=== PATIENT | female | born 1935 | race Caucasian/White ===

== ENCOUNTER → 2016-09-18 | Day surgery (SDC) | payer OTHER, MEDICARE ==
[2016-09-10 11:12] VITALS: Ht 162.6 cm; Wt 118.2 kg
[~2016-09-18] VITALS: Ht 162.6 cm; Wt 118.2 kg
[~2016-09-18] MED LIST: ALEN70TA4 PO; ASPCH81X PO; CALC500C70 PO; ENOX80IN SQ; HYDR12.55 PO; LIDOCAINE HCL 2% 2 ML VIAL (20MG/ML) ONE; LISI-461 PO; LPR25 PO; METO1TAB54 PO; MISCCAP80 PO; OMEP20CA9 PO; PHENYLEPHRINE 100MCG/ML 5ML SYR ONE; PITA2TAB PO; POTA1TAB97 PO; PROPOFOL IV EMULSION 10 MG/ML 20 ML VIAL IV ONE; SODIUM CHLORIDE 0.9% 500ML 500 ML IV ONE; SYN50 PO; WARF-246 PO; WARF-280 PO
--- NOTE | 2016-09-18 14:12 | Endo History and Physical ---
History & Physical Date of Service: Sep 18, 2016. Chief Complaint: Referring Physician: History of Present Illness hx polyps Past Surgical History Hx Cardiac Surgery: No Hx Internal Defibrillator: No Hx Pacemaker: No Hx Abdominal Surgery: Yes (APPY, EPI) Hx of Implantable Prosthesis: No Hx Post-Op Nausea and Vomiting: No Hx Cancer Surgery: No Hx Thoracic Surgery: No Hx Orthopedic: Yes (LUMBAR DISCECTOMY) Hx Urinary Tract Surgery: No Family History Colon CA Social History Smoking Status: Never Smoker Hx Substance Use: No Hx Alcohol Use: No Allergies Coded Allergies: Dipyridamole (Verified Allergy, Mild, 09/10/16) Methyldopa (Verified Allergy, Unknown, 09/10/16) Statins (Verified Allergy, Unknown, MUSCLE PAIN, 09/10/16) Sulfa Drugs (Verified Allergy, Unknown, RASH, 09/10/16) Uncoded Allergies: WOOL (Allergy, Unknown, ITCHING, 09/10/16) Current Medications Reported Home Medications Medications Dose Route/Sig Max Daily Dose Days Date Category Dose Instructions Lovenox (Enoxaparin Sodium) 80 Mg/0.8 Ml Inj 100 Mg SQ Q12H 09/18/16 Reported Aspirin Chewable (Aspirin) 81 Mg Chew 162 Mg PO QAM 09/10/16 Reported K-Tab (Potassium Chloride) 20 Meq Tab 1 Tab PO QAM 09/10/16 Reported Zestril (Lisinopril) 10 Mg Tab 10 Mg PO DAILY AT NOON 09/10/16 Reported Prilosec (Omeprazole) 20 Mg Cap 20 Mg PO QAM 09/10/16 Reported Reglan (Metoclopramide Hcl) 5 Mg Tab 5 Mg PO BID 09/10/16 Reported Probiotic (Probiotic Product) 1 Cap Cap 1 Cap PO QPM 09/10/16 Reported Fosamax (Alendronate Sodium) 70 Mg Tab 70 Mg PO WK 09/10/16 Reported Warfarin Sodium 2.5 Mg Tab 2.5 Mg PO 3XWK 03/18/13 Reported TUES,FRI,SUN Lopressor (Metoprolol Tartrate) 25 Mg Tab 1 Dose PO BID 03/18/13 Reported 2 TABS IN AM 1 TAB IN PM Hydrochlorothiazide 12.5 Mg Tab 12.5 Mg PO QAM 03/18/13 Reported Livalo (Pitavastatin Calcium) 2 Mg Tab 2 Mg PO QPM 03/18/13 Reported Warfarin Sodium 5 Mg Tab 5 Mg PO 4XWK 03/18/13 Reported MON,WED,THURS,SAT Synthroid * (Levothyroxine Sodium) 0.05 Mg Tab 0.05 Mg PO QAM 08/25/08 Reported Vital Signs Weight (Kilograms): 118.18 Height (Feet): 5 Height (Inches): 4 Physical Exam AAO x3 Nl s1s2 lungs CTA Abd soft NT/ND + BS - CCE Assessment and Plan colonoscopy
--- NOTE | 2016-09-18 15:07 | GI REPORT ---
Procedure Date: 09/18/2016 2:07 PM Procedure: Colonoscopy Indications: High risk colon cancer surveillance: Personal history of colonic polyps Medicines: Propofol per Anesthesia Complications: No immediate complications. Estimated blood loss: Minimal. Estimated Blood Loss: Estimated blood loss was minimal. Procedure: Pre-Anesthesia Assessment: - Prior to the procedure, a History and Physical was performed, and patient medications and allergies were reviewed. The patient's tolerance of previous anesthesia was also reviewed. The risks and benefits of the procedure and the sedation options and risks were discussed with the patient. All questions were answered, and informed consent was obtained. Prior Anticoagulants: The patient has taken no previous anticoagulant or antiplatelet agents. ASA Grade Assessment: III - A patient with severe systemic disease. After reviewing the risks and benefits, the patient was deemed in satisfactory condition to undergo the procedure. After I obtained informed consent, the scope was passed under direct vision. Throughout the procedure, the patient's blood pressure, pulse, and oxygen saturations were monitored continuously. The Scope was introduced through the anus and advanced to the terminal ileum, with identification of the appendiceal orifice and IC valve. The colonoscopy was performed without difficulty. The patient tolerated the procedure well. The quality of the bowel preparation was good. Findings: The perianal and digital rectal examinations were normal. Pertinent negatives include normal sphincter tone, no palpable rectal lesions and no anal lesion or abnormality was detected. A 3 mm polyp was found in the rectum. The polyp was sessile. The polyp was removed with a cold biopsy forceps. Resection and retrieval were complete. Estimated blood loss was minimal. Verification of patient identification for the specimen was done by the physician and construction services technician using the patient's name and medical record number. A localized area of mildly congested mucosa was found in the distal rectum. Biopsies were taken with a cold forceps for histology. Estimated blood loss was minimal. Verification of patient identification for the specimen was done by the physician and construction services technician using the patient's name and medical record number. Non-bleeding internal hemorrhoids were found during retroflexion. The hemorrhoids were mild. The exam was otherwise without abnormality. The terminal ileum appeared normal. No additional abnormalities were found on retroflexion. Impression: - One 3 mm polyp in the rectum, removed with a cold biopsy forceps. Resected and retrieved. - Congested mucosa in the distal rectum. Biopsied. - Non-bleeding internal hemorrhoids. - The examination was otherwise normal. - The examined portion of the ileum was normal. Recommendation: - Discharge patient to home (ambulatory). - Resume regular diet. - Return to referring physician as previously scheduled. MD Venkatesh Abreu MD 09/18/2016 3:07:13 PM This report has been signed electronically. Note Initiated On: 09/18/2016 2:07 PM
--- NOTE | 2016-09-18 15:10 | Discharge Instructions ---
Endoscopy Patient Instructions Date / Procedure(s) Performed Sep 18, 2016. Colonoscopy Allergy Information Coded Allergies: Dipyridamole (Verified Allergy, Mild, 09/10/16) Methyldopa (Verified Allergy, Unknown, 09/10/16) Sulfa Drugs (Verified Allergy, Unknown, RASH, 09/10/16) Statins (Verified Adverse Reaction, Unknown, MUSCLE PAIN, 09/18/16) Uncoded Allergies: WOOL (Allergy, Unknown, ITCHING, 09/10/16) Discharge Date / Findings Sep 18, 2016. polyp rectum ; mild rectal inflammation Medication Instructions Stopped Medication(s): stopped Warfarin on Friday,bridged with Lovenox,last dose last radha Restart Stopped Medication(s): Reported Home Medications Medications Dose Route/Sig Max Daily Dose Days Date Category Dose Instructions Lovenox (Enoxaparin Sodium) 80 Mg/0.8 Ml Inj 100 Mg SQ Q12H 09/18/16 Reported Aspirin Chewable (Aspirin) 81 Mg Chew 162 Mg PO QAM 09/10/16 Reported K-Tab (Potassium Chloride) 20 Meq Tab 1 Tab PO QAM 09/10/16 Reported Zestril (Lisinopril) 10 Mg Tab 10 Mg PO DAILY AT NOON 09/10/16 Reported Prilosec (Omeprazole) 20 Mg Cap 20 Mg PO QAM 09/10/16 Reported Reglan (Metoclopramide Hcl) 5 Mg Tab 5 Mg PO BID 09/10/16 Reported Probiotic (Probiotic Product) 1 Cap Cap 1 Cap PO QPM 09/10/16 Reported Fosamax (Alendronate Sodium) 70 Mg Tab 70 Mg PO WK 09/10/16 Reported Warfarin Sodium 2.5 Mg Tab 2.5 Mg PO 3XWK 03/18/13 Reported TUES,FRI,SUN Lopressor (Metoprolol Tartrate) 25 Mg Tab 1 Dose PO BID 03/18/13 Reported 2 TABS IN AM 1 TAB IN PM Hydrochlorothiazide 12.5 Mg Tab 12.5 Mg PO QAM 03/18/13 Reported Livalo (Pitavastatin Calcium) 2 Mg Tab 2 Mg PO QPM 03/18/13 Reported Warfarin Sodium 5 Mg Tab 5 Mg PO 4XWK 03/18/13 Reported MON,WED,THURS,SAT Synthroid * (Levothyroxine Sodium) 0.05 Mg Tab 0.05 Mg PO QAM 08/25/08 Reported Resume previous med and continue bridge per coagluation clinic Reported Home Medications Medications Dose Route/Sig Max Daily Dose Days Date Category Dose Instructions Lovenox (Enoxaparin Sodium) 80 Mg/0.8 Ml Inj 100 Mg SQ Q12H 09/18/16 Reported Aspirin Chewable (Aspirin) 81 Mg Chew 162 Mg PO QAM 09/10/16 Reported K-Tab (Potassium Chloride) 20 Meq Tab 1 Tab PO QAM 09/10/16 Reported Zestril (Lisinopril) 10 Mg Tab 10 Mg PO DAILY AT NOON 09/10/16 Reported Prilosec (Omeprazole) 20 Mg Cap 20 Mg PO QAM 09/10/16 Reported Reglan (Metoclopramide Hcl) 5 Mg Tab 5 Mg PO BID 09/10/16 Reported Probiotic (Probiotic Product) 1 Cap Cap 1 Cap PO QPM 09/10/16 Reported Fosamax (Alendronate Sodium) 70 Mg Tab 70 Mg PO WK 09/10/16 Reported Warfarin Sodium 2.5 Mg Tab 2.5 Mg PO 3XWK 03/18/13 Reported TUES,FRI,SUN Lopressor (Metoprolol Tartrate) 25 Mg Tab 1 Dose PO BID 03/18/13 Reported 2 TABS IN AM 1 TAB IN PM Hydrochlorothiazide 12.5 Mg Tab 12.5 Mg PO QAM 03/18/13 Reported Livalo (Pitavastatin Calcium) 2 Mg Tab 2 Mg PO QPM 03/18/13 Reported Warfarin Sodium 5 Mg Tab 5 Mg PO 4XWK 03/18/13 Reported MON,WED,THURS,SAT Synthroid * (Levothyroxine Sodium) 0.05 Mg Tab 0.05 Mg PO QAM 08/25/08 Reported resume coumadin tonight and lovenox per coag clinic Provider Instructions Activity Restrictions - No exercising or heavy lifting for 24 hours. - Do not drink alcohol the day of the procedure. - Do not drive a car or operate machinery until the day after the procedure. - Do not make any important decisions or sign important papers in 24 hours after the procedure. Following Day: - Return to full activity which may include returning to work/school. Diet Start your diet with liquids and light foods (jello, soup, juice, toast). Then eat your usual diet if not nauseated. Treatment For Common After Affects For mild abdominal pain, bloating, or excessive gas: - Rest - Eat lightly - Lie on right side Follow-Up Information Follow-up with Dr. Sharmaine Boggs as scheduled Anesthesia Information What You Should Know You have had a procedure that required some medicine to reduce anxiety and discomfort. This treatment is called moderate sedation. After receiving the treatment, you may be sleepy, but you will be able to breathe on your own. The effects of the treatment may last for several hours. Follow these instructions along with Activity/Diet recommendations noted above: * Do NOT do anything where dizziness or clumsiness would be dangerous. * Rest quietly at home today, then you can be up and about tomorrow. * Have a responsible person stay with you the rest of today. * You may have had an I.V. today. If so, you may take the dressing off later today. Recommendations Call your doctor if: * Trouble breathing * Continuous vomiting for more than 24 hours * Temperature above 101 degrees * Severe abdominal pain or bloating * Pain not relieved by pain medicine ordered * There is increased drainage or redness from any incision * A large amount of rectal bleeding greater than 2-3 tablespoons. (If you had a polyp/s removed or have hemorrhoids, a small amount of blood - from the rectum is to be expected.) * You have any unanswered questions or concerns. IN THE EVENT OF A SERIOUS EMERGENCY, GO TO THE NEAREST EMERGENCY ROOM Your discharge instructions were prepared by provider Venkatesh Fountain. Patient Instructions Signature Page Jessica Jon Patient (or Guardian) Signature/Date: I have read and understand the instructions given to me by my caregivers. Caregiver/RN/Doctor Signature/Date: The above-named patient and/or guardian has received patient instructions on this date. + Original Patient Signature Page (only) stays with chart. Please make copy for patient.
--- NOTE | 2016-09-18 15:40 | Anesthesiology Progress Note ---
Anesthesia Post Op Note Date & Time Sep 18, 2016 at 15:37 Vital Signs Pain Intensity: 0 Vital Signs Past 12 Hours Date Time Temp Pulse Resp B/P Pulse Ox O2 Delivery O2 Flow Rate FiO2 09/18/16 15:26 76 16 169/83 100 Room Air 09/18/16 15:16 76 16 126/64 98 Room Air 09/18/16 15:03 36.7 78 16 188/85 98 Room Air 09/18/16 13:59 36.7 78 16 188/85 98 Room Air Notes Mental Status: alert / awake / arousable, participated in evaluation Pt Amnestic to Procedure: Yes Nausea / Vomiting: adequately controlled Pain: adequately controlled Airway Patency, RR, SpO2: stable & adequate BP & HR: stable & adequate Hydration State: stable & adequate Anesthetic Complications: no major complications apparent The patient is an 81 y/o female with a h/o HTN s/p colonoscopy with Dr. Fountain. Her BP was elevated at 188/75 HR 70 on admission as she did not take her BP medication today. It improved to 169/83 HR 76. She was instructed to take her BP medication as soon as she goes home. She understands and agrees.
[2016-09-18 15:43] VITALS: BP 168/80; PULSE 72; O2SAT 98
== END | disposition home or self-care (01) ==
LOC: C.GI 13:24
PROVIDERS: ATTEND Internal Medicine Gastroenterology
DX: Z12.11 Encounter for screening for malignant neoplasm of colon (principal); Z86.010 Personal history of colon polyps; K62.1 Rectal polyp; K64.8 Other hemorrhoids; I48.91 Unspecified atrial fibrillation; E11.9 Type 2 diabetes mellitus without complications; Z88.2 Allergy status to sulfonamides; Z88.1 Allergy status to other antibiotic agents; Z90.89 Acquired absence of other organs; Z98.890 Other specified postprocedural states; Z79.01 Long term (current) use of anticoagulants; Z68.41 Body mass index [BMI] 40.0-44.9, adult; E66.01 Morbid (severe) obesity due to excess calories; Z80.0 Family history of malignant neoplasm of digestive organs

== ENCOUNTER → 2016-12-20 | Outpatient (CLI) | payer OTHER, MEDICARE ==
[~2016-12-20] MED LIST changes: -CALC500C70 PO; -LIDOCAINE HCL 2% 2 ML VIAL (20MG/ML) ONE; -PHENYLEPHRINE 100MCG/ML 5ML SYR ONE; -PROPOFOL IV EMULSION 10 MG/ML 20 ML VIAL IV ONE; -SODIUM CHLORIDE 0.9% 500ML 500 ML IV ONE
--- NOTE | 2016-12-20 12:35 | MAMMOGRAPHY REPORT ---
BILATERAL DIGITAL SCREENING MAMMOGRAM WITH CAD: 12/20/2016 TECHNIQUE: Current study was also evaluated with a Computer Aided Detection (CAD) system. Bilatera l CC and MLO views were obtained. COMPARISON: Comparison is made to exams dated: 12/15/2014 mammogram, 12/19/2015 mammogram, 11/19/2013 m ammogram, 11/06/2012 mammogram, 11/05/2011 mammogram, and 10/30/2009 mammogram - [facility] enter. BREAST COMPOSITION: There are scattered areas of fibroglandular density in both breasts. FINDINGS: No suspicious masses, calcifications, or areas of architectural distortion are noted in e ither breast. There has been no significant interval change compared to prior exams. There are stab le postsurgical changes from bilateral reduction mammoplasty. Bilateral benign-appearing calcificat ions are not significantly changed. IMPRESSION: ACR BI-RADS CATEGORY 2: BENIGN There is no mammographic evidence of malignancy. A 1 year screening mammogram is recommended. The p atient will receive written notification of the results. Approximately 10% of breast cancers are not detected with mammography. A negative mammographic repor t should not delay biopsy if a clinically suggestive mass is present. Stepahnia Abbott M.D. ah/:12/20/2016 12:25:27 Art Therapist: Tsering ORTIZ(Tomasa)(M), [facility] letter sent: Normal 1/2 BI-RADS Code: ACR BI-RADS Category 2: Benign
== END | disposition home or self-care (01) ==
LOC: C.MAMM 09:44
PROVIDERS: ATTEND Family Medicine
DX: Z12.31 Encounter for screening mammogram for malignant neoplasm of breast (principal)

== ENCOUNTER → 2017-04-04 | Outpatient (CLI) | payer OTHER, MEDICARE ==
--- NOTE | 2017-04-04 15:33 | DIAGNOSTIC IMAGING REPORT ---
RIGHT FINGER(S) MIN 2 VIEWS ROUTINE HISTORY: 82 years-old Female R THUMB INJURY/LACERATION Right COMPARISON: None available TECHNIQUE: 3 views of the right thumb. FINDINGS: There is mild soft tissue swelling of the distal first digit without right opaque foreign body. Severe joint space narrowing with subchondral sclerosis and marginal osteophytic spurring involves the first DIP joint. No erosive changes are seen. There is moderate osteoarthritis of the first carpometacarpal joint with mild metacarpophalangeal degenerative changes present. The bones are mildly demineralized. IMPRESSION: 1. Mild soft tissue swelling of the distal first digit without acute bony abnormality or radiopaque foreign body. 2. 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 The above report was generated using voice recognition software. It may contain grammatical, syntax or spelling errors. Electronically signed by: Aris Hilton M.D. 04/04/2017 3:32 PM Dictated Date/Time: 04/04/2017 3:30 PM
== END | disposition home or self-care (01) ==
LOC: C.RAD 14:56
PROVIDERS: ATTEND Physician Assistant Surgical
DX: S61.011A Laceration without foreign body of right thumb without damage to nail, initial encounter (principal); X58.XXXA Exposure to other specified factors, initial encounter; M18.11 Unilateral primary osteoarthritis of first carpometacarpal joint, right hand

== ENCOUNTER 2020-07-06 05:18 | Observation (INO) ==
--- NOTE | 2020-06-20 13:49 | PAT Medication Instructions ---
Medication Instructions Date of Service June 20, 2020 Home Medications hydrochlorothiazide 12.5 mg PO QAM levothyroxine 50 mcg PO QAM lisinopril 10 mg PO 1200 metoclopramide HCl 5 mg PO BID metoprolol tartrate 50 mg PO HS metoprolol tartrate 75 mg PO QAM potassium chloride 20 meq PO QAM pravastatin 40 mg PO HS warfarin 2.5 mg PO 2XWK warfarin 5 mg PO 3XWK Probiotic 0 mmu cells PO QPM omeprazole 20 mg PO QAM acetaminophen [Tylenol Extra Strength] 1,000 mg PO Q6H PRN aspirin [Aspir-81] 81 mg PO QAM ASK your prescriber and surgeon warfarin DO NOT take the morning of surgery hydrochlorothiazide 12.5 mg PO QAM lisinopril 10 mg PO 1200 potassium chloride 20 meq PO QAM Take morning of surgery With a small sip of water, OTHERWISE NOTHING TO EAT OR DRINK AFTER MIDNIGHT: levothyroxine 50 mcg PO QAM metoprolol tartrate 75 mg PO QAM metoclopramide HCl 5 mg PO BID omeprazole 20 mg PO QAM acetaminophen [Tylenol Extra Strength] 1,000 mg PO Q6H PRN (okay to take up to 4 hours prior to surgery if needed) aspirin [Aspir-81] 81 mg PO QAM Take evening before surgery metoclopramide HCl 5 mg PO BID metoprolol tartrate 50 mg PO HS pravastatin 40 mg PO HS Probiotic 0 mmu cells PO QPM acetaminophen [Tylenol Extra Strength] 1,000 mg PO Q6H PRN (if needed) Other Notes If you have any questions please call us at [phone] or [phone] or [phone] or [phone]
--- NOTE | 2020-06-21 12:03 | Anesthesiology Consultation ---
Date of Service June 21, 2020 Assessment & Plan (1) Encounter for pre-operative examination: COVID Status: As of 06/21 assessment, patient denies travel to endemic area, known exposure/sick contacts, or symptoms of COVID19. Patient instructed that they and their household members must follow strict social distancing guidelines, wear a mask in public and avoid travel for 14 days prior to surgery. Preoperative COVID19 testing to be completed prior to surgery per surgeon's ar rangements. Patient made aware to self-isolate as much as possible between COVID testing and surgery. Surgery previously scheduled for end of April 2020, but patient's was placed in hospice care and has since . Patient had medical and cardiac clearance done at that time. Cardio Clearance 02/23/20 = "No absolute contraindications to surgical knee replacement though elevated risk giving agent underlying morbidities. Will need anticoagulation managed closely perioperatively. Fluid status cautiously managed given underlying valvular disease." Patient reports she will not be seeing her PCP, but PCP will be sending new clearance letter to surgeon's office, presumably once pre-op labs are resulted. Chart Review Chart Review: Acceptable Risk for Surgery (pending surgeon-ordered PCP clearance letter) and Patient seen in Pre Admission Testing Teaching & Discussion Instructed NPO after midnight before surgery, except medications with 15 cc of water. Medication instructions provided according to the PAT guidelines. History Surgery Operation Date: 07/06/20 07:15 Proposed Procedures p Left Total Knee Arthroplasty - Godfrey Sam MD Height/Weight Height: 5 ft 4 in Weight: 75.6 kg Allergies Allergy/AdvReac Type Severity Reaction Status Date / Time benzethonium chloride Allergy Intermediate Rash Verified 06/13/20 09:48 [From Lanacane Shelby] benzocaine Allergy Intermediate Rash Verified 06/13/20 09:48 [From Lanacane Shelby] [id number]-Lvm Reductase Allergy Intermediate MUSCLE PAIN Verified 06/13/20 09:48 Inhibitor wool Allergy Intermediate Rash and Verified 06/13/20 09:48 Itching dipyridamole Allergy Mild Unknown Verified 06/13/20 09:48 sertraline Allergy Mild Rash Verified 06/13/20 09:48 Sulfa (Sulfonamide Allergy Mild RASH Verified 06/13/20 09:48 Antibiotics) venlafaxine Allergy Mild Rash Verified 06/13/20 09:48 methyldopa Allergy Unknown Unknown Verified 06/13/20 09:48 Medications Home Medications Medication Instructions Recorded Confirmed Last Taken hydrochlorothiazide 12.5 mg PO QAM 07/31/18 06/13/20 09/19/18 levothyroxine 50 mcg PO QAM 07/31/18 06/13/20 09/19/18 lisinopril 10 mg PO 1200 07/31/18 06/13/20 09/19/18 metoclopramide HCl 5 mg PO BID 07/31/18 06/13/20 09/19/18 metoprolol tartrate 50 mg PO HS 07/31/18 06/13/20 09/18/18 metoprolol tartrate 75 mg PO QAM 07/31/18 06/13/20 09/19/18 potassium chloride 20 meq PO QAM 07/31/18 06/13/20 09/19/18 pravastatin 40 mg PO HS 07/31/18 06/13/20 09/18/18 warfarin 2.5 mg PO 2XWK 07/31/18 06/13/20 09/17/18 18:00 warfarin 5 mg PO 3XWK 07/31/18 06/13/20 09/18/18 18:00 Probiotic 0 mmu cells PO QPM 09/19/18 06/13/20 09/18/18 omeprazole 20 mg PO QAM 12/03/19 06/13/20 Unknown acetaminophen [Tylenol Extra 1,000 mg PO Q6H PRN 04/06/20 06/13/20 Unknown Strength] aspirin [Aspir-81] 81 mg PO QAM 06/13/20 06/13/20 Unknown Past Medical History Medical History Arthritis Atrial fibrillation FOLLOWS WITH DR. FLORES, on Coumadin. Borderline diabetes DIET MANAGED Constipation CVA (cerebral vascular accident) ~ 2014. No long-term deficits, on ASA 81mg. GERD (gastroesophageal reflux disease) Hypercholesterolemia Hypertension Hypothyroidism SOBOE (shortness of breath on exertion) Spinal stenosis Exercise / Class Metabolic Activity III < 4 Walking/Shop/Light housework (Can do 1 FOS but does get SOB, denies any chest pain. No SOB or CP with ambulation.) Patient did not report chest pain today, but at 04/11/20 PAT appt, reported "Occasional "twinges" of chest pain under L breast at rest or with activity." Chronic for many years, cardio aware. Normal coronaries on caths x 3. Past Family History Family History Mother Diabetes Sister Family hx of colon cancer Father Diabetes Other Cervical malignancy GI malignancy Heart disease Liver malignancy Past Surgical History Surgical History Family history of reaction to anesthesia BROTHER-NAUSEA/VOMITING History of appendectomy History of cardiac catheterization X 3 (NO STENTS PLACED). Normal coronaries on last cath [address] Flores. History of colonoscopy History of discectomy LUMBAR History of tonsillectomy and adenoidectomy History of tooth extraction Hx of hysterectomy Past Anesthesia History No Hx of Anesthesia Complications and No Family Hx of Anesthesia Complications (other than borther PONV) History of PONV No Hx of PONV and No Hx of Motion Sickness Social History Smoking Status: Never smoker Do You Dip or Chew Tobacco: No Hx Alcohol Use: No Hx Substance Use: No substance use type: does not use Review of Systems Pt denies any recent chest pain, shortness of breath, palpitations, cough, fe arden, URI, or uncontrolled acid reflux (controlled with med). Physical Exam Vital Signs BP: 148/79 P: 73bpm SPO2: 98% RA T: 97.7 F R: 16 ENMT Mouth: + dental restorations (one corwn on molar upper R); no chipped teeth and no loose teeth Thyromental Distance: < 3.5 Finger Breadths (3) Mallampati Class: I Neck normal visual inspection; neck extension not limited Respiratory normal respiratory effort Auscultation: lungs clear to auscultation bilaterally Cardiovascular Rate/Rhythm: regular rate; + abnormal rhythm (irreg irreg) Heart Sounds: no murmur Vessels: + carotid bruit (? R sided, very soft) Testing Laboratory Results 06/21/20 12:14 06/21/20 12:14 PT 25.6 Seconds (9.0-12.0) H 06/21/20 12:14 INR 2.6 (0.9-1.1) H 06/21/20 12:14 APTT 35.2 Seconds (21.0-31.0) H 06/21/20 12:14 Hemoglobin A1c 6.1 % (4.5-5.6) H 06/21/20 12:14 Urine Color Yellow 06/21/20 12:14 Urine Appearance Clear (Clear) 06/21/20 12:14 Urine pH 7.0 (4.5-7.5) 06/21/20 12:14 Ur Specific [place] 1.013 (1.000-1.030) 06/21/20 12:14 Urine Protein Negative (Negative) 06/21/20 12:14 Urine Glucose (UA) Negative (Negative) 06/21/20 12:14 Urine Ketones Negative (Negative) 06/21/20 12:14 Urine Nitrite Negative (Negative) 06/21/20 12:14 Ur Leukocyte Esterase Negative (Negative) 06/21/20 12:14 Blood Type A Positive 06/21/20 12:14 Antibody Screen NEGATIVE 06/21/20 12:14 Other Testing Electrocardiogram Date: 02/23/20 Findings: + AFIB @ (86bpm) Anterior infarct, cited on or before 12/18/12. No significant change from 10/09/18. Echocardiogram Date: 02/23/20 EF: 55-59% RWMA: + none The rhythm during the transthoracic echo examination was atrial fibrillation with controlled ventricular response. The left atrium is mildly enlarged. Moderate to severe aortic regurgitation. Mild mitral regurgitation is present and posteriorly directed. Mild tricuspid regurgitation is present. Estimated PASP is 46 mmHg. The proximal ascending thoracic aorta is mildly enlarged. Stress Test Date: 11/18/18 Type: nuclear Resting EF: 64% Lexiscan nuclear stress test reveals a small sized reversible perfusion defect of mild intensity comes in the apical anterior, and apical segments consistent with ischemia in this territory. Gated SPECT imaging reveals normal myocardial thickening and wall motion. Heart rate response and blood pressure response to pharmacologic stress was normal. A. fib was noted throughout the study. *This was reviewed by cardiology at the time, and patient requested continued conservative medical management. "Chronic stable chest pain. History of normal coronary arteries by cardiac catheterization x 3."
[2020-06-21 12:55] LABS: Basophils # (auto) 0.01 K/uL (0-0.2); Basophils % (auto) 0.2 %; Eosinophils # (auto) 0.08 K/uL (0-0.5); Eosinophils % (auto) 1.3 %; Hematocrit (blood only) 39.6 % (37-47); Hemoglobin 12.5 g/dL (12.0-16.0); Immature Granulocytes # (auto) 0.01 K/uL (0.00-0.02); Immature Granulocytes % (auto) 0.2 %; Lymphocytes # (auto) 1.69 K/uL (1.2-3.4); Lymphocytes % (auto) 26.7 %; Mean Corpuscular Hemoglobin 29.3 pg (25-34); Mean Corpuscular Hgb Conc 31.6 g/dL (32-36); Mean Corpuscular Volume 92.7 fL (80-100); Mean Platelet Volume 9.6 fL (7.4-10.4); Monocytes # (auto) 0.51 K/uL (0.11-0.59); Neutrophils # (auto) 4.04 K/uL (1.4-6.5); Neutrophils % (auto) 63.6 %; Platelet Count 273 K/uL (130-400); RDW Coefficient of Variation 14.8 % (11.5-14.5); RDW Standard Deviation 50.4 fL (36.4-46.3); Red Blood Count 4.27 M/uL (4.2-5.4); White Blood Count 6.34 K/uL (4.8-10.8)
[2020-06-21 12:57] LABS: Appearance Urine Clear (Clear); Bilirubin Urine Negative (Negative); Blood Urine Negative (Negative); Color Urine Yellow; Glucose Urine UA Negative (Negative); Ketones Urine Negative (Negative); Leukocyte Esterase Urine Negative (Negative); Nitrite Urine Negative (Negative); Protein Urine Negative (Negative); Specific Gravity Urine 1.013 (1.000-1.030); Urobilinogen Urine Negative (Negative)
[2020-06-21 13:18] LABS: INR 2.6 (0.9-1.1); Partial Thromboplastin Ratio 1.3; Partial Thromboplastin Time 35.2 Seconds (21.0-31.0); Prothrombin Time 25.6 Seconds (9.0-12.0)
[2020-06-21 13:33] LABS: Estimated Average Glucose 128 mg/dl; Hemoglobin A1C 6.1 % (4.5-5.6)
[2020-06-21 14:35] LABS: Potassium 4.6 mmol/L (3.5-5.1)
[2020-06-21 15:31] LABS: BUN Creatinine Ratio 20.7 (10-20); Calcium 9.4 mg/dl (8.5-10.1); Creatinine Clr Calc Pharmacy 50.8 ml/min; Est GFR (African American) 76.2; Est GFR (Non-African American) 65.7
[2020-07-06] MEDS ORDERED: ceFAZolin 2000MG 2,000 MG/15 ML SYR IV SCH (06:00)
[2020-07-06] MEDS ORDERED: METOCLOPRAMIDE HCL 10 MG TABLET PO SCH (06:00)
[2020-07-06] MEDS ORDERED: traMADol HCL 50 MG TABLET PO SCH (06:00)
[2020-07-06] MEDS ORDERED: ACETAMINOPHEN 500 MG TAB PO SCH (06:00)
[2020-07-06] MEDS ORDERED: TRANEXAMIC ACID 1,000 MG **IV Pre-op IV SCH (06:00)
[2020-07-06] MEDS ORDERED: CeleBREX 200 MG CAP PO SCH (06:00)
[2020-07-06] MEDS ORDERED: LR 15ML/HR IV SCH (06:00)
[2020-07-06] MEDS ORDERED: dexAMETHasone 4 MG TAB PO SCH (06:00)
[2020-07-06] MEDS ORDERED: TRANEXAMIC ACID 1,000 MG **IV Intra-op IV SCH (06:00)
[2020-07-06] MEDS ORDERED: FAMOTIDINE 20 MG TAB PO SCH (06:00)
[2020-07-06] MEDS ORDERED: LR 60ML/HR IV SCH (06:00)
[2020-07-06] MEDS ORDERED: BUPIVACAINE 0.5 % 5 MG/1 ML PF 10ML VIAL ONE (06:31)
[2020-07-06] MEDS ORDERED: BUPIVACAINE 0.25% 30 ML VIAL ONE (06:32)
[2020-07-06 06:33] LABS: INR 1.1 (0.9-1.1); Prothrombin Time 11.6 Seconds (9.0-12.0)
[2020-07-06] MEDS ORDERED: LIDOCAINE HCL 2% 2 ML VIAL/AMP(20MG/ML) INFIL ONE (06:49)
[2020-07-06] MEDS ORDERED: PROPOFOL IV EMULSION 10 MG/ML 20 ML VIAL IV ONE (06:49)
[2020-07-06] MEDS ORDERED: fentaNYL citrate 100 MCG/2 ML VIAL ONE (06:52)
[2020-07-06] MEDS ORDERED: MIDAZOLAM HCL 1 MG/ML 2ML VIAL ONE (06:53)
[2020-07-06] MEDS ORDERED: ORTHO JOINT ANESTHETIC ONE (07:07)
--- NOTE | 2020-07-06 07:21 | History & Physical Bridge Note ---
Date of Service July 06, 2020 History & Physical Bridge Note I have examined the patient, reviewed the History & Physical and in the interval since the performance of the History & Physical I have noted the following changes of clinical significance: no changes noted
[2020-07-06] MEDS ORDERED: ROPIVACAINE 0.5% HCL/PF 150 MG, BUPIVACAINE 0.5% MPF 30 ML, EPINEPHrine 30MG/30ML (OR U... INSTIL ONE (07:30)
--- NOTE | 2020-07-06 07:32 | History & Physical Report ---
Date of Service July 06, 2020 Assessment & Plan Admission and Anticipated Discharge Date Admission Date: Assessment & Plan (1) Osteoarthritis of left knee: PRE-OP Diagnosis: Left knee osteoarthritis Planned Procedure: Left total knee arthroplasty Plan: Patient is scheduled to undergo this procedure at the [facility] on July 06, [address] Godfrey Sam. Risks and complications of the procedure such as: Infection, bleeding, pain, scarring, nerve or blood vessel damage, weakness, wound problems, stiffness, incomplete relief of symptoms, hardware failure, hardware loosening, wear, fracture, tendon or ligament injury, blood clots, embolism, heart attack, stroke and were explained to the patient at her visit today by Dr. Sam. Patient understood the risks and informed consent form the procedure was obtained. She also understands the risks of proceeding with surgical intervention during the COVID-19 pandemic. Currently she is asymptomatic and was advised that she will be tested for COVID prior to her surgery. Patient is scheduled for her preanesthesia appointment at the hospital later this afternoon. While she is at the hospital she will obtain a CBC with differential, complete metabolic panel, PT/INR, blood type and screen, urinalysis, urine culture and sensitivity, and EKG, hemoglobin A1c and a nasal culture for MRSA. We have already obtained preoperative medical clearance from the patient's technical services coordinator Dr. Ethan Flores, and we have obtained clearance from her primary care provider Dr. Sharmaine Kelly. During today's visit we discussed specifics of the surgery, the use of antibiotics prior to dental procedures, discharge planning, in-home physical therapy for 2 weeks, DVT prophylaxis, pain management and we reviewed the total knee arthroplasty packet. Patient states she does not need a handicap placard because she already has 1 for her vehicle. She has a walker that she will bring with her on the day of surgery. I advised her that we will provide her with medications for pain control upon discharge from the hospital. She is scheduled for her 2-week postoperative follow-up with myself. Patient verbalized understanding of all information provided during today's visit. She thanked us for the care she received. Patient states she has questions or concerns prior to her surgery, she will contact clinic. History of Present Illness Primary Care Provider: Sharmaine Kelly MD History of Present Illness Chief Complaint: Chief Complaint: Left knee pain Primary Care Provider: Sharmaine Kelly MD History of Present Illness (including history relevant to procedure): HPI this 85-year-old female presents the clinic today for her preoperative history and physical. Patient complains of a 2-year history of medial sided knee pain that is become persistent. She is failed conservative treatment with icing, injections, physical therapy, home exercise regimens, use of extra strength Tylenol and stretching. Patient is not able to take anti-inflammatory agents because of her atrial fibrillation. Past Medical History: Problems: Osteoarthritis of left knee Afib Pre-op evaluation Decubitus ulcer of sacral region, stage 2 Accidental fall Acute knee pain Chronic constipation Bright red rectal bleeding Mastalgia Cutaneous wart Acute sciatica Candidal vaginitis Hypothyroidism Stroke/cerebrovascular accident Hyperlipidemia Hypertension Atrial fibrillation Diabetes Arthritis Gastroparesis Procedure History Procedure Procedure Date Comments Appendectomy Total hysterectomy History of tonsillectomy Discectomy Mammogram 02/11/2019 - IMPRESSIN: ACR BI-RADS CATEGORY 2: BENIGNThere is no mammographic evidence of malignancy. A 1 year screening mammogram is recommended. (02/12/2020) The patient will receive written notification of the results. [facility]. Left basilar opacities suggest atelectasis2.. Cardiomegaly without overt pulmonary edema [facility] 1 injuries of the brachialis, biceps brachii, and triceps muscles2. Low grade tear of the common extensor tendons X-ray of right [facility] Moderate patellofemoral arthritic change2. No acute fractures CT of head [facility] No acute intracranial findings2. Old bilateral frontal lobe infarcts3. Acute nasal bone fractures4. Frontal scalp hematoma CT of face [facility]2018 [facility]. Acute nasal bone fractures2. Smal frontal scalp hematoma MRI of brain without contrast [facility]19[facility]2018 [facility] No acute intracranial findings2. No evidence of acute intracranial hemorrhage3. Old bilateral frontal lobe infarcts and moderate to extensive white matter disease likely on a small vessel ischemic basis4. No evidence of intracranial mass5. No evidence of acute or subacute infarction6. Frontal scalp hematoma CT scan - whole body 09/19/2018 - no acute intracranial findingsno evidence of acute intracranial hemorrhageold bilateral frontal lobe infarcts and moderate to extensive white matter discease likely on a small vessel ischemic basis. Eye examination 09/15/2018 - No evidence of retinopathy. [facility] BI-RADS CATEGORY 1: NEGATIVENo evidence of malignancy Eye examination 08/19/2017 - No evidence of retinopathy. Fingers X-ray 04/04/2017 - 1. Mild soft tissue swelling of the distal first digit without acute bony abnormality or radiopaque foreign body.2. Severe first digit interphlangeal and moderate carpometacarpal osteoarthritis. Mammogram 12/20/2016 - No mammographic evidence of malignancy. Colonoscopy 09/18/2016 - Pathology results: A) Rectum, plypectomy: nonspecific benign polyp B) Distal rectum, biopsy: benign rectal mucosa with specific abnormality. See comment. Comment: The rectal biopsy shows unremarkable architecture. There is no acute colitis. I do not see features of lymphocytic colitis or collagenous colitis. No granuloma are noted. I do not see clear evidence of colitis or any specific process. There is no evidence of a neoplasm. - One 3 mm polyp in the rectum , removed with a cold biopsy forceps, resected and retrieved. Congested mucosa in the distal rectum, biopsied. Non-bleeding internal hemorrhoids. the examination otherwise normal. The examined portion of the ileum was normal. [facility] Bone density scan 06/20/2016 - T-scores : spine 1.5; L femur neck -1.9; R femur neck -1.5; total femur -1.6; forearm -0.7; significantly improved from 04/17. - T-Score -2.3 Mammogram 12/19/2015 - There is no mammographic evidence of malignancy. A 1 year screening is recommended. Dilated retinal eye exam with interpretation by an jogger operator or employee development manager documented and reviewed (DM) 07/13/2015 - no retinopathy Mammogram 12/15/2014 - there is no mammographic evidence of malignancy. a 1 yr screen mamogram is recommeneded Mammogram 11/19/2013 - No evidence of malignancy. One year screening recommended. Holter monitor 09/03/2013 - Afib with controlled ventricular response rate. Average rate 80. Couple episodes of high rate episodes but not sustained. Rare PVC's. Eye examination 06/29/2013 - No diabetic retinopathy Coronary angiography 03/19/2013 - normal Dual energy X-ray absorptiometry (DEXA) scan T score 04/30/2010 - osteopenia at hip & forearm, spine normal Shoulder X-ray 04/13/2010 - Moderate degenerative changes and ostopenia.Downsloping acromion. CT scan of head 08/21/2009 - Actue/subacute ischemic infarct in left frontal lobe involving vascular territory of MCA without evidence of acute intracranial hemorrhage. Chronic right frontal lobe infarct.Periventricular and subcortical white matter hypodensities present which is nonspecific, commonly associated with chronic small vessel ischemic disease. CT of head 09/01/2008 - No acute intracranial findings. CT of brain 08/25/2008 - Very mild increase in size of posterior right frontal infarct.Secondary to normal evalution of infarct rather than true acute extension of structure.Mild chronic small vessel change.No evidence for actue intracranial abnormality. Chest x-ray 08/25/2008 - No acute process X-ray of abdomen 08/25/2008 - Mild ileus.No evidence for obstructive change at this time. CT of abdomen and pelvis 08/21/2008 - Abnormal mass in left rectus abdominis region of abdominal wall suggestion probable hematoma with active extravasation.No acute intraabdominal or intrapelvic process suspected. 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 CT of chest and abdomen 02/26/2008 - Mild atherosclerotic change of thoracic and abdominal aorta.No evidence for aneurysm or dissection.Remainder of study neg. US abdominal scan 02/26/2008 - Limited evidence of pancreas due to overlying bowel content.Eval of abdomen and abdominal aorta otherwise neg.No evidence for focal aneurysm. CT of head 03/10/2007 - No evidence of intracranial hemorrhage or mass effect.Focal encephalomalacic changes in right frontoparietal region suggestion chronic or subacute ischemic infarct.Decrease white matter attenuation suggestion chronic small vessel ischemic disease. Colonoscopy 03/25/2005 Breast reduction 09/08/1989 Allergies and Sensitivities: sulfa drugs Zocor(LFT elevation) Allergy Not found in Search Augmentin(diarrhea) sertraline(dizzy) venlafaxine(dizzy) methyldopa dipyridamole Social history: Patient denies tobacco or illicit drug use. She states she occasionally consumes an alcoholic beverage. Family history: Cancer, heart disease, diabetes, hypertension and stroke Current Home Meds: (Last Updated 04/11 12:48) (Tylenol Arthritis Extended Release) 1,300 mg PO q8h(aspirin 81 mg oral tablet) 81 mg PO Dailycarbonate (calcium (as carbonate) 600 mg oral tablet) 600 mg PO bidtopical (Voltaren 1% topical gel) 1 appl topical qid PRN: Pain 4g to affected area 4 times a day(hydroCHLOROthiazide 12.5 mg oral tablet) TAKE 1 TABLET EVERY DAY(levothyroxine 50 mcg (0.05 mg) oral tablet) TAKE 1 TABLET EVERY DAY(lisinopril 10 mg oral tablet) TAKE 1 TABLET EVERY DAY(metoclopramide 5 mg oral tablet) TAKE 1 TABLET TWICE DAILY(metoprolol tartrate 25 mg oral tablet) 3 tab PO in AM, 2 tab PO in evening; 90 day(omeprazole 20 mg oral delayed release capsule) TAKE 1 CAPSULE EVERY DAYchloride (potassium chloride 20 mEq oral tablet, extended release) TAKE 1 TABLET EVERY DAY(pravastatin 40 mg oral tablet) 40 mg PO Dailymedication (POTASSIUM CHLORIDE ER 20 MEQ Tablet Extended Release) TAKE 1 TABLET EVERY DAY(warfarin 5 mg oral tablet) take 1 tablet by mouth daily ON MON,FRI,,SAT and 1/2 tablet by mouth ON AND FRI Allergies Allergy/AdvReac Type Severity Reaction Status Date / Time [id number] Reductase Allergy Intermediate MUSCLE PAIN Verified 04/06/20 09:11 Inhibitor dipyridamole Allergy Mild Unknown Verified 04/06/20 09:11 sertraline Allergy Mild Rash Verified 04/06/20 09:11 Sulfa (Sulfonamide Allergy Mild RASH Verified 04/06/20 09:11 Antibiotics) venlafaxine Allergy Mild Rash Verified 04/06/20 09:11 benzethonium chloride Allergy Unknown Rash Verified 04/06/20 09:11 [From Lanacane Gardiner] benzocaine Allergy Unknown Rash Verified 04/06/20 09:11 [From Lanacane Gardiner] methyldopa Allergy Unknown Unknown Verified 04/06/20 09:11 WOOL Allergy Intermediate ITCHING, Uncoded 04/06/20 09:11 RASH Home Medications Home Medications Medication Instructions Recorded Confirmed Type aspirin [Aspir-81] 81 mg PO QAM 07/31/18 04/06/20 History hydrochlorothiazide 12.5 mg PO QAM 07/31/18 04/06/20 History levothyroxine 50 mcg PO QAM 07/31/18 04/06/20 History lisinopril 10 mg PO QAM 07/31/18 04/06/20 History metoclopramide HCl 5 mg PO BID 07/31/18 04/06/20 History metoprolol tartrate 50 mg PO HS 07/31/18 04/06/20 History metoprolol tartrate 75 mg PO QAM 07/31/18 04/06/20 History potassium chloride 20 meq PO QAM 07/31/18 04/06/20 History pravastatin 40 mg PO HS 07/31/18 04/06/20 History warfarin 2.5 mg PO 2XWK 07/31/18 04/06/20 History warfarin 5 mg PO 3XWK 07/31/18 04/06/20 History Probiotic 0 mmu cells PO QPM 09/19/18 04/06/20 History omeprazole 20 mg PO QAM 12/03/19 04/06/20 History acetaminophen [Tylenol Extra 1,000 mg PO Q6H PRN 04/06/20 04/06/20 History Strength] calcium carbonate-vitamin D3 1 cap PO QAM 04/06/20 04/06/20 History [Calcium 600 + D(3)] Past Med/Surg History Medical History Arthritis Atrial fibrillation (Chronic) FOLLOWS WITH DR. FLORES, on Coumadin. Borderline diabetes DIET MANAGED Constipation CVA (cerebral vascular accident) ~ 2014. No long-term deficits, on ASA 81mg. GERD (gastroesophageal reflux disease) Hypercholesterolemia Hypertension (Chronic) Hypothyroidism SOBOE (shortness of breath on exertion) Spinal stenosis Surgical History Family history of reaction to anesthesia BROTHER-NAUSEA/VOMITTING History of appendectomy History of cardiac catheterization X 3 (NO STENTS PLACED). Normal coronaries on last cath [address] Flores. History of colonoscopy History of discectomy LUMBAR History of tonsillectomy and adenoidectomy History of tooth extraction Hx of hysterectomy Family History Mother Diabetes Sister Family hx of colon cancer Father Diabetes Other Cervical malignancy GI malignancy Heart disease Liver malignancy Social History Smoking Status: Never smoker Second Hand Exposure: Yes (MOTHER SMOKED/SPOUSE YRS AGO); Hx Alcohol Use: No Hx Substance Use: No Preferred Language: Austrian Communication Ability: Effective Stone Engraver Required: No Beliefs That Will Affect Care: None marital status: Current Living Situation: Alone current occupational status: retired Feels Safe at Home: Yes Review of Systems All systems reviewed & are unremarkable except as noted in HPI & below Physical Exam Results & Data Laboratory Results Lab Results 04/11/20 04/11/20 04/11/20 Range/Units 15:12 15:17 15:17 WBC 5.35 (4.8-10.8) K/uL RBC 4.28 (4.2-5.4) M/uL Hgb 12.5 (12.0-16.0) g/dL Hct 39.3 (37-47) % MCV 91.8 (80-100) fL MCH 29.2 (25-34) pg MCHC 31.8 L (32-36) g/dL RDW Std Deviation 50.0 H (36.4-46.3) fL RDW Coeff of Charlene 14.8 H (11.5-14.5) % Plt Count 256 (130-400) K/uL MPV 9.5 (7.4-10.4) fL Immature Gran % (Auto) 0.2 % Neut % (Auto) 59.5 % Lymph % (Auto) 27.9 % [place] % (Auto) 10.7 % Eos % (Auto) 1.5 % Baso % (Auto) 0.2 % Neut # (Auto) 3.19 (1.4-6.5) K/uL Lymph # (Auto) 1.49 (1.2-3.4) K/uL [place] # (Auto) 0.57 (0.11-0.59) K/uL Eos # (Auto) 0.08 (0-0.5) K/uL Baso # (Auto) 0.01 (0-0.2) K/uL Immature Gran # (Auto) 0.01 (0.00-0.02) K/uL PT (9.0-12.0) Seconds INR (0.9-1.1) Sodium 138 (136-145) mmol/L Potassium 4.9 (3.5-5.1) mmol/L Chloride 103 (98-107) mmol/L Carbon Dioxide 27 (21-32) mmol/L Anion Gap 8.0 (3-11) BUN 20 H (7-18) mg/dl Creatinine 0.80 (0.6-1.2) mg/dl Est Cr Clr Drug Dosing 52.2 ml/min Est GFR ( Amer) 78.5 Est GFR (Non-Af Amer) 67.7 BUN/Creatinine Ratio 24.8 H (10-20) Glucose 91 (70-99) mg/dl Estimat Average Glucose mg/dl Hemoglobin A1c (4.5-5.6) % Calcium 9.7 (8.5-10.1) mg/dl Urine Color Urine Appearance (Clear) Urine pH (4.5-7.5) Ur Specific Kingsley (1.000-1.030) Urine Protein (Negative) Urine Glucose (UA) (Negative) Urine Ketones (Negative) Urine Blood (Negative) Urine Nitrite (Negative) Urine Bilirubin (Negative) Urine Urobilinogen (Negative) Ur Leukocyte Esterase (Negative) Urine WBC (Auto) (0-5) /hpf Urine RBC (Auto) (0-4) /hpf U Hyaline Cast (Auto) (0-5) /lpf U Epithel Cells (Auto) (0-5) /lpf Urine Bacteria (Auto) (Negative) Nasal Screen MRSA (PCR) (Negative) Blood Type A Positive Antibody Screen NEGATIVE 04/11/20 04/11/20 04/11/20 Range/Units 15:17 15:17 15:17 WBC (4.8-10.8) K/uL RBC (4.2-5.4) M/uL Hgb (12.0-16.0) g/dL Hct (37-47) % MCV (80-100) fL MCH (25-34) pg MCHC (32-36) g/dL RDW Std Deviation (36.4-46.3) fL RDW Coeff of Charlene (11.5-14.5) % Plt Count (130-400) K/uL MPV (7.4-10.4) fL Immature Gran % (Auto) % Neut % (Auto) % Lymph % (Auto) % [place] % (Auto) % Eos % (Auto) % Baso % (Auto) % Neut # (Auto) (1.4-6.5) K/uL Lymph # (Auto) (1.2-3.4) K/uL [place] # (Auto) (0.11-0.59) K/uL Eos # (Auto) (0-0.5) K/uL Baso # (Auto) (0-0.2) K/uL Immature Gran # (Auto) (0.00-0.02) K/uL PT 26.9 H (9.0-12.0) Seconds INR 2.7 H (0.9-1.1) Sodium (136-145) mmol/L Potassium (3.5-5.1) mmol/L Chloride (98-107) mmol/L Carbon Dioxide (21-32) mmol/L Anion Gap (3-11) BUN (7-18) mg/dl Creatinine (0.6-1.2) mg/dl Est Cr Clr Drug Dosing ml/min Est GFR ( Amer) Est GFR (Non-Af Amer) BUN/Creatinine Ratio (10-20) Glucose (70-99) mg/dl Estimat Average Glucose 128 mg/dl Hemoglobin A1c 6.1 H (4.5-5.6) % Calcium (8.5-10.1) mg/dl Urine Color Yellow Urine Appearance Clear (Clear) Urine pH 7.5 (4.5-7.5) Ur Specific Kingsley 1.010 (1.000-1.030) Urine Protein Negative (Negative) Urine Glucose (UA) Negative (Negative) Urine Ketones Negative (Negative) Urine Blood Negative (Negative) Urine Nitrite Negative (Negative) Urine Bilirubin Negative (Negative) Urine Urobilinogen Negative (Negative) Ur Leukocyte Esterase Trace H (Negative) Urine WBC (Auto) 1-5 (0-5) /hpf Urine RBC (Auto) 0-4 (0-4) /hpf U Hyaline Cast (Auto) 0 (0-5) /lpf U Epithel Cells (Auto) 5-10 H (0-5) /lpf Urine Bacteria (Auto) Negative (Negative) Nasal Screen MRSA (PCR) (Negative) Blood Type Antibody Screen 04/11/20 Range/Units 15:20 WBC (4.8-10.8) K/uL RBC (4.2-5.4) M/uL Hgb (12.0-16.0) g/dL Hct (37-47) % MCV (80-100) fL MCH (25-34) pg MCHC (32-36) g/dL RDW Std Deviation (36.4-46.3) fL RDW Coeff of Charlene (11.5-14.5) % Plt Count (130-400) K/uL MPV (7.4-10.4) fL Immature Gran % (Auto) % Neut % (Auto) % Lymph % (Auto) % [place] % (Auto) % Eos % (Auto) % Baso % (Auto) % Neut # (Auto) (1.4-6.5) K/uL Lymph # (Auto) (1.2-3.4) K/uL [place] # (Auto) (0.11-0.59) K/uL Eos # (Auto) (0-0.5) K/uL Baso # (Auto) (0-0.2) K/uL Immature Gran # (Auto) (0.00-0.02) K/uL PT (9.0-12.0) Seconds INR (0.9-1.1) Sodium (136-145) mmol/L Potassium (3.5-5.1) mmol/L Chloride (98-107) mmol/L Carbon Dioxide (21-32) mmol/L Anion Gap (3-11) BUN (7-18) mg/dl Creatinine (0.6-1.2) mg/dl Est Cr Clr Drug Dosing ml/min Est GFR ( Amer) Est GFR (Non-Af Amer) BUN/Creatinine Ratio (10-20) Glucose (70-99) mg/dl Estimat Average Glucose mg/dl Hemoglobin A1c (4.5-5.6) % Calcium (8.5-10.1) mg/dl Urine Color Urine Appearance (Clear) Urine pH (4.5-7.5) Ur Specific Kingsley (1.000-1.030) Urine Protein (Negative) Urine Glucose (UA) (Negative) Urine Ketones (Negative) Urine Blood (Negative) Urine Nitrite (Negative) Urine Bilirubin (Negative) Urine Urobilinogen (Negative) Ur Leukocyte Esterase (Negative) Urine WBC (Auto) (0-5) /hpf Urine RBC (Auto) (0-4) /hpf U Hyaline Cast (Auto) (0-5) /lpf U Epithel Cells (Auto) (0-5) /lpf Urine Bacteria (Auto) (Negative) Nasal Screen MRSA (PCR) Negative (Negative) Blood Type Antibody Screen Diagnostic Findings Studies (relevant to the procedure): X-rays: Show continued erosion of the proximal medial tibia with a obvious depression of the subchondral bone. Allergies Allergy/AdvReac Type Severity Reaction Status Date / Time benzethonium chloride Allergy Intermediate Rash Verified 07/06/20 05:38 [From Lanacane Gardiner] benzocaine Allergy Intermediate Rash Verified 07/06/20 05:38 [From Lanacane Gardiner] Hhanhhc-Hjv-Eek Reductase Allergy Intermediate MUSCLE PAIN Verified 07/06/20 05:38 Inhibitor wool Allergy Intermediate Rash and Verified 07/06/20 05:38 Itching dipyridamole Allergy Mild Unknown Verified 07/06/20 05:38 sertraline Allergy Mild Rash Verified 07/06/20 05:38 Sulfa (Sulfonamide Allergy Mild RASH Verified 07/06/20 05:38 Antibiotics) venlafaxine Allergy Mild Rash Verified 07/06/20 05:38 methyldopa Allergy Unknown Unknown Verified 07/06/20 05:38 Home Medications Home Medications Medication Instructions Recorded Confirmed Type hydrochlorothiazide 12.5 mg PO QAM 07/31/18 07/06/20 History levothyroxine 50 mcg PO QAM 07/31/18 06/13/20 History lisinopril 10 mg PO 1200 07/31/18 06/13/20 History metoclopramide HCl 5 mg PO BID 07/31/18 07/06/20 History metoprolol tartrate 50 mg PO HS 07/31/18 07/06/20 History metoprolol tartrate 75 mg PO QAM 07/31/18 06/13/20 History potassium chloride 20 meq PO QAM 07/31/18 07/06/20 History pravastatin 40 mg PO HS 07/31/18 07/06/20 History warfarin 2.5 mg PO 2XWK 07/31/18 07/06/20 History warfarin 5 mg PO 3XWK 07/31/18 07/06/20 History Probiotic 0 mmu cells PO QPM 09/19/18 07/06/20 History omeprazole 20 mg PO QAM 12/03/19 06/13/20 History acetaminophen [Tylenol Extra 1,000 mg PO Q6H PRN 04/06/20 07/06/20 History Strength] aspirin [Aspir-81] 81 mg PO QAM 06/13/20 06/13/20 History Lovenox 07/06/20 History Past Med/Surg History Medical History Arthritis Atrial fibrillation FOLLOWS WITH DR. FLORES, on Coumadin. Borderline diabetes DIET MANAGED Constipation CVA (cerebral vascular accident) ~ 2014. No long-term deficits, on ASA 81mg. GERD (gastroesophageal reflux disease) Hypercholesterolemia Hypertension Hypothyroidism SOBOE (shortness of breath on exertion) Spinal stenosis Surgical History Family history of reaction to anesthesia BROTHER-NAUSEA/VOMITING History of appendectomy History of cardiac catheterization X 3 (NO STENTS PLACED). Normal coronaries on last cath [address] Flores. History of colonoscopy History of discectomy LUMBAR History of tonsillectomy and adenoidectomy History of tooth extraction Hx of hysterectomy Family History Mother Diabetes Sister Family hx of colon cancer Father Diabetes Other Cervical malignancy GI malignancy Heart disease Liver malignancy Social History Smoking Status: Never smoker Second Hand Exposure: Yes (MOTHER SMOKED/SPOUSE YRS AGO); Do You Dip or Chew Tobacco: No; Tobacco Cessation Education Requested by Patient: No Hx Alcohol Use: No Hx Substance Use: No Preferred Language: Austrian Communication Ability: Effective Stone Engraver Required: No Beliefs That Will Affect Care: None marital status: Current Living Situation: Alone current occupational status: retired Other Information That Helps Us Care for You: No Feels Safe at Home: Yes Safety Concerns: Feels Safe At This Time Assistive Devices: Glasses Review of Systems All systems reviewed & are unremarkable except as noted in Subjective Physical Exam Physical Exam: Physical Exam: Physical Exam: (relevant to the procedure, including heart and lung evaluation) General: Alert and oriented x3 with proper grooming and hygiene Eyes: Pupils are equal and reactive to light with accommodation. Extraocular movements are intact Cardiac: Irregularly irregular rate and rhythm with no murmurs or gallops appreciated Lungs: Clear to auscultation throughout with no wheezing, rales or rhonchi Abdomen: Nonobese, nondistended, nontender with normal active bowel sounds Extremities: Left knee exam shows the patient's range of motion to be from 0-120 degrees today. She has a medial more than lateral joint line tenderness. Mild peripatellar tenderness. She has a 1+ effusion. Neuro: Cranial nerves II through XII are intact with no motor or sensory deficit Skin: Normal in appearance no open skin areas or discharge Results & Data ([facility]) Vital Signs (Past 12 Hours) Vital Signs Temp Pulse Resp BP Pulse Ox 07/06/20 06:15 72 20 158/90 H 99 07/06/20 05:40 36.5 C 85 20 171/100 H 99
[2020-07-06] MEDS ORDERED: ePHEDrine sulfate 50 MG/ML AMP IV PRN (07:38)
[2020-07-06] MEDS ORDERED: ONDANSETRON INJ 2 MG/ML 2 ML VIAL IV PRN ×2 (07:38→09:42)
[2020-07-06] MEDS ORDERED: fentaNYL citrate 100 MCG/2 ML VIAL IV PRN (07:38)
[2020-07-06] MEDS ORDERED: ATROPINE SULFATE 0.1 MG/ML 10ML SYR IV PRN (07:38)
[2020-07-06] MEDS ORDERED: MAGNESIUM HYDROXIDE SUSP 30 ML UDC PO PRN (09:42)
[2020-07-06] MEDS ORDERED: NALOXONE HCL 0.4 MG/1 ML VIAL/CARP IV PRN (09:42)
[2020-07-06] MEDS ORDERED: ALUMINUM/MAGNESIUM SUSP 30 ML UDC PO PRN (09:42)
[2020-07-06] MEDS ORDERED: diphenhydrAMINE 50 MG/ML VIAL IV PRN (09:42)
[2020-07-06] MEDS ORDERED: METOCLOPRAMIDE HCL INJ 5 MG/ML 2 ML VIAL IV PRN (09:42)
[2020-07-06] MEDS ORDERED: traMADol HCL 50 MG TABLET PO PRN (09:42)
[2020-07-06] MEDS ORDERED: bisacodyL 10 MG SUPP PR PRN (09:42)
--- NOTE | 2020-07-06 09:42 | Operative Report ---
Post Operative Report Pre & Post Diagnosis Operation Date: 07/06/20 07:15 Pre-Op Diagnosis: Left Knee Osteoarthritis Post-Op Diagnosis: Left Knee Osteoarthritis I identified the patient and participated in the time-out.: Yes Procedure Operation Date: 07/06/20 07:15 Actual Procedures p Left Total Knee Arthroplasty(Left) - Godfrey Sam MD Surgeon Godfrey Sam MD Judicial Administrative Assistant Cara Fitch PAKg Estimated Blood Loss 50 Findings Consistent with Post-Op Diagnosis Specimens none Complications none Disposition Accompanied Patient To Recovery: Yes Disposition: Recovery Room Description of Procedure I was present during the entire procedure assisting with positioning, prepping, draping, retraction, wound closure and dressing application. No fellow available. Please see Dr. Sam procedure note for specifics of the case. I attest to the content of the Intraoperative Record and any orders documented therein. Any exceptions are noted below.
--- NOTE | 2020-07-06 09:45 | Operative Report ---
Post Operative Report Pre & Post Diagnosis Operation Date: 07/06/20 07:15 Pre-Op Diagnosis: Left Knee Osteoarthritis Post-Op Diagnosis: Left Knee Osteoarthritis I identified the patient and participated in the time-out.: Yes Procedure Operation Date: 07/06/20 07:15 Actual Procedures p Left Total Knee Arthroplasty(Left) - Godfrey Sam MD Surgeon Godfrey Sam MD Assembly Technician CHIKI Fitch PA-C Estimated Blood Loss 50 Findings Consistent with Post-Op Diagnosis Specimens Bone and soft tissue contents from the left knee Drains None Anesthesia Type Spinal MAC Complications none Disposition Accompanied Patient To Recovery: No Disposition: Recovery Room Indications 85-year-old female with left knee pain refractory to conservative management. X-rays show [id number] arthritis with some collapse of the medial tibial plateau. I had a long discussion with her about the risks and benefits of surgery, alternatives to surgery, and expected outcomes. After reviewing all these she elected to proceed with surgery. All questions were answered. Informed consent was signed. Description of Procedure Patient was identified in the preoperative holding area where the surgical site, left knee, was marked. Patient was brought back to the operating room, placed on the operating room table, and IV sedation was administered. All bony prominences were padded. Perioperative antibiotics and tranexamic acid were administered. Exam under anesthesia was performed. She had mild pseudolaxity to valgus stressing, opening about 5 mm, range of motion 5 to 135. Ortiz catheter was then placed using sterile technique. The surgical site was prepped and draped in the normal sterile fashion. Prior to incision a multidisciplinary timeout was called. All in the room were in agreement. We began by exsanguinating the limb with an Esmarch bandage. Tourniquet was inflated to 250 mmHg. A 14 cm long incision was made over the anterior aspect of the knee. Varicose veins were identified and cauterized. I dissected through the subcutaneous tissues to the level of the fascia. Full-thickness flaps are raised above the fascia. A median parapatellar arthrotomy was made. Half the fat pad was excised. A medial release was performed with Bovie electrocautery on the proximal tibia. Synovitis in the suprapatellar pouch was removed. The patella was then everted and held with 2 towel clips. The thickness of the patella was measured at 23 mm. Patellar resection was performed. Caliper showed the patella thickness now to be 14 mm. A size 38 mm trial was placed and had a great fit. The 3 drill holes were placed then the trial button was placed. The patellar thickness was now 23 mm which I was very happy with. The patellar trial was then removed, the patella was everted and the knee was flexed up. Osteophytes were removed from the femoral condyles and intercondylar notch. The ACL and PCL were excised. Intramedullary drill guide was drilled into the femur. Distal femoral cutting guide was placed set at 5 degrees of valgus to resect 11 mm off the distal femur. Distal femoral resection was made without difficulty. The tibia was then exposed. The lateral meniscus was sharply excised. The tibial cutting jig was positioned to resect 10 mm off the less involved compartment. The jig was then pinned in position and the tibial cut was made. We then brought the knee into full extension. Lamina spreaders were placed. The medial meniscus was excised. The extension block was then placed for 10 mm thickness poly. This gave us full extension and excellent stability to varus and valgus. Next the knee was flexed up and the femoral sizing guide was placed. The patient sized to a size [] femur. The 3 degree external rotation jig was used to create 2 holes in the distal femur. The jig was removed and the holes were compared to Whitesides axis and the epicondylar axis. We were happy with the rotation, and therefore placed a size three 4-in-1 cutting jig and pinned this into position. Our 4 cuts were made. The cutting jig was removed. The flexion block was then placed with the knee held at 90 degrees. There was excellent stability to varus and valgus at 90 degrees with no gapping medially or laterally. Next the box cutting jig was placed on the distal femur. The box cut was made and the femoral trial was impacted into position. The tibia was sized to a 3 for an all-polyethylene component. The tibial tray was positioned in external rotation on the cut tibial surface and the knee was brought through a full range of motion. Bovie was used to millie the rotation of the tibial component. We then pinned the tibial tray into position and used the intramedullary drill followed by the keel punch. The trial polyethylene was then placed and the knee was brought through a full range of motion. I was very happy with the stability through a full range of motion, and the patellar tracking was excellent. Next the trial components were removed. The bone cuts were then irrigated and dried while the cement was mixed on the back table. The femoral component was cemented on first. Excess cement was removed. A lap sponge was placed over the femoral component for protection, then the tibia was subluxated anteriorly. The tibial component was then cemented in place. Again excess cement was removed. The trial polyethylene was then placed and the knee was brought into full extension and held there until the cement cured. The patella was cemented and clamped. Dilute Betadine solution was then allowed to irrigate the knee while the cement cured. Once the cement was fully cured, the tourniquet was let down and meticulous hemostasis was ensured. The wound was irrigated out with copious amounts normal saline. The knee was brought through a full range of motion and we are very happy with the patella tracking and the stability. Therefore, the trial tibial polyethylene was removed and the real size 3 polyethylene 10 mm thickness was placed. We then began to close. Interrupted 0 Vicryl suture was used to repair the patellar retinaculum in fi [id number] fashion. The quadriceps and patellar tendons were run with #1 Ethibond. The deep dermal layer was closed with interrupted 2-0 Vicryl. Zipline was used for the skin. A compressive dressing was placed. Patient's sedation was lifted and was transferred to recovery room in stable condition. Summary of implants: Depuy Sigma Posterior Stabilized Cemented Femur, size 4 Tibia all-polyethylene implant, 10 mm thickness, size 3 Oval come patella, size 38 mm 2 batches of simplex bone cement Postoperative course: Patient will be admitted to the floor for pain control and monitoring. Weightbearing as tolerated with no knee range of motion for 48 hours. Aspirin for DVT prophylaxis. I attest to the content of the Intraoperative Record and any orders documented therein. Any exceptions are noted below.
[2020-07-06] MEDS ORDERED: HYDROmorphone INJ 0.5 MG/0.5 ML SYR IV PRN (09:47)
[2020-07-06] MEDS ORDERED: ACETAMINOPHEN 500 MG TAB PO PRN (09:51)
--- NOTE | 2020-07-06 10:16 | XRay Report ---
XR knee LT 1 or 2V routine HISTORY: 85 years-old Female Surgical Post Op left knee total joint arthroplasty COMPARISON: Left knee radiographs 04/11/2020 TECHNIQUE: 2 views of the left knee FINDINGS: Left knee total joint arthroplasty and patella resurfacing. Expected postsurgical soft tissue swellin g and deep tissue air. No acute fracture unexpected opaque foreign body. Satisfactory alignment. Daniela rial calcifications. IMPRESSION: Left knee total joint arthroplasty with expected postoperative changes. ACT 112: Negative or not required by law. The above report was generated using voice recognition software. It may contain grammatical, syntax o r spelling errors. Electronically signed by: Aris Hilton M.D. 07/06/2020 10:14 AM
--- NOTE | 2020-07-06 12:38 | Anesthesiology Progress Note ---
Date of Service July 06, 2020 Anesthesia Post Procedure Vital Signs Vital Signs: Temp Pulse Pulse Resp BP Pulse Ox 07/06/20 12:30 78 17 156/75 H 96 07/06/20 12:15 36.4 C L 77 20 136/88 97 07/06/20 12:05 74 19 141/85 H 98 07/06/20 11:55 90 24 153/77 H 98 07/06/20 11:45 84 15 145/85 H 95 07/06/20 11:35 36.7 C 80 19 154/85 H 98 07/06/20 11:25 71 21 140/84 98 07/06/20 11:15 65 12 133/87 97 07/06/20 11:05 70 18 124/54 L 97 07/06/20 10:55 69 15 136/75 99 07/06/20 10:45 68 19 134/79 98 07/06/20 10:35 36.6 C 75 16 128/62 97 07/06/20 10:25 72 12 131/74 96 07/06/20 10:15 68 23 136/68 98 07/06/20 10:05 72 18 125/57 L 97 07/06/20 09:55 82 19 125/79 98 07/06/20 09:46 36.3 C L 76 17 106/72 100 07/06/20 06:15 72 20 158/90 H 99 07/06/20 05:40 36.5 C 85 20 171/100 H 99 Pain Intensity Left Knee: Pain Intensity: 0 Transfer of Care Handoff Completed per policy Notes Mental Status: alert / awake / arousable and participated in evaluation Nausea / Vomiting: adequately controlled Pain: adequately controlled Airway Patency, RR, SpO2: stable & adequate BP & HR: stable & adequate Hydration State: stable & adequate Neuraxial Anesthesia: was administered and sensory block is resolving Anesthetic Complications: no major complications apparent and Pt Satisfied with anesthetic care
[2020-07-06] MEDS ORDERED: INFLUENZA ADMINISTRATION CHARGE ONE (13:04)
[2020-07-06] MEDS ORDERED: INFLUENZA VIRUS QUAD VACCINE 0.5 ML SYR IM ONE (13:04)
[2020-07-06] MEDS: SODIUM CHLORIDE 0.9% 1000ML 1,000 ML IV SCH ×2 (13:26→23:57)
[2020-07-06] MEDS ORDERED: Nursing to Pharmacy Communication SCH (13:30)
[2020-07-06] MEDS ORDERED: ORTHO WARFARIN NOMOGRAM SCH (14:00)
[2020-07-06] MEDS: lisinopril 10 MG TAB PO SCH (14:50)
[2020-07-06] MEDS: ceFAZolin 2000MG 2,000 MG/15 ML SYR IV SCH ×2 (14:50→21:45)
[2020-07-06] MEDS: ACETAMINOPHEN 500 MG TAB PO SCH ×2 (14:51→21:45)
[2020-07-06] MEDS: KETOROLAC TROMETHAMINE 15 MG/ML VIAL IV SCH ×2 (14:52→20:37)
[2020-07-06] MEDS ORDERED: COUGH DROP (SUGAR FREE) LOZ 24 LOZ/1 BOX BUCCAL PRN (15:50)
[2020-07-06] MEDS ORDERED: WARFARIN SOD 5 MG TAB PO SCH (16:00)
[2020-07-06] MEDS ORDERED: Scopolamine CHECK PATCH PLACEMENT SCH (16:00)
[2020-07-06] MEDS ORDERED: WARFARIN SOD 5 MG TAB PO ONE (16:00)
[2020-07-06] MEDS: METOCLOPRAMIDE HCL 5 MG TABLET PO SCH (20:34)
[2020-07-06] MEDS: DOCUSATE SODIUM 100 MG CAP PO SCH (20:37)
[2020-07-06] MEDS ORDERED: PRAVASTATIN SOD 40 MG TAB PO SCH (21:00)
[2020-07-06] MEDS ORDERED: SENNA 8.6 MG TAB PO SCH (21:00)
[2020-07-06] MEDS ORDERED: METOPROLOL TARTRATE 50 MG TAB PO SCH (21:00)
[2020-07-06] MEDS ORDERED: ADVANCED PROBIOTIC 1250 MG CAPSULE PO SCH (21:00)
[2020-07-07] MEDS: KETOROLAC TROMETHAMINE 15 MG/ML VIAL IV SCH ×2 (02:50→08:43)
[2020-07-07] MEDS: ACETAMINOPHEN 500 MG TAB PO SCH (05:57)
[2020-07-07 05:58] LABS: Hematocrit (blood only) 30.8 % (37-47); Hemoglobin 9.8 g/dL (12.0-16.0); Mean Corpuscular Hemoglobin 29.4 pg (25-34); Mean Corpuscular Hgb Conc 31.8 g/dL (32-36); Mean Corpuscular Volume 92.5 fL (80-100); Mean Platelet Volume 9.7 fL (7.4-10.4); Platelet Count 223 K/uL (130-400); RDW Coefficient of Variation 15.1 % (11.5-14.5); RDW Standard Deviation 50.8 fL (36.4-46.3); Red Blood Count 3.33 M/uL (4.2-5.4); White Blood Count 13.17 K/uL (4.8-10.8)
[2020-07-07 06:20] LABS: INR 1.1 (0.9-1.1); Prothrombin Time 11.9 Seconds (9.0-12.0)
[2020-07-07 06:30] LABS: BUN Creatinine Ratio 26.3 (10-20); Creatinine Clr Calc Pharmacy 39.7 ml/min; Est GFR (African American) 56.5; Est GFR (Non-African American) 48.7; Potassium 4.5 mmol/L (3.5-5.1)
[2020-07-07] MEDS ORDERED: LEVOTHYROXINE SODIUM 50 MCG TABLET PO SCH (06:30)
[2020-07-07] MEDS ORDERED: dexAMETHasone 4 MG TAB PO SCH (08:00)
[2020-07-07] MEDS: METOCLOPRAMIDE HCL 5 MG TABLET PO SCH (08:41)
[2020-07-07] MEDS: DOCUSATE SODIUM 100 MG CAP PO SCH (08:42)
[2020-07-07] MEDS ORDERED: METOPROLOL TARTRATE 25 MG TAB PO SCH (09:00)
[2020-07-07] MEDS ORDERED: MULTIVITAMIN TAB PO SCH (09:00)
[2020-07-07] MEDS ORDERED: ASPIRIN 81 MG ECTAB PO SCH (09:00)
[2020-07-07] MEDS ORDERED: PANTOprazole 40 MG TAB PO SCH (09:00)
[2020-07-07] MEDS ORDERED: POTASSIUM CHLORIDE 20 MEQ TABCR PO SCH (09:00)
[2020-07-07] MEDS ORDERED: hydroCHLOROthiazide 25 MG TAB PO SCH (09:00)
--- NOTE | 2020-07-07 10:52 | Orthopedic Progress Note ---
Date of Service July 07, 2020 Assessment & Plan (1) S/P total knee replacement using cement: Weightbearing as tolerated with immobilizer and walker assistance. Immobilizer use for the first 48 hours postoperatively PT/OT Keep Silverlon dressing in place until 2-week follow-up DVT prophylaxis with NADYA stockings and Coumadin INR checks twice weekly for 6 weeks with goal INR of 1.8-2.2 Ice with EZ WRAP Pain control with p.o. meds Plan on discharge home today with in-home therapy Follow-up with [facility] orthopedics in 2 weeks as you were previously scheduled With questions call [phone] Admission and Anticipated Discharge Date Admission Date: July 06, 2020 Subjective This 85-year-old female seen today, 1 day following a left total knee arthroplasty. Patient states she is doing very well. She states she had physical therapy and occupational therapy this morning, and was able to do all activities without difficulty. Currently she is sitting in the bedside chair with her immobilizer in place and with ice over her knee. She states that her pain has been well managed with the p.o. pain medication. Currently she denies chest pain, shortness of breath, fever, chills, sweats, nausea, vomiting, numbness or tingling in the left lower extremity or lethargy. She states that she is ready to be discharged home after lunch today. She states that her sister is going to help her for the next few weeks, and she plans on having in- home therapy work with her on range of motion and strengthening of the left lower extremity. Review of Systems Review of Systems: All systems reviewed & are unremarkable except as noted in Subjective Physical Exam Physical Exam: Left knee: Patient is able to perform a straight leg raise test without difficulty. She is able to flex her knee to 90 degrees without pain. Her dressing was clean dry and intact. I remove the dressing and there is scant amount of bloody drainage on the ABD pads. Zipper was in place with no palpable fluctuance or active drainage. A Silverlon dressing was applied over the zipper and patient is to keep this in place until her 2-week postoperative follow-up visit. Patient is able to actively dorsi and plantarflex her foot without difficulty. Her calf is soft and supple nontender to palpation. Her peripheral pulses were 2+. Her capillary refill is less than 2 seconds. Patient was neurovascularly intact in left lower extremity and she was easily able to transition from seated to a standing position. Results & Data ([facility]) Vital Signs (Past 12 Hours) Vital Signs Temp Pulse Resp BP Pulse Ox 07/07/20 07:30 36.5 C 77 16 136/57 L 95 07/07/20 04:06 36.2 C L 80 16 105/61 97 Laboratory Results 07/07/20 07/07/20 07/07/20 Range/Units 05:21 05:21 05:21 WBC 13.17 H (4.8-10.8) K/uL RBC 3.33 L (4.2-5.4) M/uL Hgb 9.8 L (12.0-16.0) g/dL Hct 30.8 L (37-47) % MCV 92.5 (80-100) fL MCH 29.4 (25-34) pg MCHC 31.8 L (32-36) g/dL RDW Std Deviation 50.8 H (36.4-46.3) fL RDW Coeff of Charlene 15.1 H (11.5-14.5) % Plt Count 223 (130-400) K/uL MPV 9.7 (7.4-10.4) fL PT 11.9 (9.0-12.0) Seconds INR 1.1 (0.9-1.1) Sodium 137 (136-145) mmol/L Potassium 4.5 (3.5-5.1) mmol/L Chloride 105 (98-107) mmol/L Carbon Dioxide 24 (21-32) mmol/L Anion Gap 8.0 (3-11) BUN 28 H (7-18) mg/dl Creatinine 1.05 (0.6-1.2) mg/dl Est Cr Clr Drug Dosing 39.7 ml/min Est GFR ( Amer) 56.5 Est GFR (Non-Af Amer) 48.7 BUN/Creatinine Ratio 26.3 H (10-20) Glucose 129 H (70-99) mg/dl Calcium 8.0 L (8.5-10.1) mg/dl
--- NOTE | 2020-07-07 10:53 | Discharge Summary ---
Date of Service July 07, 2020 Admission HPI Per Admitting Provider History of Present Illness Chief Complaint: Chief Complaint: Left knee pain Primary Care Provider: Sharmaine Kelly MD History of Present Illness (including history relevant to procedure): HPI this 85-year-old female presents the clinic today for her preoperative history and physical. Patient complains of a 2-year history of medial sided knee pain that is become persistent. She is failed conservative treatment with icing, injections, physical therapy, home exercise regimens, use of extra strength Tylenol and stretching. Patient is not able to take anti-inflammatory agents because of her atrial fibrillation. Past Medical History: Problems: Osteoarthritis of left knee Afib Pre-op evaluation Decubitus ulcer of sacral region, stage 2 Accidental fall Acute knee pain Chronic constipation Bright red rectal bleeding Mastalgia Cutaneous wart Acute sciatica Candidal vaginitis Hypothyroidism Stroke/cerebrovascular accident Hyperlipidemia Hypertension Atrial fibrillation Diabetes Arthritis Gastroparesis Procedure History Procedure Procedure Date Comments Appendectomy Total hysterectomy History of tonsillectomy Discectomy Mammogram 02/11/2019 - IMPRESSIN: ACR BI-RADS CATEGORY 2: BENIGNThere is no mammographic evidence of malignancy. A 1 year screening mammogram is recommended. (02/12/2020) The patient will receive written notification of the results. [facility]. Left basilar opacities suggest atelectasis2.. Cardiomegaly without overt pulmonary edema [facility] 1 injuries of the brachialis, biceps brachii, and triceps muscles2. Low grade tear of the common extensor tendons X-ray of right [facility]. Moderate patellofemoral arthritic change2. No acute fractures CT of head [facility] No acute intracranial findings2. Old bilateral frontal lobe infarcts3. Acute nasal bone fractures4. Frontal scalp hematoma CT of face [facility]. Acute nasal bone fractures2. Smal frontal scalp hematoma MRI of brain without contrast [facility] No acute intracranial findings2. No evidence of acute intracranial hemorrhage3. Old bilateral frontal lobe infarcts and moderate to extensive white matter disease likely on a small vessel ischemic basis4. No evidence of intracranial mass5. No evidence of acute or subacute infarction6. Frontal scalp hematoma CT scan - whole body 09/19/2018 - no acute intracranial findingsno evidence of acute intracranial hemorrhageold bilateral frontal lobe infarcts and moderate to extensive white matter discease likely on a small vessel ischemic basis. Eye examination 09/15/2018 - No evidence of retinopathy. [facility] ACR BI-RADS CATEGORY 1: NEGATIVENo evidence of malignancy Eye examination 08/19/2017 - No evidence of retinopathy. Fingers X-ray 04/04/2017 - 1. Mild soft tissue swelling of the distal first digit without acute bony abnormality or radiopaque foreign body.2. Severe first digit interphlangeal and moderate carpometacarpal osteoarthritis. Mammogram 12/20/2016 - No mammographic evidence of malignancy. Colonoscopy 09/18/2016 - Pathology results: A) Rectum, plypectomy: nonspecific benign polyp B) Distal rectum, biopsy: benign rectal mucosa with specific abnormality. See comment. Comment: The rectal biopsy shows unremarkable architecture. There is no acute colitis. I do not see features of lymphocytic colitis or collagenous colitis. No granuloma are noted. I do not see clear evidence of colitis or any specific process. There is no evidence of a neoplasm. - One 3 mm polyp in the rectum , removed with a cold biopsy forceps, resected and retrieved. Congested mucosa in the distal rectum, biopsied. Non-bleeding internal hemorrhoids. the examination otherwise normal. The examined portion of the ileum was normal. [facility] Bone density scan 06/20/2016 - T-scores : spine 1.5; L femur neck -1.9; R femur neck -1.5; total femur - 1.6; forearm -0.7; significantly improved from 04/17. - T-Score -2.3 Mammogram 12/19/2015 - There is no mammographic evidence of malignancy. A 1 year screening is recommended. Dilated retinal eye exam with interpretation by an tunnel worker or visual developer documented and reviewed (DM) 07/13/2015 - no retinopathy Mammogram 12/15/2014 - there is no mammographic evidence of malignancy. a 1 yr screen mamogram is recommeneded Mammogram 11/19/2013 - No evidence of malignancy. One year screening recommended. Holter monitor 09/03/2013 - Afib with controlled ventricular response rate. Average rate 80. Couple episodes of high rate episodes but not sustained. Rare PVC's. Eye examination 06/29/2013 - No diabetic retinopathy Coronary angiography 03/19/2013 - normal Dual energy X-ray absorptiometry (DEXA) scan T score 04/30/2010 - osteopenia at hip & forearm, spine normal Shoulder X-ray 04/13/2010 - Moderate degenerative changes and ostopenia.Downsloping acromion. CT scan of head 08/21/2009 - Actue/subacute ischemic infarct in left frontal lobe involving vascular territory of MCA without evidence of acute intracranial hemorrhage. Chronic right frontal lobe infarct.Periventricular and subcortical white matter hypodensities present which is nonspecific, commonly associated with chronic small vessel ischemic disease. CT of head 09/01/2008 - No acute intracranial findings. CT of brain 08/25/2008 - Very mild increase in size of posterior right frontal infarct.Secondary to normal evalution of infarct rather than true acute extension of structure.Mild chronic small vessel change.No evidence for actue intracranial abnormality. Chest x-ray 08/25/2008 - No acute process X-ray of abdomen 08/25/2008 - Mild ileus.No evidence for obstructive change at this time. CT of abdomen and pelvis 08/21/2008 - Abnormal mass in left rectus abdominis region of abdominal wall suggestion probable hematoma with active extravasation.No acute intraabdominal or intrapelvic process suspected. 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 CT of chest and abdomen 02/26/2008 - Mild atherosclerotic change of thoracic and abdominal aorta.No evidence for aneurysm or dissection.Remainder of study neg. US abdominal scan 02/26/2008 - Limited evidence of pancreas due to overlying bowel content.Eval of abdomen and abdominal aorta otherwise neg.No evidence for focal aneurysm. CT of head 03/10/2007 - No evidence of intracranial hemorrhage or mass effect.Focal encephalomalacic changes in right frontoparietal region suggestion chronic or subacute ischemic infarct.Decrease white matter attenuation suggestion chronic small vessel ischemic disease. Colonoscopy 03/25/2005 Breast reduction 09/08/1989 Allergies and Sensitivities: sulfa drugs Zocor(LFT elevation) Allergy Not found in Search Augmentin(diarrhea) sertraline(dizzy) venlafaxine(dizzy) methyldopa dipyridamole Social history: Patient denies tobacco or illicit drug use. She states she occasionally consumes an alcoholic beverage. Family history: Cancer, heart disease, diabetes, hypertension and stroke Current Home Meds: (Last Updated 04/11 12:48) (Tylenol Arthritis Extended Release) 1,300 mg PO q8h(aspirin 81 mg oral tablet) 81 mg PO Dailycarbonate (calcium (as carbonate) 600 mg oral tablet) 600 mg PO bidtopical (Voltaren 1% topical gel) 1 appl topical qid PRN: Pain 4g to affected area 4 times a day(hydroCHLOROthiazide 12.5 mg oral tablet) TAKE 1 TABLET EVERY DAY(levothyroxine 50 mcg (0.05 mg) oral tablet) TAKE 1 TABLET EVERY DAY(lisinopril 10 mg oral tablet) TAKE 1 TABLET EVERY DAY(metoclopramide 5 mg oral tablet) TAKE 1 TABLET TWICE DAILY(metoprolol tartrate 25 mg oral tablet) 3 tab PO in AM, 2 tab PO in evening; 90 day(omeprazole 20 mg oral delayed release capsule) TAKE 1 CAPSULE EVERY DAYchloride (potassium chloride 20 mEq oral tablet, extended release) TAKE 1 TABLET EVERY DAY(pravastatin 40 mg oral tablet) 40 mg PO Dailymedication (POTASSIUM CHLORIDE ER 20 MEQ Tablet Extended Release) TAKE 1 TABLET EVERY DAY(warfarin 5 mg oral tablet) take 1 tablet by mouth daily ON FRI,FRI,,FRI and 1/2 tablet by mouth ON AND FRI Allergies Allergy/AdvReac Type Severity Reaction Status Date / Time [id number]-[id number]-[id number] Reductase Allergy Intermediate MUSCLE PAIN Verified 04/06/20 09:11 Inhibitor dipyridamole Allergy Mild Unknown Verified 04/06/20 09:11 sertraline Allergy Mild Rash Verified 04/06/20 09:11 Sulfa (Sulfonamide Allergy Mild RASH Verified 04/06/20 09:11 Antibiotics) venlafaxine Allergy Mild Rash Verified 04/06/20 09:11 benzethonium chloride Allergy Unknown Rash Verified 04/06/20 09:11 [From Lanacane Copan] benzocaine Allergy Unknown Rash Verified 04/06/20 09:11 [From Lanacane Copan] methyldopa Allergy Unknown Unknown Verified 04/06/20 09:11 WOOL Allergy Intermediate ITCHING, Uncoded 04/06/20 09:11 RASH Home Medications Home Medications Medication Instructions Recorded Confirmed Type aspirin [Aspir-81] 81 mg PO QAM 07/31/18 04/06/20 History hydrochlorothiazide 12.5 mg PO QAM 07/31/18 04/06/20 History levothyroxine 50 mcg PO QAM 07/31/18 04/06/20 History lisinopril 10 mg PO QAM 07/31/18 04/06/20 History metoclopramide HCl 5 mg PO BID 07/31/18 04/06/20 History metoprolol tartrate 50 mg PO HS 07/31/18 04/06/20 History metoprolol tartrate 75 mg PO QAM 07/31/18 04/06/20 History potassium chloride 20 meq PO QAM 07/31/18 04/06/20 History pravastatin 40 mg PO HS 07/31/18 04/06/20 History warfarin 2.5 mg PO 2XWK 07/31/18 04/06/20 History warfarin 5 mg PO 3XWK 07/31/18 04/06/20 History Probiotic 0 mmu cells PO QPM 09/19/18 04/06/20 History omeprazole 20 mg PO QAM 12/03/19 04/06/20 History acetaminophen [Tylenol Extra 1,000 mg PO Q6H PRN 04/06/20 04/06/20 History Strength] calcium carbonate-vitamin D3 1 cap PO QAM 04/06/20 04/06/20 History [Calcium 600 + D(3)] Past Med/Surg History Medical History Arthritis Atrial fibrillation (Chronic) FOLLOWS WITH DR. FLORES, on Coumadin. Borderline diabetes DIET MANAGED Constipation CVA (cerebral vascular accident) ~ 2014. No long-term deficits, on ASA 81mg. GERD (gastroesophageal reflux disease) Hypercholesterolemia Hypertension (Chronic) Hypothyroidism SOBOE (shortness of breath on exertion) Spinal stenosis Surgical History Family history of reaction to anesthesia BROTHER-NAUSEA/VOMITTING History of appendectomy History of cardiac catheterization X 3 (NO STENTS PLACED). Normal coronaries on last cath [address] Flores. History of colonoscopy History of discectomy LUMBAR History of tonsillectomy and adenoidectomy History of tooth extraction Hx of hysterectomy Family History Mother Diabetes Sister Family hx of colon cancer Father Diabetes Other Cervical malignancy GI malignancy Heart disease Liver malignancy Social History Smoking Status: Never smoker Second Hand Exposure: Yes (MOTHER SMOKED/SPOUSE YRS AGO); Hx Alcohol Use: No Hx Substance Use: No Preferred Language: Ivorian Communication Ability: Effective Broker Required: No Beliefs That Will Affect Care: None marital status: Current Living Situation: Alone current occupational status: retired Feels Safe at Home: Yes Review of Systems All systems reviewed & are unremarkable except as noted in HPI & below Results & Data Laboratory Results Lab Results 04/11/20 04/11/20 04/11/20 Range/Units 15:12 15:17 15:17 WBC 5.35 (4.8-10.8) K/uL RBC 4.28 (4.2-5.4) M/uL Hgb 12.5 (12.0-16.0) g/dL Hct 39.3 (37-47) % MCV 91.8 (80-100) fL MCH 29.2 (25-34) pg MCHC 31.8 L (32-36) g/dL RDW Std Deviation 50.0 H (36.4-46.3) fL RDW Coeff of Charlene 14.8 H (11.5-14.5) % Plt Count 256 (130-400) K/uL MPV 9.5 (7.4-10.4) fL Immature Gran % (Auto) 0.2 % Neut % (Auto) 59.5 % Lymph % (Auto) 27.9 % [place] % (Auto) 10.7 % Eos % (Auto) 1.5 % Baso % (Auto) 0.2 % Neut # (Auto) 3.19 (1.4-6.5) K/uL Lymph # (Auto) 1.49 (1.2-3.4) K/uL [place] # (Auto) 0.57 (0.11-0.59) K/uL Eos # (Auto) 0.08 (0-0.5) K/uL Baso # (Auto) 0.01 (0-0.2) K/uL Immature Gran # (Auto) 0.01 (0.00-0.02) K/uL PT (9.0-12.0) Seconds INR (0.9-1.1) Sodium 138 (136-145) mmol/L Potassium 4.9 (3.5-5.1) mmol/L Chloride 103 (98-107) mmol/L Carbon Dioxide 27 (21-32) mmol/L Anion Gap 8.0 (3-11) BUN 20 H (7-18) mg/dl Creatinine 0.80 (0.6-1.2) mg/dl Est Cr Clr Drug Dosing 52.2 ml/min Est GFR ( Amer) 78.5 Est GFR (Non-Af Amer) 67.7 BUN/Creatinine Ratio 24.8 H (10-20) Glucose 91 (70-99) mg/dl Estimat Average Glucose mg/dl Hemoglobin A1c (4.5-5.6) % Calcium 9.7 (8.5-10.1) mg/dl Urine Color Urine Appearance (Clear) Urine pH (4.5-7.5) Ur Specific [place] (1.000-1.030) Urine Protein (Negative) Urine Glucose (UA) (Negative) Urine Ketones (Negative) Urine Blood (Negative) Urine Nitrite (Negative) Urine Bilirubin (Negative) Urine Urobilinogen (Negative) Ur Leukocyte Esterase (Negative) Urine WBC (Auto) (0-5) /hpf Urine RBC (Auto) (0-4) /hpf U Hyaline Cast (Auto) (0-5) /lpf U Epithel Cells (Auto) (0-5) /lpf Urine Bacteria (Auto) (Negative) Nasal Screen MRSA (PCR) (Negative) Blood Type A Positive Antibody Screen NEGATIVE 04/11/20 04/11/20 04/11/20 Range/Units 15:17 15:17 15:17 WBC (4.8-10.8) K/uL RBC (4.2-5.4) M/uL Hgb (12.0-16.0) g/dL Hct (37-47) % MCV (80-100) fL MCH (25-34) pg MCHC (32-36) g/dL RDW Std Deviation (36.4-46.3) fL RDW Coeff of Charlene (11.5-14.5) % Plt Count (130-400) K/uL MPV (7.4-10.4) fL Immature Gran % (Auto) % Neut % (Auto) % Lymph % (Auto) % [place] % (Auto) % Eos % (Auto) % Baso % (Auto) % Neut # (Auto) (1.4-6.5) K/uL Lymph # (Auto) (1.2-3.4) K/uL [place] # (Auto) (0.11-0.59) K/uL Eos # (Auto) (0-0.5) K/uL Baso # (Auto) (0-0.2) K/uL Immature Gran # (Auto) (0.00-0.02) K/uL PT 26.9 H (9.0-12.0) Seconds INR 2.7 H (0.9-1.1) Sodium (136-145) mmol/L Potassium (3.5-5.1) mmol/L Chloride (98-107) mmol/L Carbon Dioxide (21-32) mmol/L Anion Gap (3-11) BUN (7-18) mg/dl Creatinine (0.6-1.2) mg/dl Est Cr Clr Drug Dosing ml/min Est GFR ( Amer) Est GFR (Non-Af Amer) BUN/Creatinine Ratio (10-20) Glucose (70-99) mg/dl Estimat Average Glucose 128 mg/dl Hemoglobin A1c 6.1 H (4.5-5.6) % Calcium (8.5-10.1) mg/dl Urine Color Yellow Urine Appearance Clear (Clear) Urine pH 7.5 (4.5-7.5) Ur Specific [place] 1.010 (1.000-1.030) Urine Protein Negative (Negative) Urine Glucose (UA) Negative (Negative) Urine Ketones Negative (Negative) Urine Blood Negative (Negative) Urine Nitrite Negative (Negative) Urine Bilirubin Negative (Negative) Urine Urobilinogen Negative (Negative) Ur Leukocyte Esterase Trace H (Negative) Urine WBC (Auto) 1-5 (0-5) /hpf Urine RBC (Auto) 0-4 (0-4) /hpf U Hyaline Cast (Auto) 0 (0-5) /lpf U Epithel Cells (Auto) 5-10 H (0-5) /lpf Urine Bacteria (Auto) Negative (Negative) Nasal Screen MRSA (PCR) (Negative) Blood Type Antibody Screen 04/11/20 Range/Units 15:20 WBC (4.8-10.8) K/uL RBC (4.2-5.4) M/uL Hgb (12.0-16.0) g/dL Hct (37-47) % MCV (80-100) fL MCH (25-34) pg MCHC (32-36) g/dL RDW Std Deviation (36.4-46.3) fL RDW Coeff of Charlene (11.5-14.5) % Plt Count (130-400) K/uL MPV (7.4-10.4) fL Immature Gran % (Auto) % Neut % (Auto) % Lymph % (Auto) % [place] % (Auto) % Eos % (Auto) % Baso % (Auto) % Neut # (Auto) (1.4-6.5) K/uL Lymph # (Auto) (1.2-3.4) K/uL [place] # (Auto) (0.11-0.59) K/uL Eos # (Auto) (0-0.5) K/uL Baso # (Auto) (0-0.2) K/uL Immature Gran # (Auto) (0.00-0.02) K/uL PT (9.0-12.0) Seconds INR (0.9-1.1) Sodium (136-145) mmol/L Potassium (3.5-5.1) mmol/L Chloride (98-107) mmol/L Carbon Dioxide (21-32) mmol/L Anion Gap (3-11) BUN (7-18) mg/dl Creatinine (0.6-1.2) mg/dl Est Cr Clr Drug Dosing ml/min Est GFR ( Amer) Est GFR (Non-Af Amer) BUN/Creatinine Ratio (10-20) Glucose (70-99) mg/dl Estimat Average Glucose mg/dl Hemoglobin A1c (4.5-5.6) % Calcium (8.5-10.1) mg/dl Urine Color Urine Appearance (Clear) Urine pH (4.5-7.5) Ur Specific [place] (1.000-1.030) Urine Protein (Negative) Urine Glucose (UA) (Negative) Urine Ketones (Negative) Urine Blood (Negative) Urine Nitrite (Negative) Urine Bilirubin (Negative) Urine Urobilinogen (Negative) Ur Leukocyte Esterase (Negative) Urine WBC (Auto) (0-5) /hpf Urine RBC (Auto) (0-4) /hpf U Hyaline Cast (Auto) (0-5) /lpf U Epithel Cells (Auto) (0-5) /lpf Urine Bacteria (Auto) (Negative) Nasal Screen MRSA (PCR) Negative (Negative) Blood Type Antibody Screen Diagnostic Findings Studies (relevant to the procedure): X-rays: Show continued erosion of the proximal medial tibia with a obvious depression of the subchondral bone. Admission Exam Per Admitting Provider Physical Exam: Physical Exam: (relevant to the procedure, including heart and lung evaluation) General: Alert and oriented x3 with proper grooming and hygiene Eyes: Pupils are equal and reactive to light with accommodation. Extraocular movements are intact Cardiac: Irregularly irregular rate and rhythm with no murmurs or gallops appreciated Lungs: Clear to auscultation throughout with no wheezing, rales or rhonchi Abdomen: Nonobese, nondistended, nontender with normal active bowel sounds Extremities: Left knee exam shows the patient's range of motion to be from 0-120 degrees today. She has a medial more than lateral joint line tenderness. Mild peripatellar tenderness. She has a 1+ effusion. Neuro: Cranial nerves II through XII are intact with no motor or sensory deficit Skin: Normal in appearance no open skin areas or discharge Principal Diagnosis Left knee osteoarthritis Discharge Exam Left knee: Patient is able to perform a straight leg raise test without diffic ulty. She is able to flex her knee to 90 degrees without pain. Her dressing was clean dry and intact. I remove the dressing and there is scant amount of bloody drainage on the ABD pads. Zipper was in place with no palpable fluctuance or active drainage. A Silverlon dressing was applied over the zipper and patient is to keep this in place until her 2-week postoperative follow-up visit. Patient is able to actively dorsi and plantarflex her foot without difficulty. Her calf is soft and supple nontender to palpation. Her peripheral pulses were 2+. Her capillary refill is less than 2 seconds. Patient was neurovascularly intact in left lower extremity and she was easily able to transition from seated to a standing position. Discharge Data Allergies Allergy/AdvReac Type Severity Reaction Status Date / Time benzethonium chloride Allergy Intermediate Rash Verified 07/06/20 05:38 [From Lanacane Copan] benzocaine Allergy Intermediate Rash Verified 07/06/20 05:38 [From Lanacane Copan] Xacceqq-Rkp-Jyc Reductase Allergy Intermediate MUSCLE PAIN Verified 07/06/20 05:38 Inhibitor wool Allergy Intermediate Rash and Verified 07/06/20 05:38 Itching dipyridamole Allergy Mild Unknown Verified 07/06/20 05:38 sertraline Allergy Mild Rash Verified 07/06/20 05:38 Sulfa (Sulfonamide Allergy Mild RASH Verified 07/06/20 05:38 Antibiotics) venlafaxine Allergy Mild Rash Verified 07/06/20 05:38 methyldopa Allergy Unknown Unknown Verified 07/06/20 05:38 Consultations 07/06/20 09:42 Consult Case Management - Discharge Planning Routine Procedures Performed Operation Date: 07/06/20 07:15 Actual Procedures p Left Total Knee Arthroplasty(Left) - Godfrey Sam MD Ordered Studies 07/06/20 05:00 US - OR guided needle placemen Routine Hospital Course (1) S/P total knee replacement using cement: Patient's overnight stay was essentially unremarkable, except she states that after having a dose of Benadryl last evening she became slightly disoriented, and almost tripped over her foot pump cords while attempting to go to the bathroom. Patient states that she feels it was a combination of the anesthesia medication, the p.o. pain medication and the use of Benadryl. Today she is doing very well, and had no difficulty performing tasks with PT or OT. Patient wishes to be discharged home and will do in-home therapy with [facility]. She states her sister is planning on staying with her for the first 2 weeks postoperatively to provide her assistance. Weightbearing as tolerated with immobilizer and walker assistance. Immobilizer use for the first 48 hours postoperatively PT/OT Keep Silverlon dressing in place until 2-week follow-up DVT prophylaxis with NADYA stockings and Coumadin INR checks twice weekly for 6 weeks with goal INR of 1.8-2.2 Ice with EZ WRAP Pain control with p.o. meds Plan on discharge home today with in-home therapy Follow-up with [facility] orthopedics in 2 weeks as you were previously scheduled With questions call [phone] Total Time Total Time Spent Total Time Spent (In Minutes): 20 minutes Total Time Includes: Examination of the Patient, Discharge Planning and Medication Reconciliation Discharge Plan Discharge Items Patient Disposition: Home - Home Health Services Reason For Visit: Left Knee Osteoarthritis Discharge Diagnosis: Left knee osteoarthritis Activity: As commented below Lifting: None Bathing: Keep incision dry Bathing Comment: May shower tomorrow Sexual Activity: Wait until after follow-up appointment Exercise/Sports: Wait until after follow-up appointment Driving/Machine Use: No driving until cleared by fitness specialist Weightbearing: Left weightbearing Weightbearing Comment: as tolerated with immobilizer and walker Non-emergency contact: Primary Care Provider Call non-emergency contact if: you have any medication questions, your pain is not controlled, your temperature is above 101.5, your wound has increased drainage and your wound pain has increased Follow-up/Referrals: Sharamine Kelly MD [Primary Care Provider] - Diet: Regular Addtl Attending Provider Instructions: Post-operative Instructions Dear Patient and Family/Friends, Before you are discharged from the hospital, it is important to know what to expect when you get home after surgery. To that end, we have created this sheet of discharge instructions which covers many commonly asked questions. Make sure you go through this sheet in its entirety with your nurse before you are discharged. Please note that we will go over the specifics of your surgery and recovery when you return for your first post-operative visit. Sincerely, Dr. Sam Medications 1. Coumadin 2.5 mg: You will be discharged on 2.5 mg of Coumadin daily. We will check your INR on Friday07/10/20 and adjust your dosage accordingly. 2. Tramadol 50 mg: take 1 tab PO q 4-6 hours for pain control. This will be sent to your pharmacy. 3. Diclofenac Sodium 50 mg: take 1 tab twice daily for post op pain/inflammation control. This will be sent to your pharmacy. 4. Extra Strength Tylenol 500mg: take 2 tabs every 6-8 hours as needed for pain relief. Please purchase. Pain Expect to be in a fair amount of pain after surgery. Remember, our goal is not to eliminate your pain, but to make it tolerable. It is a good idea to stay ahead of your pain by taking the medications you were prescribed once you get home. Typically, the pain starts improving 3-7 days after surgery. You should start weaning off the narcotic pain medication (oxycodone, hydrocodone, hydromorphone, morphine) as soon as your pain improves. Please call our office if your pain is not adequately controlled. Ice Ice your operative site at least 5 times a day for 15-30 minutes at a time. Make sure you have a thin cloth between the ice or cooling unit and your skin to prevent pierre bite. This is especially important if you received a nerve block. Continue icing your operative site for the first 5-7 days after surgery, then as needed. Diet/Nausea/Vomiting Start by drinking clear liquids and eating crackers. If you can tolerate this, then you may resume your normal diet. If you feel nauseated or vomit, take Zofran/ondansetron (if prescribed). Please call our office if you have intractable nausea or vomiting, or, if after hours, you may go to the Emergency Room for help. Constipation Constipation is a common side effect of narcotic pain medication. If you have not had a bowel movement within 2 days after surgery, we recommend purchasing an over the counter laxative such as Milk of Magnesia, Dulcolax, or Miralax from a local pharmacy, and taking it as instructed. Call our clinic if any questions. Slings and Braces If you were placed in a sling or brace, it must be worn at all times, including sleep. You may remove your sling or brace for physical therapy, home exercises, and showering. The length of time you will be in your brace and range of motion restrictions depends on what surgery you had; these details will be reviewed at your first post-operative appointment. Nerve block The anesthesia team sometimes places a nerve block to help with post-operative pain control. This results in significant numbness and inability to move the extremity. The nerve block usually wears off in 8-12 hours, but sometimes can last up to 24 hours. Please call our office if you are still unable to move your extremity after 24 hours, unless you received a pain pump to take home. Nerve blocks typically wear off quickly, so start taking pain medication as soon as you start feeling soreness near your surgical site. Weight bearing and Range of Motion. Do not bear any weight through your operative extremity immediately after surgery. If you had upper extremity surgery, do not lift anything with that arm. If you are in a knee brace, keep it locked in place until your follow-up. We will discuss your weight bearing, range of motion, and lifting restrictions in detail at your first post-operative appointment. Continuous Passive Motion (CPM) Machine If you were prescribed a CPM machine, it will start after your first post- operative appointment, at which time we will give you instructions on the range of motion settings and duration of treatment Physical therapy You will be given a prescription for physical therapy or occupational therapy at your first post-operative appointment. Typically, patients start therapy within 1 week of surgery Wound care and showering We will inspect your wound at your first post-operative visit, and may do a dressing change at that time. Most patients will be in a water-proof dressing that is removed 14 days after surgery. It is normal to see some dried blood on the dressing. Do not remove your dressing, paper strips or sutures yourself unless you are given permission. Showering is allowed the day after surgery. Do not scrub or remove any dressings. The wound should not be submerged underwater (i.e. in a bathtub or pool) until 4 weeks after surgery NADYA stockings If you were given white stockings, these are to be worn at all times except to shower (on both legs) for the first 2 weeks after surgery. Driving You may not drive while taking narcotic pain medication or while in a cast, splint, sling or brace. You, the patient, need to make the final determination about when you are safe to drive, however, the earliest you may consider driving after surgery is below: Hand/Wrist/Elbow Surgery: 3 days Shoulder Surgery: 2 weeks Hip,/Knee/Ankle Surgery: 4 weeks Fracture repair: 6 weeks Return to Work Your return to work depends on what surgery was done and what type of work you do. Please bring any paperwork your employer needs completed to your first post-operative visit. Also, bring a description of your job duties, as this helps us to understand what risks you may face at work. Travel Avoid long distance travel (greater than 1 hour) in airplanes and cars for the first 6 weeks after surgery. If you must travel, you need to have a Doppler ultrasound done before you travel to rule out a blood clot in your legs. Follow-up You should have a follow-up appointment already scheduled 1-2 days after surgery. If not, please contact our office to make this appointment before you leave the hospital. When to call the office It is normal to have swelling and bruising in the limb that was operated on. This will improve with time. It is also normal to have fevers for the first 2 days after surgery. Reasons you should call your doctor include: Uncontrolled pain; Nausea, vomiting, or constipation that does not improve with medication; Fevers over 101.5, chills, sweats; Drainage or bleeding from the wound; Foul odor; Spreading areas of redness; Any other concerns Pending Studies at Discharge: No Stand-Alone Forms: My [facility] Medications and DC Order Prescriptions: New tramadol 50 mg tablet 50 mg PO Q6H MDD Max 6 tabs per day Qty: 30 RF: 0 diclofenac sodium 50 mg tablet,delayed release (DR/EC) 50 mg PO Q12H Qty: 60 RF: 1 Continued omeprazole 20 mg Tablet,Delayed Release (Dr/Ec) 20 mg PO QAM RF: 0 acetaminophen [Tylenol Extra Strength] 500 mg Tablet 1,000 mg PO Q6H PRN (Reason: Pain) RF: 0 pravastatin 40 mg tablet 40 mg PO HS RF: 0 potassium chloride 20 mEq tablet,ER particles/crystals 20 meq PO QAM RF: 0 metoclopramide HCl 5 mg tablet 5 mg PO BID RF: 0 levothyroxine 50 mcg tablet 50 mcg PO QAM RF: 0 lisinopril 10 mg tablet 10 mg PO 1200 RF: 0 metoprolol tartrate 25 mg tablet 75 mg PO QAM RF: 0 metoprolol tartrate 25 mg tablet 50 mg PO HS RF: 0 hydrochlorothiazide 12.5 mg tablet 12.5 mg PO QAM RF: 0 Probiotic 3 billion cell Capsule 0 mmu cells PO QPM RF: 0 aspirin 81 mg Tablet,Delayed Release (Dr/Ec) 81 mg PO QAM RF: 0 Lovenox RF: 0 Changed warfarin 5 mg tablet 2.5 mg PO DAILY Qty: 90 RF: 0 Discontinued warfarin 5 mg tablet 5 mg PO 3XWK RF: 0 Discharge Orders: Discharge Order (Routine); Ordered 07/07/20 Ordered By: Cb Ceron/Other Patient Handouts: A1C Admission Data Admit Date/Time: 07/06/20 09:42 Attending Provider: Godfrey Sam Admit Provider: Godfrey Sam Primary Care Provider: Sharmaine Kelly Other Providers: [facility] [place]
[2020-07-07] MEDS: lisinopril 10 MG TAB PO SCH (11:59)
[2020-07-08] MEDS ORDERED: WARFARIN SOD 2.5 MG TAB PO SCH (16:00)
== END 2020-07-07 13:56 | disposition home health service (06) ==
LOC: 3E 05:18 → ASU 05:18
DX: I48.20 Chronic atrial fibrillation, unspecified; Z86.73 Personal history of transient ischemic attack (TIA), and cerebral infarction without residual deficits; Z79.01 Long term (current) use of anticoagulants; Z79.899 Other long term (current) drug therapy; E03.9 Hypothyroidism, unspecified; M17.12 Unilateral primary osteoarthritis, left knee; E11.43 Type 2 diabetes mellitus with diabetic autonomic (poly)neuropathy; I10 Essential (primary) hypertension; Z79.890 Hormone replacement therapy; L89.152 Pressure ulcer of sacral region, stage 2; E78.5 Hyperlipidemia, unspecified; Z88.8 Allergy status to other drugs, medicaments and biological substances; Z88.2 Allergy status to sulfonamides; Z79.82 Long term (current) use of aspirin

== ENCOUNTER 2024-02-06 19:41 | Inpatient (IN) ==
[2024-02-06 20:59] LABS: Alanine Aminotransferase 13 U/L (7-52); Albumin Globulin Ratio 1.3 (0.9-2); Albumin Level 4.6 gm/dl (3.4-5.0); Alkaline Phosphatase 43 U/L (34-104); Anion Gap 10 (3-11); Aspartate Aminotransferase 23 U/L (13-39); BUN Creatinine Ratio 22.7 (10-20); Bilirubin,Total 1.4 mg/dl (0.2-1.0); Blood Urea Nitrogen 17 mg/dl (6-23); Calcium 9.9 mg/dl (8.6-10.3); Carbon Dioxide 26 mmol/L (21-32); Chloride 89 mmol/L (98-107); Est GFR (African American) 83.1 ml/min; Est GFR (Non-African American) 71.7 ml/min; Globulin 3.5 gm/dl (2.5-4.0); Glucose 106 mg/dl (70-99(Fasting)); Lipase 29 U/L (11-82); Potassium 4.2 mmol/L (3.5-5.1); Sodium 125 mmol/L (136-145); Total Protein 8.1 gm/dl (6.0-8.3)
[2024-02-06 21:17] LABS: Basophils # (auto) 0.02 K/uL (0.00-0.20); Basophils % (auto) 0.3 %; Eosinophils # (auto) 0.03 K/uL (0.00-0.50); Eosinophils % (auto) 0.5 %; Hematocrit (blood only) 35.9 % (37.0-47.0); Hemoglobin 11.6 g/dl (12.0-16.0); Immature Granulocytes # (auto) 0.03 K/uL (0.01-0.20); Immature Granulocytes % (auto) 0.5 %; Lymphocytes # (auto) 0.85 K/uL (1.20-3.40); Lymphocytes % (auto) 13.3 %; Mean Corpuscular Hemoglobin 26.8 pg (25.0-34.0); Mean Corpuscular Hgb Conc 32.3 g/dL (32.0-36.0); Mean Corpuscular Volume 82.9 fL (80.0-100.0); Mean Platelet Volume 9.6 fL (9.4-12.4); Monocytes # (auto) 0.69 K/uL (0.11-0.59); Monocytes % (auto) 10.8 %; Neutrophils # (auto) 4.78 K/uL (1.40-6.50); Neutrophils % (auto) 74.6 %; Platelet Count 288 K/uL (130-400); RDW Coefficient of Variation 14.6 % (11.5-14.5); RDW Standard Deviation 43.9 fL (36.4-46.3); Red Blood Count 4.33 M/uL (4.20-5.40)
--- NOTE | 2024-02-06 21:47 | CT Scan Report ---
Exam(s): CT ABDOMEN + PELVIS Without Contrast EXAM: CT Abdomen and Pelvis Without Intravenous Contrast CLINICAL HISTORY: Reason for exam: poss obstruc. TECHNIQUE: Axial computed tomography images of the abdomen and pelvis without intravenous contrast. CTDI is 18.96 mGy and DLP is 818.76 mGy-cm. Automated exposure control was utilized for the study. A dose lowering technique was utilized adhering to the principles of ALARA. COMPARISON: No relevant prior studies available. FINDINGS: Lung bases: Unremarkable. No mass. No consolidation. ABDOMEN: Liver: Unremarkable. Gallbladder and bile ducts: Unremarkable. No calcified stones. No ductal dilation. Pancreas: Unremarkable. No ductal dilation. Spleen: Unremarkable. No splenomegaly. Adrenals: Unremarkable. No mass. Kidneys and ureters: Atrophy/scarring in the RIGHT kidney. No hydronephrosis or obstructive uropathy. Stomach and bowel: Diverticulosis, without acute diverticulitis. No small bowel obstruction. No free intraperitoneal air. PELVIS: Appendix: No findings to suggest acute appendicitis. Bladder: Unremarkable. No stones. Reproductive: Hysterectomy. ABDOMEN and PELVIS: Intraperitoneal space: Unremarkable. No free air. No significant fluid collection. Bones/joints: Degenerative changes of the spine. No acute fracture. No dislocation. Soft tissues: Unremarkable. Vasculature: Atherosclerotic changes of the aorta. No abdominal aortic aneurysm. Lymph nodes: Unremarkable. No enlarged lymph nodes. IMPRESSION: 1. Atrophy/scarring in the RIGHT kidney. No hydronephrosis or obstructive uropathy. 2. Hysterectomy. 3. Diverticulosis, without acute diverticulitis. No small bowel obstruction. No free intraperitoneal air. Electronically signed by: Shay Hua MD 02/06/24 21:46 PM
--- NOTE | 2024-02-06 22:00 | Emergency Department Note ---
Impression & Plan Acute hyponatremia, Constipation, Nausea & vomiting ED Provider Note CHIEF COMPLAINT: Abdominal pain, vomiting HISTORY OF PRESENTING ILLNESS: This 88-year-old female patient presents to the emergency department with her sister and daughter for evaluation of abdominal pain and vomiting. The patient has been having issues with her bowel movements for the past week and has been following with her PCP. The patient was started on magnesium citrate and took her first dose at 1800 tonight. However, the patient started vomiting after the mag citrate. The patient felt like her stomach was very full all day today and wasn't really able to eat or drink much. Only got a small amount of the mag citrate down. The patient contacted her family doctor who was concerned for a possible bowel blockage and referred her to the ER. The patient states that she feels SOB, dizzy, and woozy and feels dehydrated. Has not really been eating or drinking much over the past couple of days because of the symptoms. Denies chest pain. Chronic lower back pain from spinal stenosis, but no recent changes. Denies any urinary symptoms. She is on Coumadin for history of stroke. REVIEW OF SYSTEMS: See HPI for pertinent positives and pertinent negatives. ALLERGIES: See below MEDICATIONS: See below PAST MEDICAL HISTORY: See below PHYSICAL EXAM: VITALS: Vitals are noted on the nurse's note and reviewed by myself. GENERAL: Non toxic, no acute distress, non-diaphoretic. SKIN: Capillary refill <2 sec. EYES: PERRLA. EOMI. Conjunctivae without injection, sclerae without icterus. NOSE: Patent without discharge. MOUTH: Mucous membranes moist. Uvula midline. Airway patent. NECK: Supple without nuchal rigidity. HEART: Regular rate and rhythm without murmurs gallops or rubs. LUNGS: Clear to auscultation bilaterally without wheezes, rales or rhonchi. No retractions or accessory muscle use. ABDOMEN: Positive bowel sounds x 4. Normal tympanic percussion. Soft, diffusely tender to palpation with no maximal area of tenderness. No masses or organomegaly. Salazar sign negative. No guarding or rebound tenderness. No focal RLQ or LLQ tenderness. MUSCULOSKELETAL: No gross musculoskeletal defects. NEURO: Patient was alert and oriented. No focal neurological deficits. DIFFERENTIAL DIAGNOSIS: Differential diagnosis includes hepatitis, pancreatitis, cholecystitis, cholelithiasis, appendicitis, kidney stone, pyelonephritis, UTI, gastritis, gastroenteritis, mesenteric adenitis, obstruction, constipation, hernia, abdominal abscess, perforation, diverticulitis, IBD, ischemic colitis, abdominal aortic aneurysm, , ectopic , ovarian cyst, ovarian torsion, acute salpingitis, or others. ED COURSE AND MEDICAL DECISION MAKING: HISTORY FROM INDEPENDENT HISTORIAN: Additional history obtained from the patient's daughter and sister MONITOR: Continuous clinical research monitor: Order was placed for continuous clinical research monitor. Patient was placed on the clinical research monitor and continuous pulse ox. Patient was noted to be in normal sinus rhythm at an initial rate of 80 bpm per my interpretation. EKG: EKG was interpreted by myself as atrial fibrillation at 86 bpm with no acute ST or T wave changes and no acute change from her previous EKG. MEDICATIONS GIVEN: 250 mL normal saline solution bolus. Pepcid 20 mg IV. Zofran 4 mg IV. INTERPRETATION OF LABS: I interpreted the labs with full lab results as below in the lab section of this note. White blood cell count normal at 6.40. Hemoglobin low at 11.6. Platelet count normal at 288. INR 1.5 and PT 15.6. APTT and PTT normal. Sodium low at 125, chloride 89, glucose 106 and total bilirubin 1.4. CMP otherwise without acute abnormalities. Magnesium normal. High-sensitivity troponin normal. Lipase normal. TSH normal. Urinalysis with trace ketones, but otherwise normal. INTERPRETATION OF IMAGING: Chest x-ray as interpreted by myself was negative for acute changes compared to her previous chest x-ray. Radiology report is still pending. CT scan of the abdomen and pelvis with IV contrast was interpreted by myself and read by radiology as below. It showed atrophy/scarring in the right kidney, but no hydronephrosis or obstructive uropathy. Status post hysterectomy. Diverticulosis without diverticulitis. No evidence for small bowel obstruction. No free intraperitoneal air. CONSULTATIONS: On-call hospitalist MDM SUMMARY: The patient was seen during a time of extreme volume and extreme acuity. Nursing triage protocols were initiated with IV lock, labs, and/or imaging studies conducted by protocol in the triage area. The patient was initially evaluated in a sub-waiting room and then re-examined once they were taken back to an exam room. The patient has been having problems with constipation recently. Having progressively worsening early satiety, abdominal pain, and now nausea and vomiting. The patient has not been eating or drinking much at home. She saw her PCP and was advised to start magnesium citrate for the constipation. She was only able to take a small amount of magnesium citrate, but feels that it made her symptoms worse. The patient was given 250 mL normal saline solution bolus, Pepcid 20 mg IV, and Zofran 4 mg IV with mild improvement of her symptoms. Her sodium was low at 125. Total bilirubin 1.4. Remainder the laboratory studies without significant abnormalities. EKG, chest x-ray, and high-sensitivity troponin without acute abnormalities. Low suspicion for ACS at this time. CT scan of the abdomen and pelvis with IV contrast showed no evidence for obstruction, but did show other nonemergent findings as above. I had a meaningful discussion about this patient with Dr. Bunch who agrees with my assessment and the treatment plan. We feel the patient requires admission for further management due to her hyponatremia, difficulty tolerating oral intake at home, and vomiting. I spoke with the on-call hospitalist who agreed to admit the patient for further evaluation and treatment. Please refer to their dictation for further details. The patient's care was transferred in stable condition. DIAGNOSIS: Hyponatremia Constipation Nausea and vomiting Past Med/Surg History Problem List (Updated 02/07/24 @ 06:36 by Ella Pena PA-C) Nausea & vomiting (Acute) Constipation (Acute) Acute hyponatremia (Acute) Dehydration Atrial fibrillation dx a long time ago. FOLLOWS WITH DR. DUVAL, on Coumadin. no hx cardioversion. Constipation Hyponatremia Nonsustained ventricular tachycardia Vulvitis Closed rib fracture S/P total knee replacement using cement Osteoarthritis of left knee Encounter for pre-operative examination DVT prophylaxis Hypothyroidism Syncope (Acute) Atrial fibrillation, rapid (Acute) Elevated troponin (Acute) Closed head injury (Acute) Spinal stenosis (Acute) Sciatica (Acute) Leg pain (Acute) Medical History Difficulty swallowing with pills , since stroke. History of colon polyps History of Mohs micrographic surgery for skin cancer History of basal cell cancer forehead/removed. History of kidney stones Overactive bladder SOBOE (shortness of breath on exertion) Arthritis Constipation Borderline diabetes diet managed Atrial fibrillation dx a long time ago. FOLLOWS WITH DR. DUVAL, on Coumadin. no hx cardioversion. CVA (cerebral vascular accident) ~ 2014. No long-term deficits, on ASA 81mg. Trouble swallowing pills since stroke. GERD (gastroesophageal reflux disease) Spinal stenosis scheduled for epidural injections in Sep 2022 Hypercholesterolemia Hypertension Hypothyroidism Surgical History History of cataract surgery History of left knee replacement History of bilateral breast reduction surgery Family history of reaction to anesthesia Hx of hysterectomy History of discectomy History of appendectomy History of tooth extraction History of tonsillectomy and adenoidectomy History of cardiac catheterization History of colonoscopy Family History (Updated 11/11/23 @ 13:44 by Elisa Montesinos MD, FACOG) Mother Diabetes Ovarian cancer Sister Family hx of colon cancer Father Diabetes Myocardial infarction Stroke Aunt Breast cancer Brother Myocardial infarction Sister Uterine cancer sarcoma Sister Cancer of peritoneum Other Cervical malignancy GI malignancy Heart disease Liver malignancy Denies family history of Prostate cancer Colorectal cancer Social History Smoking Status: Never smoker Second Hand Exposure: No; Do You Dip or Chew Tobacco: No; Hx Alcohol Use: No Hx Substance Use: No Preferred Language: Ghanaian Communication Ability: Effective Communication Ability Comment: pt requests lester oconnor help with phone call. 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 Beliefs That Will Affect Care: None marital status: Current Living Situation: Alone current occupational status: retired Feels Safe at Home: Yes Assistive Devices: Glasses Allergies Allergies Allergy/AdvReac Type Severity Reaction Status Date / Time alendronate sodium Allergy Severe Swelling Verified 02/06/24 23:38 [From Fosamax] of Lip/Tongue/Throat benzethonium chloride Allergy Intermediate Rash Verified 02/06/24 23:38 [From Lanacane Galva] benzocaine Allergy Intermediate Rash Verified 02/06/24 23:38 [From Lanacane Galva] sertraline Allergy Intermediate rash Verified 02/06/24 23:38 remembered by pt, dizzy listed on notes. Sulfa (Sulfonamide Allergy Intermediate RASH Verified 02/06/24 23:38 Antibiotics) wool Allergy Intermediate Rash and Verified 02/06/24 23:38 Itching dipyridamole Allergy Unknown pt not sure Verified 02/06/24 23:38 methyldopa Allergy Unknown pt not Verified 02/06/24 23:38 sure / doesn't remember amoxicillin [From Augmentin] AdvReac Intermediate Diarrhea Verified 02/06/24 23:38 clavulanic acid AdvReac Intermediate Diarrhea Verified 02/06/24 23:38 [From Augmentin] simvastatin [From Zocor] AdvReac Intermediate elevated Verified 02/06/24 23:38 LFT Fvronsx-LNH-PfV Reductase AdvReac Intermediate MUSCLE PAIN Verified 02/06/24 23:38 Inhibitor [Vyzbsym-Nbo-Zid Reductase Inhibitor] venlafaxine AdvReac Intermediate pt doesn't Verified 02/06/24 23:38 remember, dizzy listed on notes. Home Meds Home Medications Medication Instructions Recorded Confirmed hydrochlorothiazide 12.5 mg tablet 12.5 mg PO QAM 07/31/18 02/06/24 levothyroxine 50 mcg tablet 50 mcg PO QAM 07/31/18 02/06/24 lisinopril 10 mg tablet 10 mg PO QDL 07/31/18 02/06/24 metoclopramide HCl 5 mg tablet 5 mg PO QAM 07/31/18 02/06/24 (Reglan) metoprolol tartrate 25 mg tablet 50 mg PO BID 07/31/18 02/06/24 pravastatin 40 mg tablet 40 mg PO QPM 07/31/18 02/06/24 omeprazole 20 mg tablet,delayed 20 mg PO QAM 12/03/19 02/06/24 release aspirin 81 mg tablet,delayed 81 mg PO QAM 06/13/20 02/06/24 release mirabegron 25 mg tablet,extended 25 mg PO QAM 07/02/21 02/06/24 release 24 hr (Myrbetriq) calcium carbonate (Calcium 600) 600 mg PO QAM 01/30/22 02/06/24 warfarin 5 mg tablet See Rx Instructions .Route 01/30/22 02/06/24 .COMPLEX DVT prophylaxis Lactobacillus 1 cap PO QPM 12/29/22 02/06/24 acidophilus-Bifidobac.animalis 2 billion cell capsule (TruBiotics) acetaminophen 650 mg 1,300 mg PO Q8H PRN Pain 12/29/22 02/06/24 tablet,extended release cyanocobalamin (vitamin B-12) 50 3,000 mcg PO QAM 12/29/22 02/06/24 mcg tablet potassium chloride 10 mEq 10 meq PO QAM 12/29/22 02/06/24 tablet,extended release diclofenac sodium 1 % topical gel 2 g topical QID PRN Pain 11/11/23 02/06/24 (Voltaren Arthritis Pain) Results & Data (ED) Vital Signs Vital Signs - 24 hr 02/06/24 19:55 02/06/24 23:08 02/06/24 23:12 Temperature 36.7 C Temperature Source Temporal Artery Scan Pulse Rate 70 83 91 H Pulse Rate from SpO2 Sensor 90 Respiratory Rate 18 22 Respiratory Effort / Characteristics Non-Labored Spontaneous Respiratory Depth Normal Respiratory Pattern Regular Blood Pressure 197/82 H Blood Pressure Mean 120 Blood Pressure Position Sitting Pulse Oximetry 100 100 Oxygen Delivery Method Room Air Sepsis Recent Fever Within 48 Hours No Sepsis New/Unexplained Change in Mental Status No Sepsis Action Taken by Nursing No Action Required 02/06/24 23:39 02/06/24 23:47 Temperature Temperature Source Pulse Rate 78 71 Pulse Rate from SpO2 Sensor 83 Respiratory Rate 20 Respiratory Effort / Characteristics Respiratory Depth Respiratory Pattern Blood Pressure 169/75 H Blood Pressure Mean 119 Blood Pressure Position Pulse Oximetry 96 Oxygen Delivery Method Sepsis Recent Fever Within 48 Hours Sepsis New/Unexplained Change in Mental Status Sepsis Action Taken by Nursing Laboratory Data 02/07/24 04:28 02/07/24 04:28 Lab Results 02/06/24 02/06/24 Range/Units 20:30 23:55 WBC 6.40 (4.8-10.8) K/ul RBC 4.33 (4.20-5.40) M/uL Hgb 11.6 L (12.0-16.0) g/dl Hct 35.9 L (37.0-47.0) % MCV 82.9 (80.0-100.0) fL MCH 26.8 (25.0-34.0) pg MCHC 32.3 (32.0-36.0) g/dL RDW Std Deviation 43.9 (36.4-46.3) fL RDW Coeff of Charlene 14.6 H (11.5-14.5) % Plt Count 288 (130-400) K/uL MPV 9.6 (9.4-12.4) fL Immature Gran % (Auto) 0.5 % Neut % (Auto) 74.6 % Lymph % (Auto) 13.3 % Garrett % (Auto) 10.8 % Eos % (Auto) 0.5 % Baso % (Auto) 0.3 % Neut # (Auto) 4.78 (1.40-6.50) K/uL Lymph # (Auto) 0.85 L (1.20-3.40) K/uL Garrett # (Auto) 0.69 H (0.11-0.59) K/uL Eos # (Auto) 0.03 (0.00-0.50) K/uL Baso # (Auto) 0.02 (0.00-0.20) K/uL Immature Gran # (Auto) 0.03 (0.01-0.20) K/uL Sodium 125 L (136-145) mmol/L Potassium 4.2 (3.5-5.1) mmol/L Chloride 89 L (98-107) mmol/L Carbon Dioxide 26 (21-32) mmol/L Anion Gap 10 (3-11) BUN 17 (6-23) mg/dl Creatinine 0.75 (0.6-1.2) mg/dl Est Cr Clr Drug Dosing Not Reportable Est GFR ( Amer) 83.1 ml/min Est GFR (Non-Af Amer) 71.7 ml/min BUN/Creatinine Ratio 22.7 H (10-20) Glucose 106 H (70-99(Fasting)) mg/dl Osmolality 268 L (280-300) mOsm/kg Calcium 9.9 (8.6-10.3) mg/dl Magnesium 2.0 (1.7-2.4) mg/dl Total Bilirubin 1.4 H (0.2-1.0) mg/dl AST 23 (13-39) U/L ALT 13 (7-52) U/L Alkaline Phosphatase 43 (34-104) U/L Troponin I High Sens 6.5 (0-14) pg/ml Total Protein 8.1 (6.0-8.3) gm/dl Albumin 4.6 (3.4-5.0) gm/dl Globulin 3.5 (2.5-4.0) gm/dl Albumin/Globulin Ratio 1.3 (0.9-2) Lipase 29 (11-82) U/L TSH 1.128 (0.300-4.500) uIu/ml Urine Color Yellow Urine Appearance Clear (Clear) Urine pH 8.0 H (4.5-7.5) Ur Specific [place] 1.006 (1.000-1.030) Urine Protein Negative (Negative) Urine Glucose (UA) Negative (Negative) Urine Ketones Trace H (Negative) Urine Blood Negative (Negative) Urine Nitrite Negative (Negative) Urine Bilirubin Negative (Negative) Urine Urobilinogen Negative (Negative) Ur Leukocyte Esterase Negative (Negative) Urine Osmolality 196 L (500-800) mOsm/kg Administered Medications Enoxaparin Sodium (Enoxaparin 80 Mg/0.8 Ml Syr) 70 mg SQ Q12H DAVID Stop: 03/08/24 04:14 Last Admin: 02/07/24 04:39 Dose: 70 mg Documented By: ASHER Amiodarone HCl/Dextrose (Nexterone / D5w) 360 mg in 200 mls @ 33.333 mls/hr IV ONE ONE Stop: 02/07/24 09:57 Last Admin: 02/07/24 04:32 Dose: 1 mg/min, 33.3 mls/hr Documented By: ASHER Co-signed By: OLIVER Discontinued Medications Bisacodyl (Bisacodyl 10 Mg Supp) 10 mg NV NOW STA Stop: 02/07/24 00:10 Last Admin: 02/07/24 01:08 Dose: 10 mg Documented By: WILL Famotidine (Pepcid 20mg Iv Push) 20 mg in 5 mls @ 2.5 mls/min IV NOW STA Stop: 02/06/24 22:15 Last Admin: 02/06/24 23:04 Dose: 2.5 mls/min Documented By: TERESA Sodium Chloride (Nss) 250 mls @ 999 mls/hr IV .Q16M ONE Stop: 02/06/24 22:29 Last Infusion: 02/06/24 23:30 Dose: Infused Documented By: Admin: 02/06/24 23:04 Dose: 999 mls/hr Documented By: TERESA Pantoprazole Sodium 40 mg/ (Syringe) 10 mls @ 5 mls/min IV NOW STA Stop: 02/07/24 00:08 Last Admin: 02/07/24 01:07 Dose: 5 mls/min Documented By: WILL Potassium Chloride/Sodium Chloride (Normal Saline W/20 Meq Kcl) 20 meq in 1,000 mls @ 100 mls/hr IV .Q10H STA; Protocol Stop: 02/07/24 10:06 Last Admin: 02/07/24 01:06 Dose: 100 mls/hr Documented By: WILL Amiodarone HCl/Dextrose (Nexterone / D5w) 150 mg in 100 mls @ 600 mls/hr IV NOW STA Stop: 02/07/24 03:57 Last Infusion: 02/07/24 04:33 Dose: Infused Documented By: ASHER Co-signed By: OLIVER Admin: 02/07/24 04:19 Dose: 600 mls/hr Documented By: ASHER Co-signed By: NICK Metoprolol Tartrate (Metoprolol Tartrate 1 Mg/Ml Vial) 2.5 mg IV Q4 DAVID Stop: 03/08/24 03:59 Last Admin: 02/07/24 04:23 Dose: Not Given Documented By: ASHER Ondansetron HCl (Ondansetron Inj 2 Mg/Ml 2 Ml Vial) 4 mg IV NOW STA Stop: 02/06/24 22:15 Last Admin: 02/06/24 23:04 Dose: 4 mg Documented By: TERESA Imaging Data Radiologist's Impression: Abdomen/Pelvis CT 02/06/24 20:39 Exam(s): CT ABDOMEN + PELVIS Without Contrast EXAM: CT Abdomen and Pelvis Without Intravenous Contrast CLINICAL HISTORY: Reason for exam: poss obstruc. TECHNIQUE: Axial computed tomography images of the abdomen and pelvis without intravenous contrast. CTDI is 18.96 mGy and DLP is 818.76 mGy-cm. Automated exposure control was utilized for the study. A dose lowering technique was utilized adhering to the principles of ALARA. COMPARISON: No relevant prior studies available. FINDINGS: Lung bases: Unremarkable. No mass. No consolidation. ABDOMEN: Liver: Unremarkable. Gallbladder and bile ducts: Unremarkable. No calcified stones. No ductal dilation. Pancreas: Unremarkable. No ductal dilation. Spleen: Unremarkable. No splenomegaly. Adrenals: Unremarkable. No mass. Kidneys and ureters: Atrophy/scarring in the RIGHT kidney. No hydronephrosis or obstructive uropathy. Stomach and bowel: Diverticulosis, without acute diverticulitis. No small bowel obstruction. No free intraperitoneal air. PELVIS: Appendix: No findings to suggest acute appendicitis. Bladder: Unremarkable. No stones. Reproductive: Hysterectomy. ABDOMEN and PELVIS: Intraperitoneal space: Unremarkable. No free air. No significant fluid collection. Bones/joints: Degenerative changes of the spine. No acute fracture. No dislocation. Soft tissues: Unremarkable. Vasculature: Atherosclerotic changes of the aorta. No abdominal aortic aneurysm. Lymph nodes: Unremarkable. No enlarged lymph nodes. IMPRESSION: 1. Atrophy/scarring in the RIGHT kidney. No hydronephrosis or obstructive uropathy. 2. Hysterectomy. 3. Diverticulosis, without acute diverticulitis. No small bowel obstruction. No free intraperitoneal air. Electronically signed by: Shay Hua MD 02/06/24 21:46 PM Discharge Plan Visit Data Chief Complaint: Referred by Doctor Stated Complaint: BOWEL BLOCKAGE, VOMIT, ED Provider: Nikolai Bunch ED Midlevel Provider: Ella Pena Discharge Problem: Acute hyponatremia, Constipation, Nausea & vomiting Patient Disposition: Admitted As Inpatient Condition: Good Discharge Instructions Interventions: ED Discharge Assessment Last Done: 02/07/24 02:24 Discharge Problem: Constipation Qualifiers: Constipation type: unspecified constipation type Qualified Code(s): K59.00 - Constipation, unspecified Nausea & vomiting Qualifiers: Vomiting type: unspecified Qualified Code(s): R11.2 - Nausea with vomiting, unspecified
[2024-02-06 22:51] LABS: Troponin I High Sensitivity 6.5 pg/ml (0-14)
[2024-02-06 23:00] LABS: Thyroid Stimulating Hormone 1.128 uIu/ml (0.300-4.500)
[2024-02-06] MEDS: SODIUM CHLORIDE 0.9% 250 ML IV ONE (23:04)
[2024-02-06] MEDS: ONDANSETRON INJ 2 MG/ML 2 ML VIAL IV STA (23:04)
[2024-02-06] MEDS: FAMOTIDINE 20MG IV PUSH 20 MG/5 ML SYR IV STA (23:04)
--- NOTE | 2024-02-06 23:30 | Emergency Department Note ---
ED Visit Note I was consulted by the Advanced Practice Provider. The case was discussed at length. I personally made/approved the management plan and take responsibility for the patient management. I performed a substantive portion of the visit. This includes the aspects of: [-I independently interpreted the following studies:][Chest x-ray shows chronic changes, there is no pneumonia, free air or acute mediastinal widening.] The patient presents with concerns for bowel obstruction. CT imaging does not show obstruction. The patient was found to have a low sodium. She is not doing well with oral intake. Admission/observation was felt warranted. .
--- NOTE | 2024-02-07 00:11 | History & Physical Report ---
Date of Service February 07, 2024 Assessment & Plan (1) Nonsustained ventricular tachycardia: (2) Atrial fibrillation: (3) Hyponatremia: (4) Dehydration: (5) Constipation: (6) Hypothyroidism: Plan Nonsustained ventricular tachycardia/history of atrial fibrillation- The patient will be admitted to telemetry for serial cardiac enzymes, serial EKG's, cardiac rhythm monitoring and a 2-D echocardiogram with Dopplers. While in the emergency department, patient had a 30 beat run of nonsustained V. tach that was asymptomatic She had missed her evening dosages of Lopressor and warfarin. The plan was initially to have the patient on low-dose Lopressor 2.5 mg IV every 4 hours with hold parameters, however, that was discontinued. Patient was placed on amiodarone bolus and drip per protocol. Patient has been on warfarin, however, her INR was 1.5 on admission, and will therefore be placed on therapeutic Lovenox 1 mg/kg SQ every 12 hours in the interim Hold metoprolol, lisinopril, HCTZ, potassium chloride and aspirin She follows with [facility] cardiology, who will be consulted Hyponatremia- Sodium 125, serum osmolality 268, urine osmolality 196 These labs suggest polydipsia, however, more likely contaminated by the use of HCTZ, which will be held. Patient has had very restricted oral intake over the past several days due to nausea and constipation Patient did receive 1 L normal saline from the ED Will continue NSS at 60 mL/h x 1 L, and should have a fluid restriction of 15 00ml, trying to leave enough fluid to help with relief of constipation Follow serial laboratories in the a.m. Constipation- As noted, patient had attempted to take mag citrate in the outpatient setting as directed, however, after one third of the dose, she vomited. CT scan abdomen and pelvis negative for obstruction Gentle rehydration as above Given Dulcolax suppository now, and then daily as needed History of Present Illness Chief Complaint: The patient presents to the emergency department with her sister, who helps to provide most of her HPI and review of systems. The patient has had 10 days of abdominal pain, nausea, weakness in the knees, lightheadedness, decreased oral intake for liquids and solids. She saw the outpatient PCP at 230 this afternoon, due to concerns regarding constipation, and was told to take magnesium citrate. She took about one third of the dose, and within minutes had significant vomiting, and with that event she was brought to the ED for assessment. Family reports that she has not taken any of her medications all day due to worsening of her symptoms Primary Care Provider: Sharmaine Kelly MD The patient is a 88-year-old female with a past medical history including stage III pressure ulcer of buttock/sacral region, vulvitis, syncope, hypothyroidism, A-fib with RVR, lumbar spinal stenosis with history of radiculopathy, B12 deficiency, hypertension, GERD and hyperlipidemia. The patient has had 10 days of symptoms as noted above, which were amplified after trying to take a small dose of magnesium citrate to get her bowels moving this evening prior to arrival. She reports that over the past few days, she has periodically had to lean over against furniture and rest due to fatigue. She does not feel that she would be able to take in any oral food or medications at this time. CT scan of abdomen and pelvis was negative for obstruction. Allergies Allergy/AdvReac Type Severity Reaction Status Date / Time alendronate sodium Allergy Severe Swelling Verified 02/06/24 23:38 [From Fosamax] of Lip/Tongue/Throat benzethonium chloride Allergy Intermediate Rash Verified 02/06/24 23:38 [From [place]] benzocaine Allergy Intermediate Rash Verified 02/06/24 23:38 [From [place]] sertraline Allergy Intermediate rash Verified 02/06/24 23:38 remembered by pt, dizzy listed on notes. Sulfa (Sulfonamide Allergy Intermediate RASH Verified 02/06/24 23:38 Antibiotics) wool Allergy Intermediate Rash and Verified 02/06/24 23:38 Itching dipyridamole Allergy Unknown pt not sure Verified 02/06/24 23:38 methyldopa Allergy Unknown pt not Verified 02/06/24 23:38 sure / doesn't remember amoxicillin [From Augmentin] AdvReac Intermediate Diarrhea Verified 02/06/24 23:38 clavulanic acid AdvReac Intermediate Diarrhea Verified 02/06/24 23:38 [From Augmentin] simvastatin [From Zocor] AdvReac Intermediate elevated Verified 02/06/24 23:38 LFT Njotfed-EIQ-UcR Reductase AdvReac Intermediate MUSCLE PAIN Verified 02/06/24 23:38 Inhibitor [Wlrrpqo-Moe-Vxn Reductase Inhibitor] venlafaxine AdvReac Intermediate pt doesn't Verified 02/06/24 23:38 remember, dizzy listed on notes. Home Medications Medication Instructions Recorded Confirmed Type hydrochlorothiazide 12.5 mg tablet 12.5 mg PO QAM 07/31/18 02/06/24 History levothyroxine 50 mcg tablet 50 mcg PO QAM 07/31/18 02/06/24 History lisinopril 10 mg tablet 10 mg PO QDL 07/31/18 02/06/24 History metoclopramide HCl 5 mg tablet 5 mg PO QAM 07/31/18 02/06/24 History (Reglan) metoprolol tartrate 25 mg tablet 50 mg PO BID 07/31/18 02/06/24 History pravastatin 40 mg tablet 40 mg PO QPM 07/31/18 02/06/24 History omeprazole 20 mg tablet,delayed 20 mg PO QAM 12/03/19 02/06/24 History release aspirin 81 mg tablet,delayed 81 mg PO QAM 06/13/20 02/06/24 History release mirabegron 25 mg tablet,extended 25 mg PO QAM 07/02/21 02/06/24 History release 24 hr (Myrbetriq) calcium carbonate (Calcium 600) 600 mg PO QAM 01/30/22 02/06/24 History warfarin 5 mg tablet See Rx Instructions .Route 01/30/22 02/06/24 History .COMPLEX DVT prophylaxis Lactobacillus 1 cap PO QPM 12/29/22 02/06/24 History acidophilus-Bifidobac.animalis 2 billion cell capsule (TruBiotics) acetaminophen 650 mg 1,300 mg PO Q8H PRN Pain 12/29/22 02/06/24 History tablet,extended release cyanocobalamin (vitamin B-12) 50 3,000 mcg PO QAM 12/29/22 02/06/24 History mcg tablet potassium chloride 10 mEq 10 meq PO QAM 12/29/22 02/06/24 History tablet,extended release diclofenac sodium 1 % topical gel 2 g topical QID PRN Pain 11/11/23 02/06/24 History (Voltaren Arthritis Pain) Past Med/Surg History Problem List (Updated 02/07/24 @ 06:03 by Umair Lindsay MD) Dehydration Atrial fibrillation dx a long time ago. FOLLOWS WITH DR. DUVAL, on Coumadin. no hx cardioversion. Constipation Hyponatremia Nonsustained ventricular tachycardia Vulvitis Closed rib fracture S/P total knee replacement using cement Osteoarthritis of left knee Encounter for pre-operative examination DVT prophylaxis Hypothyroidism Syncope (Acute) Atrial fibrillation, rapid (Acute) Elevated troponin (Acute) Closed head injury (Acute) Spinal stenosis (Acute) Sciatica (Acute) Leg pain (Acute) Medical History Difficulty swallowing with pills , since stroke. History of colon polyps History of Mohs micrographic surgery for skin cancer History of basal cell cancer forehead/removed. History of kidney stones Overactive bladder SOBOE (shortness of breath on exertion) Arthritis Constipation Borderline diabetes diet managed Atrial fibrillation dx a long time ago. FOLLOWS WITH DR. DUVAL, on Coumadin. no hx cardioversion. CVA (cerebral vascular accident) ~ 2014. No long-term deficits, on ASA 81mg. Trouble swallowing pills since stroke. GERD (gastroesophageal reflux disease) Spinal stenosis scheduled for epidural injections in Sep 2022 Hypercholesterolemia Hypertension Hypothyroidism Surgical History History of cataract surgery History of left knee replacement History of bilateral breast reduction surgery Family history of reaction to anesthesia Hx of hysterectomy History of discectomy History of appendectomy History of tooth extraction History of tonsillectomy and adenoidectomy History of cardiac catheterization History of colonoscopy Family History (Updated 11/11/23 @ 13:44 by Elisa Montesinos MD, FACOG) Mother Diabetes Ovarian cancer Sister Family hx of colon cancer Father Diabetes Myocardial infarction Stroke Aunt Breast cancer Brother Myocardial infarction Sister Uterine cancer sarcoma Sister Cancer of peritoneum Other Cervical malignancy GI malignancy Heart disease Liver malignancy Denies family history of Prostate cancer Colorectal cancer Social History Smoking Status: Never smoker Second Hand Exposure: No; Do You Dip or Chew Tobacco: No; Hx Alcohol Use: No Hx Substance Use: No Preferred Language: [place]ian Communication Ability: Effective Communication Ability Comment: pt requests lester help with phone call. Visual Impairment: No Limitations Hearing Ability: Normal Pet Care Technician Required: No Beliefs That Will Affect Care: None marital status: Current Living Situation: Alone current occupational status: retired Feels Safe at Home: Yes Assistive Devices: Glasses Review of Systems Review of Systems: The patient and family denies chest pain, palpitations, shortness of breath, dyspnea on exertion, cough, lower extremity swelling, sore throat, fevers, chills, sweats, blood in urine or stool, dysuria, urinary frequency or urgency, loss of consciousness, rash, abnormal bruising or bleeding, focal weakness, numbness or tingling in arms or legs, generalized arthralgias or myalgias, back or neck pain, or night sweats. The review of systems is otherwise negative other than for that already noted above, and at least 10 systems have been reviewed. Physical Exam Physical Exam: The patient is awake, alert and oriented 3, well developed and well nourished, normocephalic and atraumatic, lying in bed and in no acute distress. HEENT--PERRL, EOMI, mucous membranes and oropharynx dry. Neck-- No JVD. No bruits. Thyroid normal, trachea midline, no adenopathy. Heart-atrial fibrillation. No murmurs, rubs or gallops. Lungs--clear bilaterally, no respiratory distress, no accessory muscle use. Abdomen--normal bowel sounds and soft. Nontender. Mildly distended. No hernias or masses, no organomegaly. Extremities--No edema. Dermatologic--normal skin turgor, normal color, no abnormal lymph nodes, no rash. Neurologic--cranial nerves II through XII grossly intact. Rheumatologic--normal range of motion. Psychiatric--normal affect. Results & Data Results & Data Vital Signs (Past 12 Hours) Vital Signs Temp Pulse Resp BP Pulse Ox O2 Del Method 02/06/24 23:08 83 02/06/24 19:55 36.7 C 70 18 197/82 H 100 Room Air Laboratory Results Laboratory Results WBC 5.06 K/ul (4.8-10.8) 02/07/24 04:28 RBC 4.28 M/uL (4.20-5.40) 02/07/24 04:28 Hgb 11.5 g/dl (12.0-16.0) L 02/07/24 04:28 Hct 35.6 % (37.0-47.0) L 02/07/24 04:28 MCV 83.2 fL (80.0-100.0) 02/07/24 04:28 MCH 26.9 pg (25.0-34.0) 02/07/24 04:28 MCHC 32.3 g/dL (32.0-36.0) 02/07/24 04:28 RDW Std Deviation 44.3 fL (36.4-46.3) 02/07/24 04: RDW Coeff of Charlene 14.7 % (11.5-14.5) H 02/07/24 04:28 Plt Count 275 K/uL (130-400) 02/07/24 04:28 MPV 10.9 fL (9.4-12.4) 02/07/24 04:28 Immature Gran % (Auto) 0.6 % 02/07/24 04:28 Neut % (Auto) 67.8 % 02/07/24 04:28 Lymph % (Auto) 16.0 % 02/07/24 04:28 [place] % (Auto) 14.2 % 02/07/24 04:28 Eos % (Auto) 1.0 % 02/07/24 04:28 Baso % (Auto) 0.4 % 02/07/24 04:28 Neut # (Auto) 3.43 K/uL (1.40-6.50) 02/07/24 04:28 Lymph # (Auto) 0.81 K/uL (1.20-3.40) L 02/07/24 04:28 [place] # (Auto) 0.72 K/uL (0.11-0.59) H 02/07/24 04:28 Eos # (Auto) 0.05 K/uL (0.00-0.50) 02/07/24 04:28 Baso # (Auto) 0.02 K/uL (0.00-0.20) 02/07/24 04:28 Immature Gran # (Auto) 0.03 K/uL (0.01-0.20) 02/07/24 04:28 PT 15.6 Seconds (9.0-12.0) H 02/07/24 00:37 INR 1.5 (0.9-1.1) H 02/07/24 00:37 APTT 28 Seconds (21-31) 02/07/24 00:37 PTT Ratio 1.0 02/07/24 00:37 Sodium TNP 02/07/24 04:28 Potassium TNP 02/07/24 04:28 Chloride 95 mmol/L (98-107) L 02/07/24 04:28 Carbon Dioxide 25 mmol/L (21-32) 02/07/24 04:28 Anion Gap TNP 02/07/24 04:28 BUN 15 mg/dl (6-23) 02/07/24 04:28 Creatinine 0.67 mg/dl (0.6-1.2) 02/07/24 04:28 Est Cr Clr Drug Dosing 54.6 ml/min 02/07/24 04:28 Est GFR ( Amer) 91.6 ml/min 02/07/24 04:28 Est GFR (Non-Af Amer) 79.0 ml/min 02/07/24 04:28 BUN/Creatinine Ratio 22.4 (10-20) H 02/07/24 04:28 Glucose 101 mg/dl (70-99(Fasting)) H 02/07/24 04:28 Osmolality 268 mOsm/kg (280-300) L 02/06/24 20:30 Calcium 9.3 mg/dl (8.6-10.3) 02/07/24 04:28 Phosphorus 3.3 mg/dl (2.5-4.9) 02/07/24 04:28 Magnesium TNP 02/07/24 04:28 Total Bilirubin 1.4 mg/dl (0.2-1.0) H 02/06/24 20:30 AST 23 U/L (13-39) 02/06/24 20:30 ALT 13 U/L (7-52) 02/06/24 20:30 Alkaline Phosphatase 43 U/L (34-104) 02/06/24 20:30 Troponin I High Sens 6.5 pg/ml (0-14) 02/06/24 20:30 Total Protein 8.1 gm/dl (6.0-8.3) 02/06/24 20:30 Albumin 4.2 gm/dl (3.4-5.0) 02/07/24 04:28 Globulin 3.5 gm/dl (2.5-4.0) 02/06/24 20:30 Albumin/Globulin Ratio 1.3 (0.9-2) 02/06/24 20:30 Lipase 29 U/L (11-82) 02/06/24 20:30 TSH 1.128 uIu/ml (0.300-4.500) 02/06/24 20:30 Urine Color Yellow 02/06/24 23:55 Urine Appearance Clear (Clear) 02/06/24 23:55 Urine pH 8.0 (4.5-7.5) H 02/06/24 23:55 Ur Specific [place] 1.006 (1.000-1.030) 02/06/24 23:55 Urine Protein Negative (Negative) 02/06/24 23:55 Urine Glucose (UA) Negative (Negative) 02/06/24 23:55 Urine Ketones Trace (Negative) H 02/06/24 23:55 Urine Blood Negative (Negative) 02/06/24 23:55 Urine Nitrite Negative (Negative) 02/06/24 23:55 Urine Bilirubin Negative (Negative) 02/06/24 23:55 Urine Urobilinogen Negative (Negative) 02/06/24 23:55 Ur Leukocyte Esterase Negative (Negative) 02/06/24 23:55 Urine Osmolality 196 mOsm/kg (500-800) L 02/06/24 23:55 Impressions Abdomen/Pelvis CT 02/06/24 20:39 Exam(s): CT ABDOMEN + PELVIS Without Contrast EXAM: CT Abdomen and Pelvis Without Intravenous Contrast CLINICAL HISTORY: Reason for exam: poss obstruc. TECHNIQUE: Axial computed tomography images of the abdomen and pelvis without intravenous contrast. CTDI is 18.96 mGy and DLP is 818.76 mGy-cm. Automated exposure control was utilized for the study. A dose lowering technique was utilized adhering to the principles of ALARA. COMPARISON: No relevant prior studies available. FINDINGS: Lung bases: Unremarkable. No mass. No consolidation. ABDOMEN: Liver: Unremarkable. Gallbladder and bile ducts: Unremarkable. No calcified stones. No ductal dilation. Pancreas: Unremarkable. No ductal dilation. Spleen: Unremarkable. No splenomegaly. Adrenals: Unremarkable. No mass. Kidneys and ureters: Atrophy/scarring in the RIGHT kidney. No hydronephrosis or obstructive uropathy. Stomach and bowel: Diverticulosis, without acute diverticulitis. No small bowel obstruction. No free intraperitoneal air. PELVIS: Appendix: No findings to suggest acute appendicitis. Bladder: Unremarkable. No stones. Reproductive: Hysterectomy. ABDOMEN and PELVIS: Intraperitoneal space: Unremarkable. No free air. No significant fluid collection. Bones/joints: Degenerative changes of the spine. No acute fracture. No dislocation. Soft tissues: Unremarkable. Vasculature: Atherosclerotic changes of the aorta. No abdominal aortic aneurysm. Lymph nodes: Unremarkable. No enlarged lymph nodes. IMPRESSION: 1. Atrophy/scarring in the RIGHT kidney. No hydronephrosis or obstructive uropathy. 2. Hysterectomy. 3. Diverticulosis, without acute diverticulitis. No small bowel obstruction. No free intraperitoneal air. Electronically signed by: Shay Hua MD 02/06/24 21:46 PM Code Status & VTE Plan Code Status Full code VTE Prophylaxis Plan VTE Prophylaxis will be ordered: Yes PG Care Time/CCT Total # of Minutes Spent Total Time Spent with Patient: Total time spent is greater than 50% in coordination of care (as documented) at patient's floor/unit and/or counseling patient: Coding Level of Care Code 84951 INT INP/OBS CARE 3/75MIN Diagnoses Nonsustained ventricular tachycardia I47.29 Atrial fibrillation I48.91 Hyponatremia E87.1 Dehydration E86.0 Constipation K59.00 Acquired hypothyroidism E03.9 Hypothyroidism type: acquired (6) Hypothyroidism Hypothyroidism type: acquired Qualified Code(s): E03.9 - Hypothyroidism, unspecified
[2024-02-07 00:32] LABS: Appearance Urine Clear (Clear); Bilirubin Urine Negative (Negative); Blood Urine Negative (Negative); Color Urine Yellow; Glucose Urine UA Negative (Negative); Ketones Urine Trace (Negative); Leukocyte Esterase Urine Negative (Negative); Nitrite Urine Negative (Negative); Protein Urine Negative (Negative); Specific Gravity Urine 1.006 (1.000-1.030); Urobilinogen Urine Negative (Negative)
[2024-02-07] MEDS: NSS + 20MEQ KCL 20 MEQ/1,000 ML BAG IV STA (01:06)
[2024-02-07] MEDS: PANTOprazole 40 MG in SYRINGE 0 ML IV STA (01:07)
[2024-02-07] MEDS: bisacodyL 10 MG SUPP PR STA (01:08)
[2024-02-07 01:22] LABS: INR 1.5 (0.9-1.1); Partial Thromboplastin Time 28 Seconds (21-31); Prothrombin Time 15.6 Seconds (9.0-12.0)
[2024-02-07] MEDS ORDERED: ACETAMINOPHEN 1000 MG/100 ML IV IV PRN (02:23)
[2024-02-07] MEDS ORDERED: ACETAMINOPHEN 1,000 MG/100 ML VIAL IV PRN (02:30)
[2024-02-07] MEDS ORDERED: 0.2 MICRON FILTER SET 1 EACH IV STA (03:48)
[2024-02-07] MEDS ORDERED: STAT IV Infusion **Titration per Protocol STA (03:48)
[2024-02-07] MEDS ORDERED: AMIODARONE IV BOLUS & DRIP IV STA (03:48)
[2024-02-07] MEDS: AMIODARONE / D5W 150 MG/100 ML BAG IV STA (04:19)
[2024-02-07] MEDS: METOPROLOL TARTRATE 1 MG/ML VIAL IV SCH (04:23)
[2024-02-07] MEDS: AMIODARONE / D5W 360 MG/200 ML BAG IV ONE (04:32)
[2024-02-07] MEDS: ENOXAPARIN 80 MG/0.8 ML SYR SQ SCH (04:39)
[2024-02-07 05:31] LABS: Albumin Level 4.2 gm/dl (3.4-5.0); BUN Creatinine Ratio 22.4 (10-20); Blood Urea Nitrogen 15 mg/dl (6-23); Calcium 9.3 mg/dl (8.6-10.3); Carbon Dioxide 25 mmol/L (21-32); Chloride 95 mmol/L (98-107); Creatinine Clr Calc Pharmacy 54.6 ml/min; Est GFR (African American) 91.6 ml/min; Glucose 101 mg/dl (70-99(Fasting)); Phosphorus 3.3 mg/dl (2.5-4.9)
[2024-02-07 05:51] LABS: Basophils # (auto) 0.02 K/uL (0.00-0.20); Basophils % (auto) 0.4 %; Eosinophils # (auto) 0.05 K/uL (0.00-0.50); Hematocrit (blood only) 35.6 % (37.0-47.0); Hemoglobin 11.5 g/dl (12.0-16.0); Immature Granulocytes # (auto) 0.03 K/uL (0.01-0.20); Immature Granulocytes % (auto) 0.6 %; Lymphocytes # (auto) 0.81 K/uL (1.20-3.40); Mean Corpuscular Hemoglobin 26.9 pg (25.0-34.0); Mean Corpuscular Hgb Conc 32.3 g/dL (32.0-36.0); Mean Corpuscular Volume 83.2 fL (80.0-100.0); Mean Platelet Volume 10.9 fL (9.4-12.4); Monocytes # (auto) 0.72 K/uL (0.11-0.59); Monocytes % (auto) 14.2 %; Neutrophils # (auto) 3.43 K/uL (1.40-6.50); Neutrophils % (auto) 67.8 %; Platelet Count 275 K/uL (130-400); RDW Coefficient of Variation 14.7 % (11.5-14.5); RDW Standard Deviation 44.3 fL (36.4-46.3); Red Blood Count 4.28 M/uL (4.20-5.40); White Blood Count 5.06 K/ul (4.8-10.8)
[2024-02-07] MEDS: SODIUM CHLORIDE 0.9% 1,000 ML IV SCH (07:36)
[2024-02-07] MEDS: bisacodyL 10 MG SUPP PR PRN (07:58)
--- NOTE | 2024-02-07 08:12 | XRay Report ---
XR chest 1V not portable HISTORY: Shortness of breath. COMPARISON: Chest 09/25/2023. FINDINGS: No pneumothorax. No pleural effusions. There are healed left-sided rib fractures. No focal lung consolidations to suggest a pneumonia. No evidence for pulmonary edema. The cardiac silhouette i s mildly enlarged. Incidental note is made of a right azygos lobe. IMPRESSION: No acute process. ACT 112: Negative or not required by law. Electronically signed by: Tad Minor M.D. 02/07/2024 8:10 AM
[2024-02-07 09:24] LABS: Magnesium 2.1 mg/dl (1.7-2.4); Potassium 4.2 mmol/L (3.5-5.1)
[2024-02-07] MEDS: AMIODARONE / D5W 360 MG/200 ML BAG IV SCH (10:15)
[2024-02-07] MEDS: PANTOprazole 40 MG in SYRINGE 0 ML IV SCH (11:57)
--- NOTE | 2024-02-07 13:33 | Communication Note ---
Date of Service: February 07, 2024 Please refer to the H&P dictated earlier this morning for details of presentation on admission. In brief, the patient has had abdominal pain, nausea, weakness, poor oral intake for the last few days. Her PCP diagnosed her with constipation and ordered magnesium citrate. When she took the magnesium, she vomited and thus presented to the emergency room. In the ER, she was noted to be hyponatremic and was found to have nonsustained V. tach. She was given a dose of suppository last night with good response. She feels like she still has not evacuated completely and needs to have further bowel movements. She was given another dose of suppository today. She would like to try a clear liquid diet. She says that she is not nauseous at this point. Clear liquid diet ordered. Her sodium has improved with hydration. The patient has a history of atrial fibrillation and was found to have nonsustained V. tach. Currently she is on amiodarone. She had missed her doses of Lopressor and Coumadin. Her INR was subtherapeutic and that she was given a dose of therapeutic Lovenox. Cardiology consulted
[2024-02-07] MEDS: hydrALAZINE HCL 20 MG/ML VIAL IV STA (18:03)
--- OUTSIDE RECORDS SUMMARY | 2024-02-07 20:04 | External Medical Summary | Continuity of Care Document ---
Author Name Unknown Organization [address] Address [address] [place], [place] [id number] Care Team Providers Care Tube M[employer] Name Role Phone Sharmaine Kelly Primary Care Physician [phone] [id number] Date(s): 01/06/24 - 01/06/[address], [address] [place] [address] [phone] Encounter Diagnosis Hypothyroidism, unspecified(Final) - Acute bilateral back pain(Discharge Diagnosis) - 01/05/24 Chronic constipation(Discharge Diagnosis) - 01/05/24 Decubitus ulcer of buttock(Discharge Diagnosis) - 01/05/24 IFG (impaired fasting glucose)(Discharge Diagnosis) - 01/05/24 Hypertension(Discharge Diagnosis) - 01/05/24 Pressure sore on heel(Discharge Diagnosis) - 01/05/24 Afib(Discharge Diagnosis) - 01/05/24 LAY (dyspnea on exertion)(Discharge Diagnosis) - 01/06/24 Upper abdominal pain, unspecified(Discharge Diagnosis) - 01/06/24 Discharge Disposition: Home or Self Care Attending Physician: MD Kelly Amy L Allergies, Adverse Reactions, Alerts Substance Reaction Severity Status methyldopa Active dipyridamole Active Allergy Not found in Search 1 Active [place] Redness Mild Active sertraline dizzy Active venlafaxine dizzy Active Augmentin diarrhea Active sulfa drugs 2 Active Zocor LFT elevation Active Fosamax Acute allergic reaction Mild Acti ve 1wool alcohol (lanolin alcohol) 2lips & throat swelling Assessment and Plan Extracted from: Title:Office Visit Note Author:MD Kelly Amy L D ate:01/06/24 1.Afib STATUS : chronic, stable. DATA : hx & exam reviewed. GOAL : maintain euvolemia, stable cardiac rhythm. PLAN : continue cardiology follow up. Recentlabs showedlipids to be at goal. 2.Upper abdominal pain, unspecified STATUS: Chronic stable. DATA: hx & exam reviewed. GOAL: eval & tx cause of sx. PLAN: she refers to this as chest pain, but points to upper abdomen as location of pain. Her sx could sound suggestive of intestinal angina. Of note, she is not a smoker & is anticoagulated & on daily statin. Will need to follow. 3.Acute bilateral back pain STATUS: sub-acute,stable DATA: hx & exam reviewed. GOAL: resolve pain. PLAN: will get x-rays of lumbar spine & left hip, since this pain did start after fall. She is currently using therapeutic doses of tylenol, requests something else for pain. Discussed options of oral meds, vs PT/chiropractic. Will trialTramadol 50mg q 12 hrs prn.ConsiderPT, if x-rays negative. 4.LAY (dyspnea on exertion) STATUS: Chronic stable. DATA: hx & exam reviewed. GOAL: evaluate cause of sx, maintain respiratory stability. PLAN: discussed with pt & family. By hx, this sounds most consistent with deconditioning. Since she feels that sx may have decreased somewhat, as she has continued to try to do more walking, willcontinue current observation. 5.Decubitus ulcer of buttock Healed & she is pushing herself to avoid long duration of sitting. 6.Pressure sore on heel Healed. 7.IFG (impaired fasting glucose) Status : chronic, well-controlled. Data : dietreviewed. Goal : maintain normal blood sugars. Plan : reviewed huddN4S of 6% (with our goal being under 8%). 8.Chronic constipation STATUS : chronic, stable. DATA : hx & exam reviewed. GOAL : restore normal stooling pattern. PLAN: discussed chronic constipation. She feels that daily use ofMetamucil has been very helpful. 9.Hypertension Status : chronic, controlled. Data : BP readings reviewed. Goal : maintain normal BP. Plan : continue current BP meds. Return in 2-3 months. Time:Total time spent with this patient on day of evaluation including chart review, ordering, education and coordination of care elements: 38_ minutes Immunizations Given and Recorded Vaccine Date Status Refusal Reason pneumococcal 20-valent conjugate vaccine 10/11/22 Given influenza virus vaccine, inactivated 10/09/21 Give n influenza virus vaccine, inactivated 08/20/19 Give n influenza virus vaccine, inactivated 06/03/18 Give n influenza virus vaccine, inactivated 05/20/16 Give n influenza virus vaccine, inactivated 07/12/14 Give n SARS-CoV-2 (COVID-19) mRNA BNT-162b2 vax 01/10/21 Recorded SARS-CoV-2 (COVID-19) mRNA BNT-162b2 vax 12/20/20 Recorded pneumococcal 13-valent vaccine 05/20/16 Given tetanus/diphtheria/pertuss, acel (Tdap) 05/12/15 G iven pneumococcal 23-valent vaccine 07/12/14 Given Medications aspirin 81 mg oral tablet Start: 05/04/14 13:35:00 EDT, 1 tab, PO, Daily Start Date: 05/04/14 Status: Ordered hydroCHLOROthiazide 12.5 mg oral tablet Start: 06/23/23 16:06:00 EDT, 1 tab, PO, Daily, Disp# 90 tab, Refills: 3, Pharmacy: [facility] Start Date: 06/23/23 Status: Ordered ketoconazole 2% topical cream Start: 10/27/23 9:36:00 EST, 1 appl, topical, bid, Disp# 30 g, Refills: 2, Thin layer to groin creases or extrenal vulva BID PRN, Pharmacy: [id number] Start Date: 10/27/23 Status: Ordered levothyroxine 50 mcg (0.05 mg) oral tablet Start: 09/09/23 14:27:00 EST, See Instructions, Disp# 26 tab, Refills: 3, 1 tab PO qD on 6 days of week, omit dose on 1 day of week, Pharmacy: [facility] Start Date: 09/09/23 Status: Ordered lisinopril 10 mg oral tablet Start: 08/11/23 20:19:00 EST, 1 tab, PO, Daily, Disp# 90 tab, Refills: 3, Pharmacy: [facility] Start Date: 08/11/23 Status: Ordered metoclopramide 5 mg oral tablet Start: 10/09/22 11:34:00 EST, 1 tab, PO, qhs, Disp# 90 tab, Refills: 1, other Start Date: 10/09/22 Status: Ordered metoprolol tartrate Start: 01/06/24 10:39:00 EDT, 25 mg =, 2 tablets in AM 2 tablets in PM Start Date: 01/06/24 Status: Ordered Myrbetriq 25 mg oral tablet, extended release Start: 08/18/23 18:36:00 EST, 1 tab, PO, Daily, Disp# 30 tab, Refills: 6, take 1 tablet by mouth once daily, Pharmacy: [id number] Start Date: 08/18/23 Status: Ordered omeprazole 20 mg oral delayed release capsule Start: 08/11/23 20:19:00 EST, 1 cap, PO, Daily, Disp# 90 cap, Refills: 3, Pharmacy: [facility] Start Date: 08/11/23 Status: Ordered Potassium Chloride (Eqv-K-Tab) 10 mEq oral tablet, extended release Start: 11/07/23 15:49:00 EST, 1 tab, PO, Daily, Disp# 90 tab, Refills: 3, Pharmacy: [facility] Start Date: 11/07/23 Status: Ordered pravastatin 40 mg oral tablet Start: 12/03/16 14:00:00, 1 tab, PO, Daily Start Date: 12/03/16 Status: Ordered traMADol 50 mg oral tablet Start: 01/06/24 11:11:00 EDT, 1 tab, PO, q12h, Disp# 40 tab, Refills: 1, PRN: as needed for pain, Pharmacy: [id number] Start Date: 01/06/24 Status: Ordered Tylenol Arthritis Extended Release Start: 09/29/18 15:40:00 EST, 1,300 mg =, PO, q8h Start Date: 09/29/18 Status: Ordered Vitamin B12 50 mcg oral tablet Start: 06/27/21 11:32:00 EDT, 1 tab, PO, Daily Start Date: 06/27/21 Status: Ordered warfarin 5 mg oral tablet Start: 12/08/23 11:56:00 EDT, See Instructions, Disp# 30 tab, Refills: 6, take 1 tablet by mouth daily ON FRIDAY,FRIDAY, FRIDAY, AND FRIDAY, THEN TAKE 1/2 TABLET ON AND FRIDAY, Pharmacy: [id number] Start Date: 12/08/23 Status: Ordered Mental Status 01/06/24 Barriers to Learning one year None evide nt Mandatory Health Literacy Documentation Yes Health Literacy Communication Barriers N ever Primary Language Tajik Problem List Condition Confirmation Course Effective Dates Status H ealth Status Informant Acquired scoliosis Confirmed Active Arthritis Confirmed Active Atrial fibrillation Confirmed Active Afib Confirmed Active Acute bilateral back pain Confirmed Active Basal cell carcinoma (BCC) of forehead Confirmed Active Bereavement Confirmed Active Candidal dermatitis Confirmed Active Candidal vaginitis Confirmed Active Stroke/cerebrovascula r accident Confirmed Active Changing skin lesion Confirmed Active CNH (chondrodermatitis nodularis helicis) Confirmed Active Chronic constipation Confirmed Active Constipation Confirmed Active Diabetes Confirmed Active LAY (dyspnea on exertion) Confirmed Active Vulvar rash Confirmed Active GERD (gastroesophageal reflux disease) Confirmed Active Angioma Confirmed Active History of basal cell carcinoma of skin Confirmed Active Status post total left knee replacement Confirmed Active Hyperlipidemia Confirmed Active Hypertension Confirmed Active Hypothyroidism Confirmed Active IFG (impaired fasting glucose) Confirmed Active IFG (impaired fasting glucose) Confirmed Active Intertrigo Confirmed Active Right lumbar radiculopathy Confirmed Active Nevus of cheek Confirmed Active Osteoarthritis of left knee Confirmed Active Borderline osteopenia Confirmed Active OP (osteoporosis) Confirmed Active Pre-op evaluation Confirmed Active Breast cancer screening by mammogram Confirmed Active Osteopenia after menopause Confirmed Active Pressure ulcer Confirmed Active Decubitus ulcer of buttock Confirmed Active Pressure sore on heel Confirmed Active Decubitus ulcer of sacral region, stage 2 Confirmed Active Bright red rectal bleeding Confirmed Active Seborrheic keratoses Confirmed Active Cataract, senile Confirmed Active Anterior shoulder pain Confirmed Active Lumbar spinal stenosis Confirmed Active Steroid purpura Confirmed Active Upper abdominal pain, unspecified Confirmed Active Daily urinary incontinence Confirmed Active Cutaneous wart Confirmed Active Diagnosis Diagnosis Type Effective Dates Health Status Clinical Service Informant Chronic constipation Discharge Diagnosis 01/05/24 IFG (impaired fasting glucose) Discharge Diagnosis 01/05/24 Acute bilateral back pain Discharge Diagnosis 01/05/24 Hypertension Discharge Diagnosis 01/05/24 Pressure sore on heel Discharge Diagnosis 01/05/24 Decubitus ulcer of buttock Discharge Diagnosis 01/05/24 Afib Discharge Diagnosis 01/05/24 LAY (dyspnea on exertion) Discharge Diagnosis 01/06/24 Non-Specified Upper abdominal pain, unspecified Discharge Diagnosis 01/06/24 Non-Specified Procedures Procedure Date Related Diagnosis Body Site Status Plain X-ray of lumbar spine 1 01/07/24 Completed Cataract surgery 08/2023 Complete d Mammogram 2 07/24/23 Completed Mammogram 3 07/23/22 Completed Chest x-ray 4 01/30/22 Completed X-ray of humerus 5 01/30/22 [facility] Mohs micrographic surgery 07/10/21 Completed Shave biopsy 6 06/27/21 Completed Barium swallow 7 05/04/21 Complete d Bone density scan 8 03/06/21 Compl eted Mammogram 9 03/06/21 Completed Knee arthroplasty 10 07/06/20 Comp leted Total knee arthroplasty 11 07/06/20 Completed Mammogram 12 02/11/19 Completed Chest x-ray 13 10/03/18 Completed MRI of left upper extremity 14 09/28/[address] of face 15 09/19/[address] of head 16 09/19/[address] scan - whole body 17 09/19/18 C ompleted MRI of brain without contrast 18 09/19/18 Completed X-ray of right knee 19 09/19/18 Co mpleted Eye examination 20 09/15/18 [facility]ple [facility] Mammogram 21 12/22/17 Completed Eye examination 22 08/19/17 [facility] Fingers X-ray 23 04/04/17 Complete d Mammogram 24 12/20/16 Completed Colonoscopy 25, 26 09/18/16 Comple [facility] Eye examination 27 07/18/16 [facility] Bone density scan 28, 29 06/20/16 Completed Mammogram 30 12/19/15 Completed Dilated retinal eye exam wit h interpretation by an flatwork catcher or yeast supervisor documented and reviewed (DM) 31 07/13/15 Completed Mammogram 32 12/15/14 Completed Mammogram 33 11/19/13 Completed Holter monitor 34 09/03/13 Complet ed Eye examination 35 06/29/13 [facility] Coronary angiography 36 03/19/13 C ompleted Dual energy X-ray absorptiom etry (DEXA) scan T score 37 04/30/10 Completed Shoulder X-ray 38 04/13/[address] [facility] [address] scan of head 39 08/21/09 [facility] CT of head 40 09/01/08 Completed Chest x-ray 41 08/25/[address] of brain 42 08/25/08 Completed X-ray of abdomen 43 08/25/[address] of abdomen and pelvis 44 08/21/08 Completed Cardiac catheterization 45, 46 08/15/[address] of chest and abdomen 47 02/26/08 Completed US abdominal scan 48 02/26/[address] of head 49 03/10/07 Completed Colonoscopy 03/25/05 Completed Breast reduction 09/08/89 Complete d Appendectomy Completed Discectomy Completed History of tonsillectomy Completed Total hysterectomy Comple [facility] 11. No acute bony abnormality in the lumbar spine. 2.Osteopenia with advanced lumbosacral spondylosis and scoliosis as above [facility]: ACR BI-RADS CATEGORY 2: BENIGN 1. No evidence of malignancy 3No mammographic evidence of malignancy. 1 year screening is recommended. 4[facility] Impression: 1. No acute cardiopulmonary findings. Cardiomegaly 5[facility] Left humerus Impression: 1. No acute osseous pathology 2. Degenerative change at the AC joint 6central forehead 7Moderate aspiration. Correlation with speech pathology consultation and video swallow study recommended. 8[facility] Total Mean T-score: -2.1, BMD: 0.745g/cm Left Forearm T-score: -2.1, BMD: 0.555g/cm 9No mammographic evidence of malignancy. 1 year screening is recommended. 10left knee arthroplasty 11Left knee 12IMPRESSIN: ACR BI-RADS CATEGORY 2: BENIGN There is no mammographic evidence of malignancy. A 1 year screening mammogram is recommended. (02/12/2020) The patient will receive written notification of the results. [facility] Imp[facility]: 1. Left basilar opacities suggest atelectasis 2.. Cardiomegaly without overt pulmonary edema 14[facility] Impression: 1. Grade 1 injuries of the brachialis, biceps brachii, and triceps muscles 2. Low grade tear of the common extensor tendons 15[facility] Impression: 1. Acute nasal bone fractures 2. Smal frontal scalp hematoma 16[facility] Impression: 1. No acute intracranial findings 2. 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 Acute nasal bone fractures 4. Frontal scalp hematoma 17no acute intracranial findings no evidence of acute intracranial hemorrhage old bilateral frontal lobe infarcts and moderate to extensive white matter discease likely on a small vessel ischemic basis. 18[facility] Impression: 1. No acute intracranial findings 2. No evidence of acute intracranial hemorrhage 3. 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 No evidence of intracranial mass 5. No evidence of acute or subacute infarction 6. Frontal scalp hematoma 19[facility] Impression: 1. Moderate patellofemoral arthritic change 2. No acute fractures 20No evidence of retinopathy. 21[facility] Impression: ACR BI-RADS CATEGORY 1: NEGATIVE No evidence of malignancy 22No evidence of retinopathy. 231. Mild soft tissue swelling of the distal first digit without acute bony abnormality or radiopaqueforeign body. 2. Severe first digit interphlangeal and moderate carpometacarpal osteoarthritis. 24No mammographic evidence of malignancy. 25Pathology results: A) Rectum, plypectomy: nonspecific benign polyp B) Distal rectum, biopsy: benignrectal mucosa with specific abnormality. See comment. Comment: The rectal biopsy shows unremarkablearchitecture. There is no acute colitis. I do not see features of lymphocytic colitis or collagenous colitis. No granuloma are noted. I do not see clear evidence of colitis or any specific process. There is no evidence of a neoplasm. 26One 3 mm polyp in the rectum , removed with a cold biopsy forceps, resected and retrieved. Congested mucosa in the distal rectum, biopsied. Non-bleeding internal hemorrhoids. the examination otherwise normal. The examined portion of the ileum was normal. 27[facility] No evidence of retinopathy 28T-scores : spine 1.5; L femur neck -1.9; R femur neck -1.5; total femur -1.6; forearm -0.7; significantly improved from 8/10. 29T-Score -2.3 30There is no mammographic evidence of malignancy. A 1 year screening is recommended. 31no retinopathy 32there is no mammographic evidence of malignancy. a 1 yr screen mamogram is recommeneded 33No evidence of malignancy. One year screening recommended. 34Afib with controlled ventricular response rate. Average rate 80. Couple episodes of high rate episodes but not sustained. Rare PVC's. 35No diabetic retinopathy 36normal 37osteopenia at hip & forearm, spine normal 38Moderate degenerative changes and ostopenia. Downsloping acromion. 39Actue/subacute ischemic infarct in left frontal lobe involving vascular territory of MCA without evidence of acute intracranial hemorrhage. Chronic right frontal lobe infarct. Periventricular and subcortical white matter hypodensities present which is nonspecific, commonly associated with chronic small vessel ischemic disease. 40No acute intracranial findings. 41No acute process 42Very mild increase in size of posterior right frontal infarct. Secondary to normal evalution of infarct rather than true acute extension of structure. Mild chronic small vessel change. No evidence for actue intracranial abnormality. 43Mild ileus. No evidence for obstructive change at this time. 44Abnormal mass in left rectus abdominis region of abdominal wall suggestion probable hematoma with active extravasation. No acute intraabdominal or intrapelvic process suspected. 45Left and right coronary angiography. LV gram. Left cardiac cath. Aortic valve was crossed and successful deployment with Angio-Seal closure device at end of procedure. 46no obstructive disease 47Mild atherosclerotic change of thoracic and abdominal aorta. No evidence for aneurysm or dissection. Remainder of study neg. 48Limited evidence of pancreas due to overlying bowel content. Eval of abdomen and abdominal aorta otherwise neg. No evidence for focal aneurysm. 49No evidence of intracranial hemorrhage or mass effect. Focal encephalomalacic changes in right frontoparietal region suggestion chronic or subacute ischemic infarct. Decrease white matter attenuation suggestion chronic small vessel ischemic disease. Results Laboratory List Name Date Thyroid Stimulating Hormone (TSH) 4 Most recent to oldest [Reference Range]: 1 TSH [0.47-4.68 uIU/mL] 0.50 uIU/mL 1 (01/06/24 11:24 AM) 1Result Comment: Testing Performed By: [facility] of [facility] [address], [place] [address] Vital Signs Most recent to oldest [Reference Range]: 1 Patient Weight 70.1 kg (01/06/24 10:34 AM) Heart Rate 56 bpm (01/06/24 10:34 AM) Respiratory Rate 18 br/min (01/06/24 10:34 AM) Blood Pressure 130/82mmHg (01/06/24 10:34 AM) Cuff Pulse Pressure 48 mmHg (01/06/24 10:34 AM) BP Location # 1 Right Arm (01/06/24 10:34 AM) Social History Social History Type Response Smoking Status Never smoked cigaret sandip Sex Female FCM Outpt Note * MD Leticia, Sharmaine L: PERFORM Event Display: FCM Outpt Note Authored Date: [id number] Chief Complaint follow up, discuss back pain, had a fall in september which has worsened her back pain, left hip pain History of Present Illness * This patient is being followed longitudinally for chronic serious medical problems by Dr. Sharmaine Kelly. Their most recent visitwith Dr. Kelly:09/03/24 Here for recheck offollowing concerns : 1)Back pain - she has had this for last 2-2.5 years. She has been seeing pain clinic & are doing injections in her back. She fell (09/25) after her last injection, landing on her left side. She went to ER, but they did not do x- rays of her back or L hip. Since then, hashad pain in her lower backleft hip.It does not radiate anywhere else. 2) Sore spots on heels/buttocks - she saw rickie, who referred her to wound clinic. Shesaw them 4times. She got pressure pads put on, which did allow these areas to heal. 3) AFib - she gets a feeling like "my bra is too tight" at times. This occurs only after eating a larger meal, like supper. It does not occur with exertion & has no associated SOB, nausea or sweating. She was scheduled to see her carbide tool die maker in Sep, but they had to cancel & she is now not seeing him until March. 4)SOB - her daughter notices that she is often breathing harder than she normally would be. This doesn't coincide with lower chest tightness. No coughing or wheezing. She has been trying to walk up & down the aisles in grocery store for exercise. She thinks that her SOB might be slightly better, since she started trying to do more exercise. Review of Systems Review of Systems- Constitutional: no fatigue or changes in weight. HEENT: no vision changes, or sinus congestion. Respiratory: no cough, +SOB, no wheezing. Cardiac: + chest pain, no palpitations or pedal edema. GI: no abdominal pain, vomiting or change in bowel habits. : no dysuria. Neurologic: no headaches. Musculoskeletal: No joint pains. Physical Exam Vitals & Measurements HR:56(Monitored) RR:18 BP:130/82 SpO2:99% WT:70.1kg WT:70.100kg(Dosing) PHQ2 Data(Data Documented on:01/06/2024 10:34) Emotional health assessment NEGATIVE PE : Alert, in NAD. HEENT - PERRL. TM's - normal. Nares - clear. Oropharynx - normal. Neck - supple, without thyromegaly or lymphadenopathy. Lungs - clear, with good breath sounds bilaterally. Heart - irregular rhythm with some short runs of regularity without murmur. No pedal edema. Abdomen - +BS, soft, NT without HSM or mass. Lower back - subjectively tender left SI area with some palpable paravertebral mm. spasm. Negative straight leg raise. Left hip - FROM without pain, no trochanteric tenderness. Neuro - alert & oriented, speech & cognition normal. Skin - warm & dry. Psych - affect appropriate. Assessment/Plan 1.Afib STATUS : chronic, stable. DATA : hx & exam reviewed. GOAL : maintain euvolemia, stable cardiac rhythm. PLAN : continue cardiology follow up. Recentlabs showedlipids to be at goal. 2.Upper abdominal pain, unspecified STATUS: Chronic stable. DATA: hx & exam reviewed. GOAL: eval & tx cause of sx. PLAN: she refers to this as chest pain, but points to upper abdomen as location of pain. Her sx could sound suggestive of intestinal angina. Of note, she is not a smoker & is anticoagulated & on daily statin. Will need to follow. 3.Acute bilateral back pain STATUS: sub-acute,stable DATA: hx & exam reviewed. GOAL: resolve pain. PLAN: will get x-rays of lumbar spine & left hip, since this pain did start after fall. She is currently using therapeutic doses of tylenol, requests something else for pain. Discussed options of oral meds, vs PT/chiropractic. Will trialTramadol 50mg q 12 hrs prn.ConsiderPT, if x-rays negative. 4.LAY (dyspnea on exertion) STATUS: Chronic stable. DATA: hx & exam reviewed. GOAL: evaluate cause of sx, maintain respiratory stability. PLAN: discussed with pt & family. By hx, this sounds most consistent with deconditioning. Since she feels that sx may have decreased somewhat, as she has continued to try to do more walking, willcontinue current observation. 5.Decubitus ulcer of buttock Healed & she is pushing herself to avoid long duration of sitting. 6.Pressure sore on heel Healed. 7.IFG (impaired fasting glucose) Status : chronic, well-controlled. Data : dietreviewed. Goal : maintain normal blood sugars. Plan : reviewed [id number] of 6% (with our goal being under 8%). 8.Chronic constipation STATUS : chronic, stable. DATA : hx & exam reviewed. GOAL : restore normal stooling pattern. PLAN: discussed chronic constipation. She feels that daily use ofMetamucil has been very helpful. 9.Hypertension Status : chronic, controlled. Data : BP readings reviewed. Goal : maintain normal BP. Plan : continue current BP meds. Return in 2-3 months. Time:Total time spent with this patient on day of evaluation including chart review, ordering, education and coordination of care elements: 38_ minutes Problem List/Past Medical History Ongoing Acquired scoliosis Acute bilateral back pain Afib Angioma Anterior shoulder pain Arthritis Atrial fibrillation Basal cell carcinoma (BCC) of forehead Bereavement Borderline osteopenia Breast cancer screening by mammogram Bright red rectal bleeding Candidal dermatitis Candidal vaginitis Cataract, senile Changing skin lesion Chronic constipation CNH (chondrodermatitis nodularis helicis) Constipation Cutaneous wart Daily urinary incontinence Decubitus ulcer of buttock Decubitus ulcer of sacral region, stage 2 Diabetes LAY (dyspnea on exertion) GERD (gastroesophageal reflux disease) History of basal cell carcinoma of skin Hyperlipidemia Hypertension Hypothyroidism IFG (impaired fasting glucose) IFG (impaired fasting glucose) Intertrigo Lumbar spinal stenosis Nevus of cheek OP (osteoporosis) Osteoarthritis of left knee Osteopenia after menopause Pre-op evaluation Pressure sore on heel Pressure ulcer Right lumbar radiculopathy Seborrheic keratoses Status post total left knee replacement Steroid purpura Stroke/cerebrovascular accident Upper abdominal pain, unspecified Vulvar rash Historical Accidental fall Acute knee pain Acute left-sided low back pain Acute neck pain Acute sciatica Annual physical exam Inflamed seborrheic keratosis Insect bites Mastalgia Procedure/Surgical History Cataract surgery| Service Date: 08/2023Mammogram| Service Date: 07/24/2023Mammogram| Service Date: 07/23/2022X-ray of humerus| Service Date: 01/30/2022hest x-ray| Service Date: 01/30/2022Mohs micrographic surgery| Service Date: 07/10/2021have biopsy| Service Date: 06/27/2021 Barium swallow| Service Date: 05/04/2021one density scan| Service Date: 03/06/2021Mammogram| Service Date: 03/06/2021Total knee arthroplasty| Service Date: 07/06/2020Knee arthroplasty| Service Date: 07/06/2020Mammogram| Service Date: 02/11/2019Chest x-ray| Service Date: 10/03/2018MRI of left upper extremity| Service Date: 09/28/2018CT scan - whole body| Service Date: 09/19/2018MRI of brain without contrast| Service Date: 09/19/2018CT of face| Service Date: 09/19/2018CT of head| Service Date: 09/19/2018X-ray of right knee| Service Date: 09/19/2018Eye exa mination| Service Date: 09/15/2018Mammogram| Service Date: 12/22/2017Eye examination| ServiceDate: 08/19/2017Fingers X-ray| Service Date: 04/04/2017Mammogram| Service Date: 12/20/2016Colonoscopy| Service Date: 09/18/2016Eye examination| Service Date: 07/18/2016Bone density scan| Service Date: 06/20/2016Mammogram| Service Date: 12/19/2015Dilated retinal eye exam with interpretation by an flatwork catcher or yeast supervisor documented and reviewed (DM)| Service Date: 07/13/2015Mammogram| Service Date: 12/15/2014Mammogram| Service Date: 11/19/2013Holter monitor| Service Date: 09/03/2013Eye examination| Service Date: 06/29/2013Coronary angiography| Service Date: 03/19/2013Dual energy X-ray absorptiometry (DEXA) scan T score| Service Date: 04/30/2010Shoulder X-ray| Service Date: 04/13/2010CT scan of head| Service Date: 08/21/2009CT of head| Service Date: 09/01/2008X-ray of abdomen| Service Date: 08/25/2008Chest x-ray| Service Date: 08/25/2008CT of brain| Service Date: 08/25/2008CT of abdomen and pelvis| Service Date: 08/21/2008Cardiac catheterization| Service Date: 08/15/2008US abdominal scan| Service Date: 02/26/2008CT of chest and abdomen| Service Date: 02/26/2008CT of head| Service Date: 03/10/2007Colonoscopy| Service Date: 03/25/2005Breast reduction| Service Date: 09/08/1989DiscectomyHistory of tonsillectomyTotal hysterectomyAppendectomy Medications acetaminophen(Tylenol Arthritis Extended Release), 1300 mg, PO, q8h aspirin(aspirin 81 mg oral tablet), 81 mg= 1 tab, PO, Daily cyanocobalamin(Vitamin B12 50 mcg oral tablet), 50 mcg= 1 tab, PO, Daily hydroCHLOROthiazide(hydroCHLOROthiazide 12.5 mg oral tablet), 1 tab, PO, Daily ketoconazole topical(ketoconazole 2% topical cream), 1 appl, topical, bid, 2 refills levothyroxine(levothyroxine 50 mcg (0.05 mg) oral tablet), See Instructions lisinopril(lisinopril 10 mg oral tablet), 1 tab, PO, Daily metoclopramide(metoclopramide 5 mg oral tablet), 5 mg= 1 tab, PO, qhs, 1 refills metoprolol(metoprolol tartrate), 25 mg mirabegron(Myrbetriq 25 mg oral tablet, extended release), 25 mg= 1 tab, PO, Daily, 6 refills omeprazole(omeprazole 20 mg oral delayed release capsule), 1 cap, PO, Daily potassium chloride(Potassium Chloride (Eqv-K-Tab) 10 mEq oral tablet, extended release), 1 tab, PO,Daily pravastatin(pravastatin 40 mg oral tablet), 40 mg= 1 tab, PO, Daily traMADol(traMADol 50 mg oral tablet), 50 mg= 1 tab, PO, q12h, PRN, 1 refills warfarin(warfarin 5 mg oral tablet), See Instructions, 6 refills Allergies Fosamax (Mild)Acute allergic reaction Lanacane (Mild)Redness Allergy Not found in Search Augmentindiarrhea ZocorLFT elevation dipyridamole methyldopa sertralinedizzy sulfa drugs venlafaxinedizzy Social History Smoking Status Never smoked cigarettes Alcohol - Denies Alcohol Use Exercise - Comments: housework Tobacco Use:Never smoker Family History Cancer: Negative: Mother. Cancer of colon: Paternal Uncle. Cervix cancer...: Mother. Diabetes..: Mother and Father. Heart attack: Mother, Father, Brother, Brother, Brother and Brother. Hypertension: Mother. Stroke: Father. Health Status Family Member(s) Immunizations Vaccine Date Status pneumococcal 20-valent conjugate vaccine 10/11/2022 Given influenza virus vaccine, inactivated 10/09/2021 Given SARS-CoV-2 (COVID-19) mRNA BNT-162b2 vax 01/10/2021 Recorded SARS-CoV-2 (COVID-19) mRNA BNT-162b2 vax 12/20/2020 Recorded influenza virus vaccine, inactivated 08/20/2019 Given influenza virus vaccine, inactivated 06/03/2018 Given influenza virus vaccine, inactivated 05/20/2016 Given pneumococcal 13-valent vaccine 05/20/2016 Given tetanus/diphtheria/pertuss, acel (Tdap) 05/12/2015 Given pneumococcal 23-valent vaccine 07/12/2014 Given influenza virus vaccine, inactivated 07/12/2014 Given Recommendations Health Maintenance Pending(in the next year) OverDue Adult Influenza Vaccine due03/07/23and every 1year Due Adult COVID-19 Vaccination due01/06/24Unknown Frequency Adult Social Determinants of Health Screening due01/06/24Unknown Frequency Falls Plan of Care due01/06/24Unknown Frequency Medicare Annual Wellness Visit due01/06/24and every 1year Shingles Vaccine due01/06/24One-time only Due In Future Diabetes Management A1c not due until11/26/24and every Satisfied(in the past 1 year) Satisfied Body Mass Index on08/01/23.Satisfied by LISS Guillen Courtney D Breast Cancer Screening on07/25/23.Satisfied by SHANTELL Pascal Andrew E Diabetes Management A1c on11/26/23.Satisfied by Contributor_system, [employer] Diabetic Eye Exam on07/09/23.Satisfied by SHANTELL Bone Karli R Lipid Screening on11/26/23.Satisfied by Contributor_system, [id number] Electronic Signature on File Electronically Reviewed/Signed by: Sharmaine Kelly MD Author Signature Dt/Tm:01/06/2024 03:50 PM Metrologist [facility] [address], [facility] [address]. [address] [facility] Patient Care team information Care Team Personnel Name: MD Leticia, Sharmaine Rodriguez Position: Physician - Family Med Member Role: Primary Care Provider Address: Address: [address] [place] [address] [employer], [place] [address] [place] Care Team Related Persons Name: IDALIA LUX Address: home No Address Provided [place] [id number]
[2024-02-07] MEDS: SODIUM CHLORIDE 0.65% NA SOLN 45 ML (OCEAN) PRN (20:22)
[2024-02-08 06:29] LABS: Basophils # (auto) 0.02 K/uL (0.00-0.20); Basophils % (auto) 0.4 %; Eosinophils # (auto) 0.08 K/uL (0.00-0.50); Eosinophils % (auto) 1.8 %; Hematocrit (blood only) 33.6 % (37.0-47.0); Hemoglobin 10.7 g/dl (12.0-16.0); Immature Granulocytes # (auto) 0.02 K/uL (0.01-0.20); Immature Granulocytes % (auto) 0.4 %; Lymphocytes # (auto) 0.71 K/uL (1.20-3.40); Lymphocytes % (auto) 15.9 %; Mean Corpuscular Hemoglobin 26.4 pg (25.0-34.0); Mean Corpuscular Hgb Conc 31.8 g/dL (32.0-36.0); Mean Platelet Volume 9.6 fL (9.4-12.4); Monocytes # (auto) 0.56 K/uL (0.11-0.59); Monocytes % (auto) 12.6 %; Neutrophils # (auto) 3.07 K/uL (1.40-6.50); Neutrophils % (auto) 68.9 %; Platelet Count 253 K/uL (130-400); RDW Standard Deviation 45.6 fL (36.4-46.3); Red Blood Count 4.05 M/uL (4.20-5.40); White Blood Count 4.46 K/ul (4.8-10.8)
[2024-02-08 06:58] LABS: Albumin Level 3.6 gm/dl (3.4-5.0); BUN Creatinine Ratio 14.3 (10-20); Calcium 8.5 mg/dl (8.6-10.3); Creatinine Clr Calc Pharmacy 50.5 ml/min; Est GFR (African American) 89.7 ml/min; Est GFR (Non-African American) 77.4 ml/min; Magnesium 2.1 mg/dl (1.7-2.4); Phosphorus 3.7 mg/dl (2.5-4.9); Potassium 3.5 mmol/L (3.5-5.1)
[2024-02-08] MEDS: POTASSIUM CHLORIDE CRTAB 20 MEQ TABCR PO STA (09:16)
[2024-02-08] MEDS: METOPROLOL TARTRATE 50 MG TAB PO SCH (09:17)
--- NOTE | 2024-02-08 11:02 | Cardiology Consultation ---
Date of Consultation February 08, 2024 Assessment & Plan (1) Nonsustained ventricular tachycardia: (2) Chronic atrial fibrillation: (3) Nausea & vomiting: (4) Acute hyponatremia: (5) Dehydration: (6) Aortic regurgitation: (7) Mitral regurgitation: Plan 89-year-old female admitted with gastrointestinal issues, dehydration, nausea, vomiting, and constipation for 9 days prior to admission. Isolated 30 beat willy of nonsustained ventricular tachycardia recorded on telemetry 02/07/2024 at approximately 3 AM. No associated symptoms. Currently telemetry reveals rate controlled atrial fibrillation. Recommend continue metoprolol to tartrate 50 mg twice daily. Discontinue IV amiodarone. Recommend repeat resting 2D transthoracic echocardiogram. Repeat PT/INR. Discontinue Lovenox when INR > 2.0. Discontinue hydrochlorothiazide due to hyponatremia. I spent a total of 55 minutes on the date of service in preparation, delivery, and documentation of the care provided to this patient, excluding any time spent in the performance of separately billed services. History of Present Illness Reason for Consultation: Nonsustained ventricular tachycardia, atrial fibrillation Requesting Physician: Dr. Lili Copeland Attending Physician: Lili Copeland MD History of Present Illness 89-year-old female presents to the emergency department with constipation, abdominal discomfort, nausea, and vomiting. While in the ER, a 30 beat run of monomorphic ventricular tachycardia was recorded without associated symptoms. Hyponatremia noted on admission. IV amiodarone infusion was subsequently initiated. Cardiology consultation requested for further evaluation. Cardiovascular medical history listed below. Patient seen examined the bedside. Resting comfortably. Denies chest pain, palpitations, lightheadedness, or dizziness. Notes small bowel movement yesterday. Abdominal discomfort improving. No further nausea. Denies orthopnea, PND, or lower extremity edema. Most recent echocardiogram performed summer 2022 demonstrating preserved LV systolic function. Repeat echocardiogram was not performed on admission. Telemetry reveals rate controlled atrial fibrillation. No recurrent ventricular tachycardia. ECG on admission demonstrating rate controlled atrial fibrillation without ischemic changes. INR subtherapeutic on admission prompting prescription of subcutaneous Lovenox. No repeat INR was performed today. Cardiac/medical history: 1. Past paroxysmal and now chronic atrial fibrillation with associated stroke, 3 prior documented events. 2. Chronic chest pain. Normal coronaries by cardiac catheterization x 3, last at [facility] in March 2013. 3. Hypertension 4. Dyslipidemia 5. 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 Type 2 diabetes mellitus. 7. Hypothyroidism 8. Gastroparesis 9. GERD 10. Sensed ventricular ectopy Allergies Allergy/AdvReac Type Severity Reaction Status Date / Time alendronate sodium Allergy Severe Swelling Verified 02/06/24 23:38 [From Fosamax] of Lip/Tongue/Throat benzethonium chloride Allergy Intermediate Rash Verified 02/06/24 23:38 [From Lanacane [place]] benzocaine Allergy Intermediate Rash Verified 02/06/24 23:38 [From Lanacane [place]] sertraline Allergy Intermediate rash Verified 02/06/24 23:38 remembered by pt, dizzy listed on notes. Sulfa (Sulfonamide Allergy Intermediate RASH Verified 02/06/24 23:38 Antibiotics) wool Allergy Intermediate Rash and Verified 02/06/24 23:38 Itching dipyridamole Allergy Unknown pt not sure Verified 02/06/24 23:38 methyldopa Allergy Unknown pt not Verified 02/06/24 23:38 sure / doesn't remember amoxicillin [From Augmentin] AdvReac Intermediate Diarrhea Verified 02/06/24 23:38 clavulanic acid AdvReac Intermediate Diarrhea Verified 02/06/24 23:38 [From Augmentin] simvastatin [From Zocor] AdvReac Intermediate elevated Verified 02/06/24 23:38 LFT Vjlogvh-CNJ-VmE Reductase AdvReac Intermediate MUSCLE PAIN Verified 02/06/24 23:38 Inhibitor [Zyjcynz-Sgu-Ibi Reductase Inhibitor] venlafaxine AdvReac Intermediate pt doesn't Verified 02/06/24 23:38 remember, dizzy listed on notes. Home Medications Medication Instructions Recorded Confirmed Type hydrochlorothiazide 12.5 mg tablet 12.5 mg PO QAM 07/31/18 02/06/24 History levothyroxine 50 mcg tablet 50 mcg PO QAM 07/31/18 02/06/24 History lisinopril 10 mg tablet 10 mg PO QDL 07/31/18 02/06/24 History metoclopramide HCl 5 mg tablet 5 mg PO QAM 07/31/18 02/06/24 History (Reglan) metoprolol tartrate 25 mg tablet 50 mg PO BID 07/31/18 02/06/24 History pravastatin 40 mg tablet 40 mg PO QPM 07/31/18 02/06/24 History omeprazole 20 mg tablet,delayed 20 mg PO QAM 12/03/19 02/06/24 History release aspirin 81 mg tablet,delayed 81 mg PO QAM 06/13/20 02/06/24 History release mirabegron 25 mg tablet,extended 25 mg PO QAM 07/02/21 02/06/24 History release 24 hr (Myrbetriq) calcium carbonate (Calcium 600) 600 mg PO QAM 01/30/22 02/06/24 History warfarin 5 mg tablet See Rx Instructions .Route 01/30/22 02/06/24 History .COMPLEX DVT prophylaxis Lactobacillus 1 cap PO QPM 12/29/22 02/06/24 History acidophilus-Bifidobac.animalis 2 billion cell capsule (TruBiotics) acetaminophen 650 mg 1,300 mg PO Q8H PRN Pain 12/29/22 02/06/24 History tablet,extended release cyanocobalamin (vitamin B-12) 50 3,000 mcg PO QAM 12/29/22 02/06/24 History mcg tablet potassium chloride 10 mEq 10 meq PO QAM 12/29/22 02/06/24 History tablet,extended release diclofenac sodium 1 % topical gel 2 g topical QID PRN Pain 11/11/23 02/06/24 History (Voltaren Arthritis Pain) Patient History Medical History Difficulty swallowing with pills , since stroke. History of colon polyps History of Mohs micrographic surgery for skin cancer History of basal cell cancer forehead/removed. History of kidney stones Overactive bladder SOBOE (shortness of breath on exertion) Arthritis Borderline diabetes diet managed CVA (cerebral vascular accident) ~ 2014. No long-term deficits, on ASA 81mg. Trouble swallowing pills since stroke. GERD (gastroesophageal reflux disease) Spinal stenosis scheduled for epidural injections in Sep 2022 Hypercholesterolemia Hypertension Hypothyroidism Surgical History History of cataract surgery left History of left knee replacement History of bilateral breast reduction surgery Family history of reaction to anesthesia brother>n/v Hx of hysterectomy History of discectomy lumbar History of appendectomy History of tooth extraction History of tonsillectomy and adenoidectomy History of cardiac catheterization X 3 (no stents placed). Normal coronaries on last cath [address] Flores. History of colonoscopy 10 + yr ago -with removal of polyps, post op hemorrhage required blood transfusion. Family History Mother Diabetes Ovarian cancer Sister Family hx of colon cancer Father Diabetes Myocardial infarction Stroke Aunt Breast cancer Brother Myocardial infarction Sister Uterine cancer sarcoma Sister Cancer of peritoneum Other Cervical malignancy GI malignancy Heart disease Liver malignancy Denies family history of Prostate cancer Colorectal cancer Social History Smoking Status: Never smoker Second Hand Exposure: No; Do You Dip or Chew Tobacco: No; Hx Alcohol Use: No Hx Substance Use: No Preferred Language: Slovak Communication Ability: Effective Communication Ability Comment: pt requests lester oconnor help with phone call. Visual Impairment: No Limitations Hearing Ability: Normal Quality Specialist Required: No Beliefs That Will Affect Care: None marital status: Current Living Situation: Alone current occupational status: retired Feels Safe at Home: Yes Assistive Devices: Glasses Review of Systems Review of Systems: All systems reviewed & are unremarkable except as noted in Subjective Physical Exam Constitutional: well developed and well nourished; no acute distress Respiratory: no respiratory distress, no labored breathing and no retractions Auscultation: no crackles, no rales, no rhonchi and no wheezes Cardiovascular: Rate/Rhythm: + irregularly irregular Heart Sounds: normal S1, normal S2 and + murmur (1/6 systolic ejection murmur) Vessels: femoral pulses present; no JVD and no carotid bruit Extremities: no edema Gastrointestinal (Abdomen): Inspection/Auscultation: abdomen normal to inspection and normal bowel sounds; abdomen not distended Percussion/Palpation: + abdomen tender (Mild left lower quadrant tenderness on palpation); no guarding and abdomen not rigid Neurologic: CN's II-XI intact bilaterally and moves all extremities; no focal motor deficits Results & Data Vital Signs (Past 12 Hours) Vital Signs Temp Pulse Resp BP Pulse Ox O2 Del Method 02/08/24 07:44 36.3 C L 92 H 21 125/78 99 Room Air 02/08/24 04:00 36.4 C L 81 17 166/64 H 99 Room Air 02/07/24 23:52 36.4 C L 90 17 137/56 L 99 Room Air Laboratory Results CBC 02/08/24 Range/Units 05:20 WBC 4.46 L (4.8-10.8) K/ul RBC 4.05 L (4.20-5.40) M/uL Hgb 10.7 L (12.0-16.0) g/dl Hct 33.6 L (37.0-47.0) % Plt Count 253 (130-400) K/uL Neut # (Auto) 3.07 (1.40-6.50) K/uL Lymph # (Auto) 0.71 L (1.20-3.40) K/uL [place] # (Auto) 0.56 (0.11-0.59) K/uL Eos # (Auto) 0.08 (0.00-0.50) K/uL Baso # (Auto) 0.02 (0.00-0.20) K/uL Comprehensive Metabolic Panel 02/08/24 Range/Units 05:20 Sodium 134 L (136-145) mmol/L Potassium 3.5 (3.5-5.1) mmol/L Chloride 102 (98-107) mmol/L Carbon Dioxide 24 (21-32) mmol/L BUN 10 (6-23) mg/dl Creatinine 0.70 (0.6-1.2) mg/dl Glucose 89 (70-99(Fasting)) mg/dl Calcium 8.5 L (8.6-10.3) mg/dl Albumin 3.6 (3.4-5.0) gm/dl Intake and Output 02/07/24 02/08/24 02/08/24 22:59 06:59 14:59 Intake Total 192. / 2062.717 999 / 2062.717 Balance 192. / 7 999 / Intake: IV 192. / 2037.717 1000 / 2037. Amiodarone / D5w 360 mg In 200 192.05 / 192.05 ml @ 0.5 MG/MIN 16.667 mls/hr IV .Q12H DAVID Rx#:[id number] Sodium Chloride 0.9% 1,000 ml @ 1000 / 1000 60 mls/hr IV .[id number] DAVID Rx#: [id number] Oral Other: # Unmeasured Voids 1 1 1 Weight 68.855 kg Weight Measurement Method Built in [facility] Diagnostic Findings 2D echocardiogram report 04/25/2023: The LV wall thickness is mildly increased (concentric). The left ventricular wall motion is normal. The qualitative LV ejection fraction is 55-59% (normal). Moderate to severe aortic regurgitation is present. Mild to moderate mitral regurgitation is present. The mitral regurgitation jet is posteriorly directed. Mild tricuspid regurgitation is present. Moderate pulmonary hypertension is present. The estimated pulmonary artery systolic pressure is 55 mm Hg. The proximal ascending thoracic aorta is mildly enlarged, 4 cm. Similar findings described on the report of the previous study dated 02/23/2020. (3) Nausea & vomiting Vomiting type: unspecified Qualified Code(s): R11.2 - Nausea with vomiting, unspecified (6) Aortic regurgitation Cardiac valve disease etiology: nonrheumatic Qualified Code(s): I35.1 - Nonrheumatic aortic (valve) insufficiency (7) Mitral regurgitation Cardiac valve disease etiology: nonrheumatic Qualified Code(s): I34.0 - Nonrheumatic mitral (valve) insufficiency
[2024-02-08] MEDS: lisinopril 10 MG TAB PO SCH (12:26)
--- NOTE | 2024-02-08 13:12 | Hospitalist Progress Note ---
Date of Service February 08, 2024 Assessment & Plan (1) Nonsustained ventricular tachycardia: (2) Atrial fibrillation: (3) Hyponatremia: (4) Dehydration: (5) Constipation: (6) Hypothyroidism: Plan Nonsustained ventricular tachycardia/history of atrial fibrillation- 1 episode of NSVT soon after presentation to the emergency room None since then Was being treated with amiodarone drip [employer]pery [employer]sembler involved Amiodarone discontinued by employee relations manager Patient has been started back on her home dose of metoprolol tartrate 50 mg twice daily Replete potassium today Check echocardiogram Resume Coumadin Check INR daily Continue Lovenox until INR therapeutic Hyponatremia- Initial sodium was 125 Today sodium is better at 134 Was given fluid Hydrochlorothiazide may not be a good choice of antihypertensive given the hyponatremia Blood pressure fairly controlled without it. Constipation Patient had 2 bowel movements since admission Resolved Tolerating meals without any vomiting Advance to full liquid diet today Benign essential hypertension Blood pressure was elevated yesterday since metoprolol and lisinopril were held Metoprolol and lisinopril were resumed today Hydrochlorothiazide still held due to hyponatremia on admission. May disch arge without hydrochlorothiazide if blood pressure fairly controlled without it Full code DVT prophylaxis: Coumadin and Lovenox bridge Admission and Anticipated Discharge Date Admission Date: February 07, 2024 Subjective Patient says that she feels better overall. She had 2 bowel movements since presenting to the emergency room. She feels that she has evacuated enough. She is tolerating of clear liquid diet. She denies any palpitations, chest pain or shortness of breath. Review of Systems Review of Systems: All systems reviewed & are unremarkable except as noted in Subjective Physical Exam Physical Exam: General: Awake, conversant Heart: S1, S2/regular rate and rhythm, no murmur rubs or gallops Lungs: Clear to auscultation bilaterally. Normal effort Abdomen: Soft/nontender/nondistended. No hepatosplenomegaly Extremities: No clubbing/cyanosis. No edema Behavior: Appropriate, cooperative Results & Data Results & Data Vital Signs (Past 12 Hours) Vital Signs Temp Pulse Pulse Resp BP Pulse Ox O2 Del Method 02/08/24 11:07 36.3 C L 61 19 144/75 H 99 Room Air 02/08/24 08:00 73 02/08/24 08:00 Room Air 02/08/24 07:44 36.3 C L 92 H 21 125/78 99 Room Air 02/08/24 04:00 36.4 C L 81 17 166/64 H 99 Room Air Laboratory Results Abnormal lab results 02/08/24 Range/Units 05:20 WBC 4.46 L (4.8-10.8) K/ul RBC 4.05 L (4.20-5.40) M/uL Hgb 10.7 L (12.0-16.0) g/dl Hct 33.6 L (37.0-47.0) % MCHC 31.8 L (32.0-36.0) g/dL RDW Coeff of Charlene 15.0 H (11.5-14.5) % Lymph # (Auto) 0.71 L (1.20-3.40) K/uL Sodium 134 L (136-145) mmol/L Calcium 8.5 L (8.6-10.3) mg/dl PG Care Time/CCT Total # of Minutes Spent Total Time Spent with Patient: Total time spent is greater than 50% in coordination of care (as documented) at patient's floor/unit and/or counseling patient: Coding Level of Care Code 99826 SUB INP/OBS CARE 2/35MIN Diagnoses Nonsustained ventricular tachycardia I47.29 Atrial fibrillation I48.91 Hyponatremia E87.1 Dehydration E86.0 Constipation K59.00 Acquired hypothyroidism E03.9 Hypothyroidism type: acquired (6) Hypothyroidism Hypothyroidism type: acquired Qualified Code(s): E03.9 - Hypothyroidism, unspecified
[2024-02-08] MEDS: WARFARIN SOD 5 MG TAB PO ONE (15:53)
--- NOTE | 2024-02-08 19:52 | Electrocardiogram Report ---
Test Reason : Blood Pressure : / mmHG Vent. Rate : 073 BPM Atrial Rate : 000 BPM P-R Int : 000 ms QRS Dur : 060 ms QT Int : 362 ms P-R-T Axes : 000 -04 061 degrees QTc Int : 398 ms Atrial fibrillation Anteroseptal infarct (cited on or before 19-SEP-2018) Abnormal ECG When compared with ECG of 25-SEP-2023 06:14, Questionable change in initial forces of Anterior leads Confirmed by Jaswinder Arita ([id number]) on 02/08/2024 7:52:15 PM Referred By: Sharmaine Kelly Confirmed By:Jaswinder Arita
[2024-02-08 21:55] LABS: INR 1.9 (0.9-1.1); Prothrombin Time 19.1 Seconds (9.0-12.0)
[2024-02-09] MEDS: ONDANSETRON INJ 2 MG/ML 2 ML VIAL IV PRN (01:12)
--- NOTE | 2024-02-09 05:43 | Electrocardiogram Report ---
Test Reason : Blood Pressure : / mmHG Vent. Rate : 086 BPM Atrial Rate : 000 BPM P-R Int : 000 ms QRS Dur : 076 ms QT Int : 374 ms P-R-T Axes : 000 -02 061 degrees QTc Int : 447 ms Atrial fibrillation Anterior infarct (cited on or before 19-SEP-2018) Abnormal ECG When compared with ECG of 06-FEB-2024 20:16, No significant change was found Confirmed by Jaswinder Arita ([id number]) on 02/09/2024 5:43:40 AM Referred By: Sharmaine Kelly Confirmed By:Jaswinder Arita
[2024-02-09] MEDS: PROCHLORPERAZINE 5 MG in SYRINGE 4 ML IV ONE (06:03)
[2024-02-09 06:12] LABS: Basophils # (auto) 0.02 K/uL (0.00-0.20); Basophils % (auto) 0.3 %; Eosinophils # (auto) 0.06 K/uL (0.00-0.50); Eosinophils % (auto) 0.8 %; Hematocrit (blood only) 32.2 % (37.0-47.0); Hemoglobin 10.4 g/dl (12.0-16.0); Immature Granulocytes # (auto) 0.02 K/uL (0.01-0.20); Immature Granulocytes % (auto) 0.3 %; Lymphocytes # (auto) 0.98 K/uL (1.20-3.40); Lymphocytes % (auto) 13.5 %; Mean Corpuscular Hemoglobin 26.7 pg (25.0-34.0); Mean Corpuscular Hgb Conc 32.3 g/dL (32.0-36.0); Mean Corpuscular Volume 82.8 fL (80.0-100.0); Mean Platelet Volume 9.7 fL (9.4-12.4); Monocytes # (auto) 0.57 K/uL (0.11-0.59); Monocytes % (auto) 7.9 %; Neutrophils # (auto) 5.59 K/uL (1.40-6.50); Neutrophils % (auto) 77.2 %; Platelet Count 253 K/uL (130-400); RDW Coefficient of Variation 15.1 % (11.5-14.5); RDW Standard Deviation 45.3 fL (36.4-46.3); Red Blood Count 3.89 M/uL (4.20-5.40); White Blood Count 7.24 K/ul (4.8-10.8)
[2024-02-09 06:29] LABS: Albumin Level 3.6 gm/dl (3.4-5.0); Calcium 8.6 mg/dl (8.6-10.3); Creatinine Clr Calc Pharmacy 51.2 ml/min; Est GFR (African American) 90.1 ml/min; Est GFR (Non-African American) 77.7 ml/min; Magnesium 2.1 mg/dl (1.7-2.4); Phosphorus 3.5 mg/dl (2.5-4.9)
[2024-02-09 06:37] LABS: INR 1.9 (0.9-1.1); Prothrombin Time 19.7 Seconds (9.0-12.0)
[2024-02-09] MEDS: POLYETHYLENE (MIRALAX) 17 GM PACK PO SCH (09:59)
--- NOTE | 2024-02-09 10:31 | Hospitalist Progress Note ---
Date of Service February 09, 2024 Assessment & Plan (1) Nonsustained ventricular tachycardia: (2) Atrial fibrillation: (3) Hyponatremia: (4) Dehydration: (5) Constipation: (6) Hypothyroidism: Plan Nonsustained ventricular tachycardia/history of atrial fibrillation- 1 episode of NSVT soon after presentation to the emergency room None since then Was being treated with amiodarone drip [employer] Driver involved Amiodarone discontinued by bail bond agent Patient has been started back on her home dose of metoprolol tartrate 50 mg twice daily Echocardiogram reviewed Resumed Coumadin Check INR daily Discontinue Lovenox. INR 1.9 Hyponatremia- Initial sodium was 125 Today sodium is better Was given fluid Hydrochlorothiazide may not be a good choice of antihypertensive given the hyponatremia Blood pressure fairly controlled without it. Constipation Patient had 2 bowel movements since admission Resolved Tolerating meals without any vomiting Advance to full liquid diet today Benign essential hypertension Blood pressure was elevated yesterday since metoprolol and lisinopril were held Metoprolol and lisinopril were resumed today Hydrochlorothiazide still held due to hyponatremia on admission. January discharge without hydrochlorothiazide if blood pressure fairly controlled without it Full code DVT prophylaxis: Coumadin and Lovenox bridge Admission and Anticipated Discharge Date Admission Date: February 07, 2024 Subjective Patient says that she has started to feel constipated again. Her belly is slightly swollen. She is nauseated again. She denies chest pain or shortness of breath. She denies palpitations. Review of Systems Review of Systems: All systems reviewed & are unremarkable except as noted in Subjective Physical Exam Physical Exam: General: Awake, conversant Heart: S1, S2/regular rate and rhythm, no murmur rubs or gallops Lungs: Clear to auscultation bilaterally. Normal effort Abdomen: Soft/nontender/nondistended. No hepatosplenomegaly Extremities: No clubbing/cyanosis. No edema Behavior: Appropriate, cooperative Results & Data Results & Data Vital Signs (Past 12 Hours) Vital Signs Temp Pulse Resp BP BP Pulse Ox O2 Del Method 02/09/24 08:00 Room Air 02/09/24 07:35 36.8 C 70 18 147/73 H 97 Room Air 02/09/24 04:00 36.7 C 88 18 148/60 H 96 Room Air 02/09/24 00:00 36.7 C 95 H 18 156/67 H 95 Room Air PG Care Time/CCT Total # of Minutes Spent Total Time Spent with Patient: Total time spent is greater than 50% in coordination of care (as documented) at patient's floor/unit and/or counseling patient: Coding Level of Care Code 24442 SUB INP/OBS CARE 2/35MIN Diagnoses Nonsustained ventricular tachycardia I47.29 Atrial fibrillation I48.91 Hyponatremia E87.1 Dehydration E86.0 Constipation K59.00 Acquired hypothyroidism E03.9 Hypothyroidism type: acquired (6) Hypothyroidism Hypothyroidism type: acquired Qualified Code(s): E03.9 - Hypothyroidism, unspecified
--- NOTE | 2024-02-09 11:18 | Cardiology Progress Note ---
Date of Service February 09, 2024 Assessment & Plan (1) Nonsustained ventricular tachycardia: (2) Chronic atrial fibrillation: (3) Nausea & vomiting: (4) Acute hyponatremia: (5) Dehydration: (6) Aortic regurgitation: (7) Mitral regurgitation: Plan 89-year-old female admitted with gastrointestinal issues, dehydration, nausea, vomiting, and constipation for 9 days prior to admission. Isolated 30 beat willy of nonsustained ventricular tachycardia recorded on telemetry 02/07/2024 at approximately 3 AM. No associated symptoms. Currently telemetry reveals rate controlled atrial fibrillation. Echo this admission: LVEF 60-65%, moderate MR, moderate to severe biatrial enlargement. No additional VT off of amiodarone. Recommend continue metoprolol to tartrate 50 mg twice daily. INR am of 02/09/24=1.9. Stop lovenox after am dose on 02/08 . Given age of [age] years old and frailty, I feel risk of bleeding with additional lovenox and INR of 1.9 is greater than prophylactic benefit. Continue current dose of coumadin. Repeat PT/ INR and bmp am of 02/09. Admission and Anticipated Discharge Date Admission Date: February 07, 2024 Subjective Pt seen in cardiology follow up. Denies chest pain or palpitations. Ongoing constipation symptoms. Physical Exam Constitutional: well developed and well nourished; no acute distress Respiratory: no respiratory distress, no labored breathing and no retractions Auscultation: no crackles, no rales, no rhonchi and no wheezes Cardiovascular: Rate/Rhythm: + irregularly irregular Heart Sounds: normal S1, normal S2 and + murmur (1/6 systolic ejection murmur) Vessels: femoral pulses present; no JVD and no carotid bruit Extremities: no edema Gastrointestinal (Abdomen): Inspection/Auscultation: abdomen normal to inspection and normal bowel sounds; abdomen not distended Percussion/Palpation: + abdomen tender (Mild left lower quadrant tenderness on palpation); no guarding and abdomen not rigid Neurologic: CN's II-XI intact bilaterally and moves all extremities; no focal motor deficits Results & Data Vital Signs (Past 12 Hours) Vital Signs Temp Pulse Resp BP BP Pulse Ox O2 Del Method 02/09/24 08:00 Room Air 02/09/24 07:35 36.8 C 70 18 147/73 H 97 Room Air 02/09/24 04:00 36.7 C 88 18 148/60 H 96 Room Air 02/09/24 00:00 36.7 C 95 H 18 156/67 H 95 Room Air (3) Nausea & vomiting Vomiting type: unspecified Qualified Code(s): R11.2 - Nausea with vomiting, unspecified (6) Aortic regurgitation Cardiac valve disease etiology: nonrheumatic Qualified Code(s): I35.1 - Nonrheumatic aortic (valve) insufficiency (7) Mitral regurgitation Cardiac valve disease etiology: nonrheumatic Qualified Code(s): I34.0 - Nonrheumatic mitral (valve) insufficiency
[2024-02-09] MEDS: WARFARIN SOD 5 MG TAB PO SCH (18:42)
[2024-02-09] MEDS: POLYETHYLENE (MIRALAX) 17 GM PACK PO PRN (20:40)
[2024-02-10 06:54] LABS: Calcium 8.7 mg/dl (8.6-10.3); Creatinine Clr Calc Pharmacy 42.1 ml/min; Est GFR (African American) 71.9 ml/min; Est GFR (Non-African American) 62.1 ml/min; Potassium 4.1 mmol/L (3.5-5.1)
[2024-02-10 07:05] LABS: INR 2.1 (0.9-1.1); Prothrombin Time 20.9 Seconds (9.0-12.0)
--- NOTE | 2024-02-10 09:35 | Communication Note ---
Date of Service: February 10, 2024 Telemetry reveals atrial fibrillation in the 50-60s. No additional VT overnight. Continue metoprolol. Call cardiology with questions or concerns.
[2024-02-10] MEDS: SOD PHOSPHATE/SOD BIPHOSPHATE ENEMA 132 ML BTL PR STA (10:56)
--- NOTE | 2024-02-10 15:13 | Discharge Summary ---
Date of Service February 10, 2024 Admission HPI Per Admitting Provider The patient is a 88-year-old female with a past medical history including stage III pressure ulcer of buttock/sacral region, vulvitis, syncope, hypothyroidism, A-fib with RVR, lumbar spinal stenosis with history of radiculopathy, B12 deficiency, hypertension, GERD and hyperlipidemia. The patient has had 10 days of symptoms as noted above, which were amplified after trying to take a small dose of magnesium citrate to get her bowels moving this evening prior to arrival. She reports that over the past few days, she has periodically had to lean over against furniture and rest due to fatigue. She does not feel that she would be able to take in any oral food or medications at this time. CT scan of abdomen and pelvis was negative for obstruction. Admission Exam Per Admitting Provider The patient is awake, alert and oriented 3, well developed and well nourished, normocephalic and atraumatic, lying in bed and in no acute distress. HEENT--PERRL, EOMI, mucous membranes and oropharynx dry. Neck-- No JVD. No bruits. Thyroid normal, trachea midline, no adenopathy. Heart-atrial fibrillation. No murmurs, rubs or gallops. Lungs--clear bilaterally, no respiratory distress, no accessory muscle use. Abdomen--normal bowel sounds and soft. Nontender. Mildly distended. No hernias or masses, no organomegaly. Extremities--No edema. Dermatologic--normal skin turgor, normal color, no abnormal lymph nodes, no rash. Neurologic--cranial nerves II through XII grossly intact. Rheumatologic--normal range of motion. Psychiatric--normal affect Principal Diagnosis Nonsustained V. tach Hyponatremia Constipation Benign essential hypertension Discharge Exam General: Awake, conversant Heart: S1, S2/regular rate and rhythm, no murmur rubs or gallops Lungs: Clear to auscultation bilaterally. Normal effort Abdomen: Soft/nontender/nondistended. No hepatosplenomegaly Extremities: No clubbing/cyanosis. No edema Behavior: Appropriate, cooperative Discharge Data Allergies Allergy/AdvReac Type Severity Reaction Status Date / Time alendronate sodium Allergy Severe Swelling Verified 02/06/24 23:38 [From Fosamax] of Lip/Tongue/Throat benzethonium chloride Allergy Intermediate Rash Verified 02/06/24 23:38 [From Lanacane Fielding] benzocaine Allergy Intermediate Rash Verified 02/06/24 23:38 [From Lanacane Fielding] sertraline Allergy Intermediate rash Verified 02/06/24 23:38 remembered by pt, dizzy listed on notes. Sulfa (Sulfonamide Allergy Intermediate RASH Verified 02/06/24 23:38 Antibiotics) wool Allergy Intermediate Rash and Verified 02/06/24 23:38 Itching dipyridamole Allergy Unknown pt not sure Verified 02/06/24 23:38 methyldopa Allergy Unknown pt not Verified 02/06/24 23:38 sure / doesn't remember amoxicillin [From Augmentin] AdvReac Intermediate Diarrhea Verified 02/06/24 23:38 clavulanic acid AdvReac Intermediate Diarrhea Verified 02/06/24 23:38 [From Augmentin] simvastatin [From Zocor] AdvReac Intermediate elevated Verified 02/06/24 23:38 LFT Xfbzkvf-JKR-LuQ Reductase AdvReac Intermediate MUSCLE PAIN Verified 02/06/24 23:38 Inhibitor [Xkfnrqo-Pvk-Xcw Reductase Inhibitor] venlafaxine AdvReac Intermediate pt doesn't Verified 02/06/24 23:38 remember, dizzy listed on notes. Consultations 02/07/24 00:01 ED Decision to Admit Stat 02/08/24 08:06 Consult Cardiology Routine Ordered Studies 02/06/24 20:39 CT abd pelvis wo con Stat Hospital Course (1) Nonsustained ventricular tachycardia: (2) Atrial fibrillation: (3) Hyponatremia: (4) Dehydration: (5) Constipation: (6) Hypothyroidism: Plan Nonsustained ventricular tachycardia/history of atrial fibrillation- 1 episode of NSVT soon after presentation to the emergency room None since then Was initially started on amiodarone drip Homebirth Midwife involved Amiodarone discontinued by concrete layer Patient has been started back on her home dose of metoprolol tartrate 50 mg twice daily Echocardiogram reviewed Resumed Coumadin INR therapeutic Discontinue Lovenox. INR 1.9 Being discharged on her home dose of metoprolol Homebirth Midwife cleared the patient for discharge Hyponatremia- Initial sodium was 125 Today sodium is better Was given fluid Hydrochlorothiazide may not be a good choice of antihypertensive given the hyponatremia Blood pressure fairly controlled without it. Discontinued hydrochlorothiazide upon discharge Constipation Patient has had a few bowel movements but she did not feel like she had evacuated enough She ended up needing a fleets enema Resolved Tolerating meals without any vomiting Encouraged the patient to ambulate at home, use her usual stool softeners and follow-up with her PCP Benign essential hypertension Blood pressure stable Metoprolol and lisinopril were resumed Hydrochlorothiazide discontinued upon discharge due to hyponatremia I personally spoke to the daughter on the phone to update her about discharge plan today. Total Time Total Time Spent Total Time Spent (In Minutes): 35 Discharge Plan Discharge Items Patient Disposition: Home - Self-Care Reason For Visit: ABD PAIN, NAUSEA AND VOMITING, HYPONATREMIA Discharge Diagnosis: Nonsustained V. tach Hyponatremia Constipation Benign essential hypertension Condition on Discharge: Good Activity: Resume your previous activity Non-emergency contact: Primary Care Provider Call non-emergency contact if: you have any medication questions and your symptoms worsen Follow-up/Referrals: Sharmaine Kelly MD [Primary Care Provider] - 02/12/24 1:25 pm (with Dr. Melara at the [facility] office. ) Diet: Heart Healthy Addtl Attending Provider Instructions: Advised to follow-up with PCP in 1 week Pending Studies at Discharge: No Stand-Alone Forms: My [facility] [employer] [facility] [facility] Medications and DC Order Prescriptions: Continued diclofenac sodium [Voltaren Arthritis Pain] 1 % gel 2 g topical QID PRN (Reason: Pain) omeprazole 20 mg Tablet,Delayed Release (Dr/Ec) 20 mg PO QAM pravastatin 40 mg tablet 40 mg PO QPM metoclopramide HCl [Reglan] 5 mg tablet 5 mg PO QAM levothyroxine 50 mcg tablet 50 mcg PO QAM lisinopril 10 mg tablet 10 mg PO QDL metoprolol tartrate 25 mg tablet 50 mg PO BID aspirin 81 mg Tablet,Delayed Release (Dr/Ec) 81 mg PO QAM mirabegron [Myrbetriq] 25 mg tablet extended release 24 hr 25 mg PO QAM calcium carbonate [Calcium 600] 600 mg calcium (1,500 mg) Tablet 600 mg PO QAM warfarin 5 mg tablet See Rx Instructions .ROUTE .COMPLEX Rx Instructions: TAKES 5 MG ON MON, WED, & FRI, THEN 2.5 MG SUN, TUES, THURS, & SAT. potassium chloride 10 mEq tablet extended release 10 meq PO QAM TruBiotics 2 billion cell Capsule 1 cap PO QPM acetaminophen 650 mg Tablet Extended Release 1,300 mg PO Q8H PRN (Reason: Pain) cyanocobalamin (vitamin B-12) 50 mcg Tablet 3,000 mcg PO QAM Discontinued hydrochlorothiazide 12.5 mg tablet 12.5 mg PO QAM Discharge Orders: Discharge Order (Routine); Ordered 02/10/24 Ordered By: Lili Copeland Admission Data Admit Date/Time: 02/07/24 00:10 Attending Provider: Lili Copeland Admit Provider: Umair Lindsay Primary Care Provider: Sharmaine Kelly Other Providers: Umair Lindsay; Taras Decker; [facility],Home Healthcare; [facility],Home Care Fax Other Interventions: Discharge Summary Assessment (RN) Last Done: 02/10/24 13:41 Coding Level of Care Code 74155 INP/OBS DISCH >30 MIN Diagnoses Nonsustained ventricular tachycardia I47.29 Atrial fibrillation I48.91 Hyponatremia E87.1 Dehydration E86.0 Constipation K59.00 Acquired hypothyroidism E03.9 Hypothyroidism type: acquired
[2024-02-10] MEDS ORDERED: WARFARIN SOD 2.5 MG TAB PO SCH (16:00)
== END 2024-02-10 14:00 | disposition home or self-care (01) | DRG 309 ==
LOC: ED 19:41 → SUATTDRO 02-07 00:10 → EDINP 02-07 00:10 → 2E 02-07 02:24